=== PATIENT | female | born 1955 | race Caucasian/White ===

== ENCOUNTER 2020-03-20 06:54 | Day surgery (SDC) | payer OTHER, SELFPAY ==
--- NOTE | 2020-03-18 12:50 | P.CONAN_ITS ---
Documented by User: Erlinda Rolle 03/18/20 12:52 HPI - Anesthesia Eval Consult details Narrative: 65yo F [facility] Past Medical History Medical History Anxiety COPD (chronic obstructive pulmonary disease) Depression Hyperlipemia Osteoporosis Overactive bladder Surgical History Surgical History H/O oral surgery Hx of colonoscopy Social History Social History Smoking Status: Current every day smoker Packs Per Day: 0.5 Cigarettes Per Day: 10.0 Advance Directives: No Advance Directives Information Provided: No Meds Allergies Allergy/AdvReac Type Severity Reaction Status Date / Time No Known Allergies Allergy Verified 03/18/20 12:52 Home Medications Medication Instructions Recorded Confirmed Type bupropion HCl 1 tab PO BID 03/16/20 03/16/20 History calcium-mag oxide-vitamin D3 2 cap PO 03/16/20 History [Coral Calcium Plus] cholecalciferol (vitamin D3) 50 mcg PO DAILY 03/16/20 03/16/20 History [Vitamin D3] omega-3 fatty acids-fish oil 1 cap PO DAILY 03/16/20 03/16/20 History [[place] 3 Fish Oil] sertraline 1 tab PO DAILY 03/16/20 03/16/20 History simvastatin 20 mg PO BEDTIME 03/16/20 03/16/20 History umeclidinium [Incruse Ellipta] 1 inh INHALATION DAILY 03/16/20 03/16/20 History Exam Exam Date and Time: March 18, 2020 1250 Assessment and Plan Assessment Anesthesia Assessment: Chart Reviewed (03/18/20 ) Documented by User: Jacob Kumar 03/20/20 08:09 [facility] Past Medical History Medical History Anxiety COPD (chronic obstructive pulmonary disease) Depression Hyperlipemia Osteoporosis Overactive bladder Surgical History Surgical History H/O oral surgery Hx of colonoscopy Social History Social History Smoking Status: Current every day smoker Packs Per Day: 0.5 Cigarettes Per Day: 10.0 Advance Directives: No Advance Directives Information Provided: No Meds Allergies Allergy/AdvReac Type Severity Reaction Status Date / Time No Known Allergies Allergy Verified 03/18/20 12:52 Home Medications Medication Instructions Recorded Confirmed Type bupropion HCl 1 tab PO BID 03/16/20 03/16/20 History calcium-mag oxide-vitamin D3 2 cap PO 03/16/20 History [Coral Calcium Plus] cholecalciferol (vitamin D3) 50 mcg PO DAILY 03/16/20 03/16/20 History [Vitamin D3] omega-3 fatty acids-fish oil 1 cap PO DAILY 03/16/20 03/16/20 History [[place] 3 Fish Oil] sertraline 1 tab PO DAILY 03/16/20 03/16/20 History simvastatin 20 mg PO BEDTIME 03/16/20 03/16/20 History umeclidinium [Incruse Ellipta] 1 inh INHALATION DAILY 03/16/20 03/16/20 History Exam Airway Mallampati Class: II TM Dist: >3cm Neck ROM: Full Loose/Missing/Broken Teeth: No Heart: rrr+[id number] Lungs: cta b/l Assessment and Plan Assessment Anesthesia Assessment: Anesthesia Plan Discussed, Consent Obtained, Smoking Cess. Discussed, PAT Visit and Chart Reviewed Final Anesthetic Review NPO: Yes Intake Type: Clears Intake Timing: Greater than 8 hours and Solids Intake Timing: Greater than 8 hours ASA Class: II Final Preanesthetic Review: No Changes in Pt Med Stat, Meds & Allergies Reviewed , Consent Obtained/Reviewed, Med/Surg/Anes Hx Reviewed and Anes Risks/Benef Reviewed Patient Risk: Low Procedure Risk: Low Anesthetic Plan Anesthetic Plan: MAC: Disposition: Standard PACU
[2020-03-20 07:37] VITALS: BP 106/62; PULSE 80; RESP 16; TEMP 36.2; O2SAT 98; BMI 22.6
[2020-03-20 09:21] VITALS: BP 101/55; PULSE 67; RESP 16; TEMP 36.1; O2SAT 100
--- NOTE | 2020-03-20 09:21 | PM.OP ---
Brief Operative Note Date of procedure: 03/20/20 Pre-op diagnosis: Screening Post-op diagnosis: other (Diverticulosis. Internal Hemorrhoids) Procedure: Colonoscopy to cecum Anesthesia: MAC Surgeon: Luis Antonio Strong Pathology: none sent Condition: stable Disposition: PACU
[2020-03-20 09:36] VITALS: BP 108/51; PULSE 67; RESP 16; O2SAT 100
[2020-03-20 09:49] VITALS: BP 124/68; PULSE 64; RESP 16; TEMP 36.1; O2SAT 99
[2020-03-20] MEDS: Lactated Ringers 1,000 ML 100 ML IVCONT (10:00)
--- NOTE | 2020-03-20 10:10 | HO.POSTANES ---
Post Anesthesia Evaluation Post Anesthesia Evaluation Vital Signs: Vital Signs Temp Pulse Resp BP Pulse Ox 03/20/20 09:49 97 F 64 16 124/68 99 03/20/20 09:36 67 16 108/51 L 100 03/20/20 09:21 97 F 67 16 101/55 L 100 03/20/20 07:37 97.2 F 80 16 106/62 98 Anesthesia: Monitored Mental Status: Awake Pain Control: Satisfactory Nausea/Vomiting: None Hydration: Adequate Anesthesia-Related Issues: No Anes. Related Issues
--- NOTE | 2020-03-20 11:59 | OP_ITS ---
SURGEON: Luis Antonio Strong MD INDICATIONS: The patient presents for evaluation of personal history of tubular adenoma of the colon and colorectal cancer screening. Full consent has been obtained from her for this, including risks of bleeding and perforation. PREOPERATIVE DIAGNOSIS: POSTOPERATIVE DIAGNOSIS: PROCEDURE PERFORMED: Colonoscopy to the cecum. ESTIMATED BLOOD LOSS: COMPLICATIONS: ANESTHESIA: Monitored anesthesia care. ASSISTANTS: SPECIMENS: PREOPERATIVE DIAGNOSES: Colorectal cancer screening and personal history of tubular adenoma of the colon. POSTOPERATIVE DIAGNOSES: Colorectal cancer screening and personal history of tubular adenoma of the colon, sigmoid diverticulosis, and internal hemorrhoids. DESCRIPTION OF PROCEDURE: The patient was placed in the left lateral decubitus position. The digital rectal exam revealed no abnormalities. The Olympus video pediatric colonoscope was entered into the rectum and advanced easily to the cecum. Once in the cecum, I did identify normal-appearing cecal pouch with appendiceal orifice and a normal-appearing ileocecal valve. The entire cecum and ileocecal valve appeared normal. There was transillumination of light deep in the right lower quadrant. The scope was slowly withdrawn assessing all mucosal surfaces carefully. Preparation was excellent. I did not visualize any sign of polyps, colitis, nor angiodysplasia. There was a mild amount of sigmoid diverticulosis. In the rectum, scope was retroflexed visualizing internal hemorrhoids, but no other pathology. The rectal mucosa appeared normal. The scope was straightened and withdrawn from the patient. She tolerated the procedure well and was returned to the recovery area in stable condition. IMPRESSION: 1. Sigmoid diverticulosis. 2. Internal hemorrhoids. PLAN: Given her previous history of tubular adenomas, I would recommend a followup colonoscopy in 5 years for further screening. She will otherwise see me on a p.r.n. basis. MD DESMOND Altman/JOHN / [id number]
== END 2020-03-20 10:12 | disposition home or self-care (01) ==
PROVIDERS: PCP Nurse Practitioner Family; Visit Provider Internal Medicine
PROC: 0DJD8ZZ Inspection of Lower Intestinal Tract, Via Natural or Artificial Opening Endoscopic (ICD-10-PCS; CPT 45378; principal; 2020-03-20 08:10)
DX: Z12.11 Encounter for screening for malignant neoplasm of colon (principal); Z86.010 Personal history of colon polyps; Z80.0 Family history of malignant neoplasm of digestive organs; K57.30 Diverticulosis of large intestine without perforation or abscess without bleeding; K64.8 Other hemorrhoids; J44.9 Chronic obstructive pulmonary disease, unspecified; F32.9 Major depressive disorder, single episode, unspecified; E78.5 Hyperlipidemia, unspecified; N32.81 Overactive bladder; M81.0 Age-related osteoporosis without current pathological fracture; F17.210 Nicotine dependence, cigarettes, uncomplicated; Z79.899 Other long term (current) drug therapy; Z79.51 Long term (current) use of inhaled steroids
CPT/HCPCS: 45378

== ENCOUNTER 2020-04-27 16:38 | Outpatient (REF) | payer OTHER, SELFPAY | END 2020-04-27 16:39 | disposition home or self-care (01) | LOC: HO.LAB 16:38 | PROVIDERS: PCP Nurse Practitioner Family; Visit Provider Internal Medicine | DX: Z20.828 Contact with and (suspected) exposure to other viral communicable diseases (principal) | CPT/HCPCS: C9803; U0003 ==

== ENCOUNTER 2020-05-08 15:06 | Outpatient (REF) | payer SELFPAY ==
--- NOTE | 2020-05-11 14:21 | MHC.AU.P13 ---
Hearing Aid Evaluation- Binaural Date of Visit: 05/08/20 Vending Machine Collector Used: Description of Hearing: Right ear: Normal from 250-1000 Hz, sloping to a moderate sensorineural hearing loss. Left ear: Borderline-normal sloping to moderate sensorineural hearing loss. Thresholds are 5-15 dBHL worse than those in the right ear. Summary: Ms. Alba was tested here on 02/28/20 and hearing aids were recommended. She notes that she's only interested in a hearing aid for the left ear at this time. She is an [employer] [facility] [employer] employee and would qualify for the employee hearing aid discount. Hearing aid options and styles were discussed. DAIN style aids were recommended. She noted that she would likely be interested in rechargeable aids. She was provided with a DataNitro P50-R (SN: [id number]) hearing aid and contour stitcher to use for several weeks to help her better decide whether she would like to pursue amplification at this time. Set to 50 level technology as that is the level she is considering purchasing. Recommendations: Recommendations: Scheduled another appointment for 06/01/20, at which time she will return the loaner hearing aid and contour stitcher and further discuss hearing aid options and make decisions on how she would like to proceed. Diagnosis Code(s): Primary Diagnosis: H90.3 Bilateral Sensorineural Hearing Loss Signature: Provider: Pauly Sampson, [facility]
== END 2020-05-08 15:07 | disposition home or self-care (01) ==
LOC: HO.HAP 15:06
PROVIDERS: PCP Nurse Practitioner Family; Referring Provider Nurse Practitioner Family; Visit Provider Nurse Practitioner Family
DX: Z13.89 Encounter for screening for other disorder (principal)
CPT/HCPCS: 92700

== ENCOUNTER 2020-06-23 10:17 | Outpatient (REF) | payer OTHER, SELFPAY ==
[2020-06-23 10:33] LABS: COVID-19 Test Negative (Negative); IDNOW Serial# 55D5AD1C
== END 2020-06-23 10:18 | disposition home or self-care (01) ==
LOC: HO.EMPCOV 10:17
PROVIDERS: Visit Provider Internal Medicine
DX: Z20.822 Contact with and (suspected) exposure to COVID-19 (principal)
CPT/HCPCS: 36415; 87635; C9803

== ENCOUNTER 2020-07-21 11:42 | Outpatient (REF) | payer SELFPAY ==
[2020-07-21 12:27] LABS: Cholesterol 220 mg/dL
== END 2020-07-21 11:43 | disposition home or self-care (01) ==
LOC: HO.LNC 11:42
PROVIDERS: Visit Provider Pathology Anatomic Pathology & Clinical Pathology
DX: Z13.89 Encounter for screening for other disorder (principal)
CPT/HCPCS: 36415; 82465

== ENCOUNTER 2020-07-29 15:45 | Outpatient (REF) | payer SELFPAY ==
--- NOTE | 2020-07-30 14:34 | MHC.AU.P13 ---
Hearing Aid Evaluation- Left Ear Date of Visit: 07/29/20 Description of Hearing: Borderline-normal sloping to a moderate sensorineural hearing loss in the left ear, worse than the right ear. Normal sloping to moderate sensorineural hearing loss in the right. Additional Information: Ms. Alba has been using a loaner hearing aid and she states that it makes a big difference. She would like to proceed with purchasing a hearing aid for the left ear. Hearing Instrument Selection: Left Ear: Drupal Architect: [employer] Model: iKlax Media P70-R Battery Size: Rechargeable Color: Silver Valle Straight Pin Making Machine Operator: Size 0 M Type of Dome: Open Plan: Plan of Care for Hearing Instrument Fitting: Patient wishes to purchase hearing aids as prescribed Action Taken/Action Needed: Comments: Patient qualifies for the employee discount of 25%. Quoted $1837.50 total for the left hearing aid. Diagnosis Code(s): Primary Diagnosis: H90.3 Bilateral Sensorineural Hearing Loss Signature: Provider: Pauly Sampson, CCC-A
== END 2020-07-29 15:46 | disposition home or self-care (01) ==
LOC: HO.HAP 15:45
PROVIDERS: Visit Provider Nurse Practitioner Family
DX: Z13.89 Encounter for screening for other disorder (principal)

== ENCOUNTER 2020-08-19 15:53 | Outpatient (REF) | payer OTHER, SELFPAY | END 2020-08-19 15:54 | disposition home or self-care (01) | LOC: HO.HAP 15:53 | PROVIDERS: Visit Provider Otolaryngology | DX: Z46.1 Encounter for fitting and adjustment of hearing aid (principal); H90.3 Sensorineural hearing loss, bilateral | CPT/HCPCS: V5257; V5299 ==

== ENCOUNTER 2020-09-19 07:27 | Outpatient (REF) | payer OTHER, SELFPAY ==
--- NOTE | ~2020-09-19 | MM_ITS ---
EXAMINATION: MM SCREENING DIGITAL BREAST TOMOSYNTHESIS, BILATERAL CLINICAL INFORMATION: Screening. Asymptomatic. The lifetime risk of breast cancer based on the Tyrer-Cuzick Model is 8%. COMPARISON: Mammography: 06/29/2019, 06/06/2018, 05/04/2017 TECHNIQUE: Digital breast tomosynthesis is performed in both the craniocaudal and mediolateral oblique views along with computer-aided detection (CAD). Synthesized 2D images are generated from the tomosynthesis. FINDINGS: There are scattered areas of fibroglandular density (ACR BI-RADS breast composition Category b). There are no significant masses, abnormal calcifications, or other abnormalities. The axilla and skin contours are unremarkable. No significant changes from prior exams. MM/MM tomosynthesis screening BI IMPRESSION: No mammographic evidence of malignancy. ASSESSMENT: BI-RADS 1: Negative RECOMMENDATION: Routine annual mammography screening. This patient's information was entered into a reminder system with a target due date for their next mammogram.
== END 2020-09-19 07:28 | disposition home or self-care (01) ==
LOC: HO.MAMMO 07:27
PROVIDERS: PCP Nurse Practitioner Family; Visit Provider Nurse Practitioner Family
DX: Z12.31 Encounter for screening mammogram for malignant neoplasm of breast (principal)
CPT/HCPCS: 77063; 77067

== ENCOUNTER 2021-03-08 07:42 | Outpatient (REF) | payer OTHER, SELFPAY ==
[2021-03-08 10:27] LABS: Hematocrit 45.5 % (37-47); Hemoglobin 14.8 g/dl (12.0-16.0); Mean Corpuscular HGB Conc 32.5 g/dl (31.0-35.0); Mean Corpuscular Hemoglobin 31.4 pg (27.0-33.0); Mean Corpuscular Volume 96.6 fL (80-98); Mean Platelet Volume 10.1 fL (9.4-12.3); Platelet Count 245 X10*3/uL (160-400); Red Blood Count 4.71 X10*6/uL (4.20-5.50); Red Cell Distribution Width 12.6 % (11.0-16.0); White Blood Count 4.6 X10*3/uL (4.8-10.8)
[2021-03-08 10:57] LABS: Alanine Aminotransferase 12 U/L (0-31); Albumin Level 4.1 g/dL (3.5-5.0); Alkaline Phosphatase 58 U/L (39-117); Anion Gap 10 (12-20); Aspartate Amino Transferase 19 U/L (5-31); Bilirubin Total 0.7 mg/dL (0.0-1.0); Blood Urea Nitrogen 13 mg/dL (9-16); Calcium 9.1 mg/dL (8.4-10.2); Carbon Dioxide 28 mmol/L (22-29); Chloride 106 mmol/L (96-108); Cholesterol 256 mg/dL; Estimated Glomerular Filt Rate > 60; Glucose Fasting 99 mg/dL (60-99); HDL Cholesterol 79 mg/dL; LDL Cholesterol Calculated 162 mg/dl; Potassium 4.4 mmol/L (3.3-5.1); Sodium 140 mmol/L (135-145); Triglycerides 79 mg/dL
[2021-03-08 11:01] LABS: HIV AB/AG Nonreactive (Nonreactive); HIV Num 1 0.07 S/CO (0.00-0.99); ~HepC Num1 0.11 S/CO (0.00-0.79); ~Hepatitis C Antibody Nonreactive (Nonreactive)
[2021-03-08 11:35] LABS: Vitamin D 25-OH Total 46.7 ng/mL (>30)
== END 2021-03-08 07:43 | disposition home or self-care (01) ==
LOC: HO.10HDL 07:42
PROVIDERS: Visit Provider Nurse Practitioner Family
DX: Z00.00 Encounter for general adult medical examination without abnormal findings (principal); Z11.59 Encounter for screening for other viral diseases; Z11.4 Encounter for screening for human immunodeficiency virus [HIV]; M85.80 Other specified disorders of bone density and structure, unspecified site
CPT/HCPCS: 36415; 80053; 80061; 82306; 85027; 86803; 87389

== ENCOUNTER 2021-03-10 10:26 | Outpatient (REF) | payer OTHER, SELFPAY ==
--- NOTE | ~2021-03-10 | MM_ITS ---
EXAMINATION: BONE DENSITOMETRY CLINICAL INDICATION: Osteopenia. COMPARISON: Previous BD dated 06/08/2018 and baseline BD dated 11/02/2006. TECHNIQUE: Using a Richmedia DXA System (software version: 13.1) manufactured by [employer], dual-energy x-ray absorptiometry was performed of the lumbar spine and left hip. The images are of good technical quality. Summary results are attached. FINDINGS: AP SPINE L1-L4: Current: BMD 0.963 g/cm2, Z-score -0.1, T-score -1.8, osteopenia, 0.8% increase from previous, 3.8% decrease from baseline (<5% change is not significant). Prior: BMD 0.955 g/cm2. Baseline: BMD 1.001 g/cm2. LEFT FEMUR, NECK: Current: BMD 0.735 g/cm2, Z-score -0.6, T-score -2.2, osteopenia. Prior: BMD 0.766 g/cm2. Baseline: BMD 0.813 g/cm2. LEFT FEMUR, TOTAL: Current: BMD 0.810 g/cm2, Z-score -0.3, T-score -1.6, osteopenia, 0.6% decrease from previous, 10.7% decrease from baseline (<5% change is not significant). Prior: BMD 0.815 g/cm2. Baseline: BMD 0.907 g/cm2. IDENTIFIED RISK FACTORS: Osteoporosis, tobacco use (current smoker). Early menopause, secondary osteoporosis. HISTORY OF FRACTURE: None listed. MEDICATIONS: Calcium supplements or multivitamin, vitamin D. MM/XR DEXA axial skeleton IMPRESSION: 1. DIAGNOSIS: Osteopenia based on the lowest T-score value of -2.2 in the femoral neck applying World Health Organization criteria. 2. 10-YEAR FRACTURE RISK PREDICTION, FRAX: Major osteoporotic fracture (clinical spine, forearm, hip or shoulder) 12.0%. Hip fracture 3.5%. 3. Treatment Recommendations: NOF guidelines recommend consideration for treatment in postmenopausal women and men age 50 and older presenting with the following: -A hip or vertebral (clinical or morphometric) fracture. -T-score less than or equal to -2.5 at the femoral neck or spine after appropriate evaluation to exclude secondary causes. -Low bone mass at the hip or spine and a 10-year fracture probability by FRAX of greater than or equal to 3% for hip fracture or greater than or equal to 20% for major osteoporotic fracture based on the [place] adapted WHO algorithm. 4. Other Recommendations: All treatment decisions require clinical judgment and consideration of individual patient factors, including patient preferences, comorbidities, previous drug use, risk factors not captured in the FRAX model (e.g. frailty, falls, vitamin D deficiency, increased bone turnover, interval significant decline in bone density) and possible under or overestimation of fracture risk by FRAX. Additional medical evaluation for secondary cause of low bone mineral density may be appropriate. FUTURE SCAN RECOMMENDATION: People with diagnosed cases of osteoporosis or at high risk for fracture should have regular bone mineral density tests. For patients eligible for Medicare, routine testing is allowed once every 2 years. The testing frequency can be increased to one year for patients who have rapidly progressing disease, those who are receiving or discontinuing medical therapy to restore bone mass, or have additional risk factors.
== END 2021-03-10 10:27 | disposition home or self-care (01) ==
LOC: HO.MAMMO 10:26
PROVIDERS: Visit Provider Nurse Practitioner Family
DX: Z13.820 Encounter for screening for osteoporosis (principal); M85.80 Other specified disorders of bone density and structure, unspecified site; F17.200 Nicotine dependence, unspecified, uncomplicated; Z78.0 Asymptomatic menopausal state; Z79.899 Other long term (current) drug therapy
CPT/HCPCS: 77080

== ENCOUNTER 2021-06-02 15:41 | Outpatient (REF) | payer OTHER, SELFPAY ==
--- NOTE | 2021-06-03 15:46 | MHC.AU.AHA ---
Adult Audiological Evaluation Date of Visit: 06/02/21 Reason for Appointment: Audiological re-evaluation to monitor the status of Ms. Alba's hearing loss. She has a known bilateral sensorineural hearing loss, worse in her left ear. She uses a hearing aid in the left ear only. She feels her hearing may be gradually getting worse. She notes some difficulty with clarity and hearing the TV. Ms. Alba denies any changes to her medical history. Previous Hearing Test Results: [facility], 02/28/2020 - Normal sloping to moderate asymmetrical sensorineural hearing loss, with the left ear hearing worse than the right. Medical History: Medical History: Tobacco Use Medication List: Bupropion SR 150 mg BID, Restasis eye drops BID, Vitamin B-12 1000 mcg, Vitamin D3 2000 mg Hearing Instrument History- Left Ear: Planning Manager: [facility] Model: Tigglyeo P70-R Serial Number: [id number] Battery Size: Rechargeable Warranty: 10/27/2023 Loss and Damage Warranty: 10/27/2023 Dispensed By: [facility] Date of Fittin08/19/2020 Otoscopy: Right Ear: Unremarkable Left Ear: Unremarkable Tympanometry: Tympanometry performed due to: To assess integrity of the middle ear system Right Ear: Normal Middle Ear System (Type A) Left Ear: Hypercompliant Middle Ear System (Type Ad) Hearing Evaluation: Transducer(s) Used: Insert Earphones, Bone Conduction Method: Conventional Audiometry Stimuli Used: Pure Tones Right Ear: Description of Hearing: Normal hearing from 250-1000 Hz, sloping to a mild to moderate sensorineural hearing loss from 0154-1769 Hz. Left Ear: Description of Hearing: Normal hearing from 250-500 Hz, sloping to a mild to moderate sensorineural hearing loss from 5490-6867 Hz. Hearing in the left ear is 15 dBHL worse than the right at 1000 Hz and 10 dBHL worse at 1500 Hz. Speech Recognition Threshold (SRT): Method Used: Monitored Live Voice Stimuli Used: Spondee Words Right Ear: 20 dBHL Left Ear: 25 dBHL Word Discrimination: Method: Recorded Lists Word Lists Used: NU-6 Right Ear: 96% at 70 dBHL Left Ear: 100% at 70 dBHL Comparison: Compared to most recent evaluation: 5-10 dBHL decrease in hearing from 4920-6896 Hz in the right ear. Hearing in the high-frequencies is now more symmetrical compared to her previous audiogram. Hearing is stable in the left ear. Recommendations: Audiological re-evaluation in one year. Hearing aid maintenance performed today. Hearing aid(s) reprogrammed with updated test results. Hearing aid use is recommended in the right ear as well. Ms. Alba is considering purchasing a right aid as well. She will contact use if she decides she would like to proceed with the purchase. Diagnosis: Primary Diagnosis: H90.3 Bilateral Sensorineural Hearing Loss Services Performed: Comprehensive Audiological Evaluation (CPT 96054) Tympanometry (CPT 57617) Signature: Provider: Pauly Sampson, CCC-A
== END 2021-06-02 15:42 | disposition home or self-care (01) ==
LOC: HO.SH 15:41
PROVIDERS: Visit Provider Nurse Practitioner Family
DX: H90.3 Sensorineural hearing loss, bilateral (principal)
CPT/HCPCS: 92557; 92567

== ENCOUNTER 2021-06-15 15:37 | Outpatient (REF) | payer OTHER, SELFPAY ==
--- NOTE | ~2021-06-15 | CT_ITS ---
EXAMINATION: CT CHEST SCREENING CLINICAL INFORMATION: Smoker. COMPARISON: CT lung screening 10/08/2018 TECHNIQUE: Multidetector volumetric CT imaging of the chest is performed without contrast using low dose technique. Additional 2D coronal and sagittal reformatted images and axial 3D maximum intensity projection (MIP) images are generated on the CT workstation. This CT examination was performed using dose optimization techniques as appropriate, variously including the following: *Automated exposure control *Adjustment of mA and/or kV according to patient size (this includes techniques or standardized protocols for targeted exams where dose is matched to indication/reason for exam; i.e. extremities or head) *Use of iterative reconstruction technique DLP: 62 mGy-cm FINDINGS: LUNGS: Mild emphysematous lungs are seen without any acute consolidation. Mild bilateral apical pleural thickening and apical parenchymal scarring is stable There are no distinct pulmonary nodules or masses seen. There are patchy linear densities in both upper lobes which are stable. No new areas of linear opacity are seen. There is no ground-glass density. No acute consolidation. MEDIASTINUM: The thyroid lobes are symmetric and normal. The central trachea is mildly narrowed at the thyroid level. Otherwise no intraluminal mass or polyp seen. Heart size and the great vessels are of normal caliber. There are trace coronary artery calcifications. No pericardial effusion seen. PLEURA: There is no pleural effusion, pneumothorax or calcification. Minimal bilateral apical pleural thickening is seen. AXILLA: No abnormally sized mediastinal lymph nodes are seen. UPPER ABDOMEN: Visualized liver, spleen, pancreas appear unremarkable. OSSEOUS STRUCTURES: No lytic or sclerotic process is seen. Mild degenerative disc changes T9-T10 disc level is noted. CT/CT lung screening IMPRESSION: Mild emphysematous changes with no distinct pulmonary nodules visualized. Some linear areas of density in both upper lobes and left lower lobe superior segment are essentially stable. There are no newly noted densities. There is bilateral apical pleural thickening and apical scarring with subpleural reticular thickening in the right upper lobe. No cystic changes are visualized. ASSESSMENT: Lung-RADS category 2: Benign RECOMMENDATION: Low-dose annual CT chest.
== END 2021-06-15 15:38 | disposition home or self-care (01) ==
LOC: HO.CT 15:37
PROVIDERS: PCP Nurse Practitioner Family; Visit Provider Physician Assistant Medical
DX: Z12.2 Encounter for screening for malignant neoplasm of respiratory organs (principal); Z87.891 Personal history of nicotine dependence
CPT/HCPCS: 71271

== ENCOUNTER 2022-01-28 08:54 | Outpatient (REF) | payer SELFPAY | END 2022-01-28 08:55 | disposition home or self-care (01) | LOC: HO.HAP 08:54 | PROVIDERS: Visit Provider Nurse Practitioner Family | DX: Z13.89 Encounter for screening for other disorder (principal) ==

== ENCOUNTER 2022-01-31 15:41 | Outpatient (REF) | payer SELFPAY | END 2022-01-31 15:42 | disposition home or self-care (01) | LOC: HO.HAP 15:41 | PROVIDERS: Visit Provider Nurse Practitioner Family | DX: Z13.89 Encounter for screening for other disorder (principal) ==

== ENCOUNTER 2022-03-16 10:36 | Outpatient (REF) | payer OTHER, SELFPAY ==
--- NOTE | ~2022-03-16 | MM_ITS ---
EXAMINATION: MM SCREENING DIGITAL BREAST TOMOSYNTHESIS, BILATERAL CLINICAL INFORMATION: Screening. Asymptomatic. The lifetime risk of breast cancer based on the Tyrer-Cuzick Model is 8%. COMPARISON: Mammography: 09/19/2020, 06/29/2019, 06/06/2018, 05/04/2017 TECHNIQUE: Digital breast tomosynthesis is performed in both the craniocaudal and mediolateral oblique views along with computer-aided detection (CAD). Synthesized 2D images are generated from the tomosynthesis. FINDINGS: There are scattered areas of fibroglandular density (ACR BI-RADS breast composition Category b). There are no significant masses, abnormal calcifications, or other abnormalities. Parenchymal pattern is similar to prior studies. There is no developing density or architectural abnormality. The axilla and skin contours are unremarkable. No significant changes. MM/MM tomosynthesis screening BI IMPRESSION: No mammographic evidence of malignancy. ASSESSMENT: BI-RADS 1: Negative RECOMMENDATION: Routine annual mammography screening. This patient's information was entered into a reminder system with a target due date for their next mammogram.
== END 2022-03-16 10:37 | disposition home or self-care (01) ==
LOC: HO.MAMMO 10:36
PROVIDERS: Visit Provider Nurse Practitioner Family
DX: Z12.31 Encounter for screening mammogram for malignant neoplasm of breast (principal)
CPT/HCPCS: 77063; 77067

== ENCOUNTER 2022-04-19 15:59 | Outpatient (REF) | payer OTHER, SELFPAY ==
--- NOTE | ~2022-04-19 | CT_ITS ---
EXAMINATION: CT CHEST SCREENING CLINICAL INFORMATION: Current smoker. 48 pack year history. COMPARISON: Previous chest CT most recent May 2021 TECHNIQUE: Multidetector volumetric CT imaging of the chest is performed without contrast using low dose technique. Additional 2D coronal and sagittal reformatted images and axial 3D maximum intensity projection (MIP) images are generated on the CT workstation. This CT examination was performed using dose optimization techniques as appropriate, variously including the following: *Automated exposure control *Adjustment of mA and/or kV according to patient size (this includes techniques or standardized protocols for targeted exams where dose is matched to indication/reason for exam; i.e. extremities or head) *Use of iterative reconstruction technique DLP: 34 mGy-cm FINDINGS: LUNGS: There is mild emphysema. There is mild biapical pleural and parenchymal scarring. The lungs are otherwise clear. No endobronchial or endotracheal lesion. MEDIASTINUM: The mediastinum is normal. CORONARY ARTERY CALCIFICATION: Mild PLEURA: There is no pleural effusion. No pleural mass or thickening. AXILLA: No lymphadenopathy. UPPER ABDOMEN: Unremarkable OSSEOUS STRUCTURES: Mild degenerative changes. CT/CT lung screening IMPRESSION: Mild emphysema and biapical pleural and parenchymal scarring similar to previous exams. Mild coronary artery calcification. ASSESSMENT: Lung-RADS category 2: Benign RECOMMENDATION: Annual low-dose chest CT follow-up recommended.
== END 2022-04-19 16:00 | disposition home or self-care (01) ==
LOC: HO.CT 15:59
PROVIDERS: PCP Nurse Practitioner Family; Visit Provider Physician Assistant Medical
DX: Z12.2 Encounter for screening for malignant neoplasm of respiratory organs (principal); Z87.891 Personal history of nicotine dependence
CPT/HCPCS: 71271

== ENCOUNTER 2022-04-28 08:56 | Outpatient (REF) | payer OTHER, SELFPAY ==
--- NOTE | 2022-04-28 11:31 | MHC.AU.HFU ---
Hearing Instrument Follow-Up- Binaural Date of Visit: 04/28/22 Left Ear: Seth Baker P70-R SN: [id number] Color: Silver Valle Repair Warranty: 10/27/2023 Loss and Damage Warranty: 10/27/2023 Battery Size: Rechargeable Multi Mission Helicopter Aircrewman: Size 0 M Type of Mold: Small open dome Type of Wax Guard: Cerushield Dispensed By: [facility] Date of Fittin08/19/2020 Follow-Up Summary: Sarah returned for routine hearing aid maintenance. Her hearing aid was cleaned, microphones were vacuumed, and dome and wax guard were replaced. A listening check demonstrated that the hearing aid is in good working order. Sarah reported that overall she is doing well with her hearing aid. She is now considering pursuing a hearing aid for the right ear. Discussed changes in pricing structure and quoted $2464.00 for the same hearing aid as the left ear. As an [employer] [facility] [employer] employee, hearing aid evaluation fee as well as service plan fee will be waived. Recommendations: Trial with hearing aid for right ear. Sarah would like to consider options and will contact the clinic if she decides to pursue a hearing aid for the right ear. Diagnosis Code(s): Primary Diagnosis: H90.3 Bilateral Sensorineural Hearing Loss Signature: Provider: Pamela Callejas, [facility]
== END 2022-04-28 08:57 | disposition home or self-care (01) ==
LOC: HO.SH 08:56
PROVIDERS: Visit Provider Nurse Practitioner Family
DX: Z01.118 Encounter for examination of ears and hearing with other abnormal findings (principal); H90.3 Sensorineural hearing loss, bilateral
CPT/HCPCS: 92552; 92556

== ENCOUNTER 2022-05-24 15:57 | Outpatient (REF) | payer SELFPAY ==
--- NOTE | 2022-05-24 16:44 | MHC.AU.HFU ---
Hearing Instrument Follow-Up- Binaural Date of Visit: 05/24/22 Left Ear: Advisor To Command In Combat: Phonak Model: Audeo P70-R Serial Number: Seth Gastoneo P70-R, SN: [id number], Silver Valle Repair Warranty: 10/27/2023 Loss and Damage Warranty: 10/27/2023 Battery Size: Rechargeable Lead Carpenter: Size 0 M Type of Dome: Small open Type of Mold: Small open dome Type of Wax Guard: Halley Dispensed By: [facility] Date of Fittin08/19/2020 Follow-Up Summary: The patient is here to demo a right hearing aid as she is interested in purchasing a matching right hearing aid. The patient's left hearing aid was not charged upon arrival so I programmed a pair of clinic Phonak Audeo P70-R hearing aids to the patient's audiogram. Ran feedback intelligence manager. The patient initially reported somewhat loud, tinny sound but over time she really liked listening binaurally in office. She decided to proceed with purchasing the matching right hearing aid. Quoted $2314 due at the fitting. No other fees as the patient is an employee. Once the right hearing aid arrives, our office will call the patient to schedule the fitting. Most recent audiogram is dated 04/28/22. Consider medium domes at fitting bilaterally. Diagnosis Code(s): Primary Diagnosis: H90.3 Bilateral Sensorineural Hearing Loss Signature: Provider: Pauly Soto, [facility]
== END 2022-05-24 15:58 | disposition home or self-care (01) ==
LOC: HO.HAP 15:57
PROVIDERS: Visit Provider Nurse Practitioner Family
DX: Z13.89 Encounter for screening for other disorder (principal)

== ENCOUNTER 2022-06-08 09:22 | Outpatient (REF) | payer SELFPAY ==
--- NOTE | 2022-06-08 10:53 | MHC.AU.HFA ---
Hearing Instrument Fitting- Adult- Binaural Date of Visit: 06/08/22 Hearing Instruments: Right Ear: Phonak Audeo P70-R, [id number], Silver Loving Repair Warranty: 08/22/2025 Loss and Damage Warranty: 08/22/2025 Service Plan: N/A- [facility] [place] Battery Size: Rechargeable Motorcycle Designer: OM Type of Dome: M Open Type of Wax Guard: CeruShield Disk Left Ear: Aeronautical Engineering Teacher: Phonak Audeo P70-R, [id number], Silver Valle Repair Warranty: 10/27/2023 Loss and Damage Warranty: 10/27/2023 Service Plan: N/A- [facility] [place] Battery Size: Rechargeable Motorcycle Designer: OM Type of Dome: M Open Type of Wax Guard: Cerushield Accessories/Assistive Technology: Communication Manager x2 (from each fitting) Summary of Fitting: The patient is here today for a right hearing aid fitting. She wears an existing Phonak Audeo P70-R for the left ear and is getting a matching right hearing aid. The right hearing aid was programmed to her most recent audiogram dated 04/28/22 with her left hearing aid. Feedback park recreation manager was re-run bilaterally. 100% target gain. Volume control enabled. Speech mapping indicates the right hearing aid is functioning and meeting targets appropriately. We reviewed cleaning and general hearing aid care. The patient was able to manipulate and insert the hearing aids with ease. The importance of consistent use was discussed. We paired the hearing aids to her iPhone and Makoondi toi. We reviewed connectivity and practiced listening to music. The patient really enjoyed learning about this feature. She reported good sound and volume from the hearing aids. She paid $2314 today. She is an employee at [employer] [facility] [place] so I reviewed employee benefits and explained charges should she no longer be employed here. She signed the bill of [employer] and medical clearance waiver. A copy was given of the bill of [employer]. She will return as needed, or in 1 year for annual follow up. No other questions reported at this time. Diagnosis Code(s): Primary Diagnosis: H90.3 Bilateral Sensorineural Hearing Loss Signature: Provider: Pauly Soto, [facility]
== END 2022-06-08 09:23 | disposition home or self-care (01) ==
LOC: HO.HAP 09:22
PROVIDERS: Visit Provider Nurse Practitioner Family
DX: Z46.1 Encounter for fitting and adjustment of hearing aid (principal); H90.3 Sensorineural hearing loss, bilateral
CPT/HCPCS: V5257

== ENCOUNTER 2022-11-24 08:12 | Outpatient (REF) | payer OTHER, SELFPAY ==
[2022-11-24 11:23] LABS: Hematocrit 45.7 % (37.0-47.0); Hemoglobin 14.6 g/dl (12.0-16.0); Mean Corpuscular HGB Conc 31.9 g/dl (31.0-35.0); Mean Corpuscular Hemoglobin 31.5 pg (27.0-33.0); Mean Corpuscular Volume 98.5 fL (80.0-98.0); Mean Platelet Volume 10.6 fL (9.4-12.3); Platelet Count 214 X10*3/uL (160-400); Red Blood Count 4.64 X10*6/uL (4.20-5.50); Red Cell Distribution Width 12.9 % (11.0-16.0); White Blood Count 3.9 X10*3/uL (4.8-10.8)
[2022-11-24 11:25] LABS: Alanine Aminotransferase 13 U/L (0-31); Albumin Level 3.9 g/dL (3.5-5.0); Alkaline Phosphatase 52 U/L (39-117); Anion Gap 10 (12-20); Aspartate Amino Transferase 20 U/L (5-31); Bilirubin Total 0.9 mg/dL (0.0-1.0); Blood Urea Nitrogen 12 mg/dL (9-16); Calcium 9.3 mg/dL (8.4-10.2); Carbon Dioxide 29 mmol/L (22-29); Chloride 109 mmol/L (96-108); Cholesterol 229 mg/dL; Estimated Glomerular Filt Rate > 60; Glucose Fasting 100 mg/dL (60-99); HDL Cholesterol 71 mg/dL; LDL Cholesterol Calculated 141 mg/dl; Potassium 4.6 mmol/L (3.3-5.1); Sodium 143 mmol/L (135-145); Triglycerides 88 mg/dL
== END 2022-11-24 08:13 | disposition home or self-care (01) ==
LOC: HO.10HDL 08:12
PROVIDERS: Visit Provider Nurse Practitioner Family
DX: Z00.00 Encounter for general adult medical examination without abnormal findings (principal); E78.2 Mixed hyperlipidemia
CPT/HCPCS: 36415; 80053; 80061; 85027

== ENCOUNTER 2023-02-22 13:21 | Outpatient (REF) | payer SELFPAY | END 2023-02-22 13:22 | disposition home or self-care (01) | LOC: HO.HAP 13:21 | PROVIDERS: Visit Provider Nurse Practitioner Family | DX: Z13.89 Encounter for screening for other disorder (principal) ==

== ENCOUNTER 2023-03-08 15:41 | Outpatient (REF) | payer SELFPAY | END 2023-03-08 15:42 | disposition home or self-care (01) | LOC: HO.HAP 15:41 | PROVIDERS: Visit Provider Nurse Practitioner Family | DX: Z13.89 Encounter for screening for other disorder (principal) ==

== ENCOUNTER 2023-03-14 15:41 | Outpatient (REF) | payer SELFPAY | END 2023-03-14 15:42 | disposition home or self-care (01) | LOC: HO.HAP 15:41 | PROVIDERS: Visit Provider Nurse Practitioner Family | DX: Z13.89 Encounter for screening for other disorder (principal) ==

== ENCOUNTER 2023-03-30 16:11 | Outpatient (REF) | payer SELFPAY | END 2023-03-30 16:12 | disposition home or self-care (01) | LOC: HO.HAP 16:11 | PROVIDERS: Visit Provider Nurse Practitioner Family | DX: Z13.89 Encounter for screening for other disorder (principal) ==

== ENCOUNTER 2023-04-12 12:25 | Outpatient (REF) | payer SELFPAY | END 2023-04-12 12:26 | disposition home or self-care (01) | LOC: HO.HAP 12:25 | PROVIDERS: Visit Provider Nurse Practitioner Family | DX: Z13.89 Encounter for screening for other disorder (principal) ==

== ENCOUNTER 2023-04-12 12:35 | Outpatient (REF) | payer OTHER, SELFPAY ==
[2023-04-12 13:17] LABS: MANUAL DIFF FLAG NO
[2023-04-12 13:22] LABS: Basophils Absolute Auto 0.1 X10*3/uL (0.0-0.2); Basophils Percent Auto 0.8 % (0-2); Eosinophils Absolute Auto 0.1 X10*3/uL (0.0-0.4); Eosinophils Percent Auto 1.6 % (0-4); Hematocrit 41.9 % (37.0-47.0); Hemoglobin 13.6 g/dl (12.0-16.0); Imm Gran Abs Auto 0.01 X10*3/uL (0.00-0.03); Imm Gran Pct Auto 0.2 % (0.0-0.4); Lymphocytes Percent Auto 31.2 % (20-40); Mean Corpuscular HGB Conc 32.5 g/dl (31.0-35.0); Mean Corpuscular Hemoglobin 31.8 pg (27.0-33.0); Mean Corpuscular Volume 97.9 fL (80.0-98.0); Mean Platelet Volume 10.1 fL (9.4-12.3); Monocytes Absolute Auto 0.7 X10*3/uL (0.1-1.2); Monocytes Percent Auto 10.7 % (2-11); Neutrophils Absolute Auto 3.5 x10*3/uL (2.0-8.3); Neutrophils Percent Auto 55.5 % (45-73); Platelet Count 244 X10*3/uL (160-400); Red Blood Count 4.28 X10*6/uL (4.20-5.50); Red Cell Distribution Width 12.8 % (11.0-16.0); White Blood Count 6.3 X10*3/uL (4.8-10.8)
== END 2023-04-12 12:36 | disposition home or self-care (01) ==
LOC: HO.10HDL 12:35
PROVIDERS: Visit Provider Nurse Practitioner Family
DX: D72.819 Decreased white blood cell count, unspecified (principal)
CPT/HCPCS: 36415; 85025

== ENCOUNTER 2023-04-14 15:41 | Outpatient (REF) | payer SELFPAY | END 2023-04-14 15:42 | disposition home or self-care (01) | LOC: HO.HAP 15:41 | PROVIDERS: Visit Provider Nurse Practitioner Family | DX: Z13.89 Encounter for screening for other disorder (principal) ==

== ENCOUNTER 2023-07-04 09:22 | Outpatient (REF) | payer OTHER, SELFPAY ==
--- NOTE | ~2023-07-04 | MM_ITS ---
EXAMINATION: MM SCREENING DIGITAL BREAST TOMOSYNTHESIS, BILATERAL CLINICAL INFORMATION: Screening. Asymptomatic. COMPARISON: Mammography: 03/08/2022, 09/19/2020, 06/29/2019, 06/06/2018, 05/04/2017. TECHNIQUE: Digital breast tomosynthesis is performed in both the craniocaudal and mediolateral oblique views along with computer-aided detection (CAD). Synthesized 2D images are generated from the tomosynthesis. FINDINGS: There are scattered areas of fibroglandular density (ACR BI-RADS breast composition Category b). There are no suspicious masses, suspicious grouped calcifications, or areas of architectural distortion in either breast. The parenchymal pattern is stable from prior exams. There are no skin or axillary abnormalities. MM/MM tomosynthesis screening BI IMPRESSION: No mammographic evidence of malignancy. ASSESSMENT: BI-RADS BI-RADS 1 - Negative RECOMMENDATION: Routine annual mammography screening. 1 year F/U This examination should not preclude the clinical evaluation of a suspicious palpable abnormality. This patient's information was entered into a reminder system with a target due date for their next mammogram.
== END 2023-07-04 09:23 | disposition home or self-care (01) ==
LOC: HO.MAMMO 09:22
PROVIDERS: Visit Provider Nurse Practitioner Family
DX: Z12.31 Encounter for screening mammogram for malignant neoplasm of breast (principal)
CPT/HCPCS: 77063; 77067

== ENCOUNTER → 2023-07-04 09:45 | Outpatient (BNV) | payer OTHER, SELFPAY | PROVIDERS: Visit Provider Radiology Diagnostic Radiology | DX: Z12.31 Encounter for screening mammogram for malignant neoplasm of breast (principal) | CPT/HCPCS: 77063; 77067 ==

== ENCOUNTER 2023-07-14 07:40 | Outpatient (REF) | payer OTHER, SELFPAY ==
--- NOTE | ~2023-07-14 | MM_ITS ---
EXAMINATION: BONE DENSITOMETRY CLINICAL INDICATION: Age-related osteoporosis without current pathological fracture. COMPARISON: Previous BD dated 03/10/2021 and baseline BD dated 11/02/2006. TECHNIQUE: Using a Mipagar DXA System (software version: 13.1) manufactured by [employer], dual-energy x-ray absorptiometry was performed of the lumbar spine and left hip. The images are of good technical quality. Summary results are attached. FINDINGS: LEFT FEMUR, NECK: Current: BMD 0.718 g/cm2, Z-score -0.6, T-score -2.3, osteopenia. Prior: BMD 0.735 g/cm2. Baseline: BMD 0.813 g/cm2. LEFT FEMUR, TOTAL: Current: BMD 0.772 g/cm2, Z-score -0.4, T-score -1.9, osteopenia, 4.7% decrease from previous, 14.9% decrease from baseline (<5% change is not significant). Prior: BMD 0.810 g/cm2. Baseline: BMD 0.907 g/cm2. AP SPINE L1-L4: Current: BMD 0.912 g/cm2, Z-score -0.5, T-score -2.2, osteopenia, 5.3% decrease from previous, 8.9% decrease from baseline (<5% change is not significant). Prior: BMD 0.963 g/cm2. Baseline: BMD 1.001 g/cm2. IDENTIFIED RISK FACTORS: Early menopause, secondary osteoporosis, tobacco user (current smoker). HISTORY OF FRACTURE: None listed. MEDICATIONS: Calcium, vitamin D. MM/XR DEXA axial skeleton IMPRESSION: 1. DIAGNOSIS: Osteopenia based on the lowest T-score value of -2.3 in the femoral neck applying World Health Organization criteria. 2. 10-YEAR FRACTURE RISK PREDICTION, FRAX: Major osteoporotic fracture (clinical spine, forearm, hip or shoulder) 13.3%. Hip fracture 4.6%. 3. Treatment Recommendations: NOF guidelines recommend consideration for treatment in postmenopausal women and men age 50 and older presenting with the following: -A hip or vertebral (clinical or morphometric) fracture. -T-score less than or equal to -2.5 at the femoral neck or spine after appropriate evaluation to exclude secondary causes. -Low bone mass at the hip or spine and a 10-year fracture probability by FRAX of greater than or equal to 3% for hip fracture or greater than or equal to 20% for major osteoporotic fracture based on the [place] adapted WHO algorithm. 4. Other Recommendations: All treatment decisions require clinical judgment and consideration of individual patient factors, including patient preferences, comorbidities, previous drug use, risk factors not captured in the FRAX model (e.g. frailty, falls, vitamin D deficiency, increased bone turnover, interval significant decline in bone density) and possible under or overestimation of fracture risk by FRAX. Additional medical evaluation for secondary cause of low bone mineral density may be appropriate. FUTURE SCAN RECOMMENDATION: People with diagnosed cases of osteoporosis or at high risk for fracture should have regular bone mineral density tests. For patients eligible for Medicare, routine testing is allowed once every 2 years. The testing frequency can be increased to one year for patients who have rapidly progressing disease, those who are receiving or discontinuing medical therapy to restore bone mass, or have additional risk factors.
== END 2023-07-14 07:41 | disposition home or self-care (01) ==
LOC: HO.MAMMO 07:40
PROVIDERS: Visit Provider Nurse Practitioner Family
DX: Z13.820 Encounter for screening for osteoporosis (principal); Z78.0 Asymptomatic menopausal state; M81.0 Age-related osteoporosis without current pathological fracture
CPT/HCPCS: 77080

== ENCOUNTER 2023-08-15 16:06 | Outpatient (REF) | payer OTHER, SELFPAY ==
--- NOTE | ~2023-08-15 | CT_ITS ---
EXAMINATION: CT CHEST LOW-DOSE SCREENING WITHOUT CONTRAST HISTORY: Asymptomatic patient meeting criteria for lung screening. No history of lung carcinoma. PATIENT PACK-YEAR HISTORY: 50 Current Smoker: Yes If former smoker, years since quitting: Not applicable COMPARISON: CT lung screening on 04/19/20[address] volumetric non-contrast CT imaging of the chest was obtained on a Siemens Definition 64 scanner using low-dose screening CT technique. Axial thin section 0.625 mm reformations in soft tissue and lung windows were obtained. Sagittal and coronal reformations were obtained. Axial MIP images were also created and reviewed. RECONSTRUCTED WIDTH: 1.25 mm x 1.[address] examination was performed using dose optimization techniques as appropriate, variously including the following: *Automated exposure control *Adjustment of mA and/or kV according to patient size (this includes techniques or standardized protocols for targeted exams where dose is matched to indication/reason for exam; i.e. extremities or head) *Use of iterative reconstruction technique TOTAL EXAM DLP: 40 mGy-cm CTDIvol: 0.92 mGy FINDINGS: LUNGS: Lungs bilaterally symmetrically expanded. No focal lung nodule or mass. No effusion or pneumothorax. Central airways patent. Persistent bilateral posterior apical lung fibrotic scars are present. -At least one micronodule (nodule measuring less than 4 mm) is present without interval change. LYMPHATIC STRUCTURES: No mediastinal, hilar or axillary adenopathy or free fluid collection. THYROID GLAND: Unremarkable to the extent seen. CARDIOVASCULAR STRUCTURES: Aortic and heart size normal. Mild coronary artery calcifications. No pericardial effusion. UPPER ABDOMEN: Included portions of the solid organs in the upper abdomen unremarkable on noncontrast imaging. OSSEOUS STRUCTURES: No suspicious focal findings. SPINAL COMPRESSION: Absent. Lower degenerative thoracic disc disease and sclerotic vertebral endplate changes are present. CT/CT lung screening IMPRESSION: 1. No findings suspicious for malignancy/pulmonary nodule(s)/other. 2. Benign. LUNG-RADS CATEGORY ASSESSMENT: 2: Benign INCIDENTAL FINDINGS (S CATEGORY): Finding: No incidental findings. Significance category: Normal or normal variant. RECOMMENDATION: Low dose lung CT. overall in 1 year. Visual estimate of coronary calcified plaque burden: Mild. However, this exam cannot replace a dedicated cardiac CT calcium score for accurate assessment.
== END 2023-08-15 16:07 | disposition home or self-care (01) ==
LOC: HO.CT 16:06
PROVIDERS: PCP Internal Medicine; Visit Provider Nurse Practitioner Family
DX: Z12.2 Encounter for screening for malignant neoplasm of respiratory organs (principal); Z87.891 Personal history of nicotine dependence
CPT/HCPCS: 71271

== ENCOUNTER 2023-08-29 12:52 | Outpatient (AMB) | payer OTHER, SELFPAY ==
--- NOTE | 2023-08-29 12:52 | AM.OFFWIN_ITS ---
Intake Vital Signs 08/29/23 12:59 08/29/23 13:42 Height 5 ft 6 in Weight 134 lb BMI 21.6 BP 120/56 L Blood Pressure Location Lt brachial Position Sitting Pulse 102 H 94 Pulse Source Pulse Oximeter Palpation Temp 97.0 F Temp Source Temporal Artery Scan Pulse Oximetry (%) 96 Oxygen Delivery Method Room Air Intake Visit Reasons: ? Sinus Infection (Lobby) Intake Note: pt is here today for sinus infection started monday Patient Tobacco Use Status: Current everyday Tobacco user Allergies No Known Allergies Allergy (Verified 08/29/23 12:54) Do you need a note to return to daycare/school/sports/work: No HPI HPI Comments History of Present Illness Details Patient is a 68-year-old female here today for sick visit. She has a past medical history significant for hyperlipidemia and COPD. Patient states that for the past 3 days she has developed symptoms of cough, sore throat, sinus tenderness. Patient has taken [id number] medication with little relief, including NyQuil. Patient denies sick contacts but does work at a [employer]. Denies chest pain, shortness a breath, dizziness, numbness, nausea, vomiting, diarrhea. She does state that she has diminished appetite. She is able to drink plenty water. [facility] Medical History Overactive bladder Hyperlipemia Anxiety Depression COPD (chronic obstructive pulmonary disease) Osteoporosis Surgical History H/O oral surgery Hx of colonoscopy Social History Patient Tobacco Use Status: Current everyday Tobacco user Cigarette Packs Per Day: 0.5 Cigarettes Per Day: 10.0 Review of Systems Const All systems reviewed & are unremarkable except as noted in HPI and below ENT Reports otalgia, Reports nasal congestion, Reports sinus pain, Reports sinus pressure and Reports sore throat Physical Exam Vital Signs: Last Vital Signs Temp 97.0 F 08/29/23 12:59 Pulse 102 H 08/29/23 12:59 BP 120/56 L 08/29/23 12:59 Pulse Ox 96 08/29/23 12:59 Oxygen Delivery Method Room Air 08/29/23 12:59 BMI result Body Mass Index 21.6 Patient's vital signs reviewed stable. Puls during physical exam 92. Const Other: Appearance: Alert.? Oriented X3.? No acute distress.? Head: Normocephalic, atraumatic, Eyes: Pupils equal, round and reactive to light.? ENT: Pharynx erythema and cobblestone. TM intact and pearly lucero effusion with no erythema. ? Neck: Normal inspection.? Neck supple.? CVS: Normal heart rate and rhythm.? Pulses normal.? Respiratory: Breathe sounds diminished bilaterally. ? Abdomen: Soft and nontender.? Neuro: Oriented X 3.? No motor deficit.? No sensory deficit. CN 2-12 intact Assessment & Plan Assessment & Plan (1) Sinusitis: Comment: Will give patient azithromycin and prednisone to be taken as directed. Will also give patient albuterol inhaler as she does not have 1 at home. Patient has been educated on side effects of the medication Code(s): J32.9 - Chronic sinusitis, unspecified Qualifiers: Sinusitis location: other Chronicity: acute Recurrence: not specified as recurrent Qualified Code(s): J01.80 - Other acute sinusitis Plan: Take your medications as prescribed. If you were prescribed antibiotics today, it is important that you take your medication to their entirety, do not skip any doses, do not finish them early. Follow-up with your primary care provider this week. Return to the emergency department with new or worsening symptoms. Such as fevers, chills, chest pain, shortness of breath, nausea, vomiting, dizziness, headache, vision changes, lethargy In case of emergency call 911 Plan Patient should follow-up with PCP or walk-in clinic if symptoms do not improve over the next few days. Medications: New prednisone 20 mg PO DAILY 5 tabs 0RF albuterol sulfate 90 mcg/actuation 2 puffs inhalation Q6H PRN 6.7 grams 0RF shortness of breath or wheezing azithromycin For 250 mg dose pack: take 500 mg today (day 1), then 250 mg for 4 days (days 2-5) PO 6 tabs 0RF Coding Level of Care Code Est Pt Level 3 (83759) Diagnoses Other acute sinusitis, recurrence not specified J01.80 Sinusitis location: other Chronicity: acute Recurrence: not specified as recurrent Time Spent (min) 22
[2023-08-29 12:59] VITALS: BP 120/56; PULSE 102; TEMP 36.1; O2SAT 96; BMI 21.6
[2023-08-29 13:42] VITALS: PULSE 94
== END 2023-08-29 15:44 | disposition home or self-care (01) ==
PROVIDERS: PCP Internal Medicine; Visit Provider Nurse Practitioner Primary Care
DX: J01.80 Other acute sinusitis (principal)
CPT/HCPCS: 99213

== ENCOUNTER 2023-10-06 15:44 | Outpatient (REF) | payer OTHER, SELFPAY | END 2023-10-06 15:45 | disposition home or self-care (01) | LOC: HO.HAP 15:44 | PROVIDERS: Visit Provider Nurse Practitioner Family | DX: Z13.89 Encounter for screening for other disorder (principal) ==

== ENCOUNTER 2023-10-09 15:21 | Outpatient (REF) | payer SELFPAY | END 2023-10-09 15:22 | disposition home or self-care (01) | LOC: HO.HAP 15:21 | PROVIDERS: Visit Provider Nurse Practitioner Family | DX: Z13.89 Encounter for screening for other disorder (principal) ==

== ENCOUNTER 2024-03-25 10:50 | Outpatient (AMB) | payer OTHER, SELFPAY ==
--- NOTE | 2024-03-25 10:53 | A.OFFPC_ITS ---
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 Intake Note: new patient to establish care Allergies No Known Allergies Allergy (Verified 03/25/24 11:31) Medication List - Last Reconciled 03/25/24 by Shirley Kemp, FRAUD EXAMINER-BC atorvastatin 20 mg PO DAILY bupropion HCl SR 1 tab PO BID calcium-mag oxide-vitamin D3 250-125-200 mg-mg-unit 2 caps PO cholecalciferol (vitamin D3) (Vitamin D3) 50 mcg PO DAILY escitalopram oxalate 5 mg PO DAILY omega-3 fatty acids-fish oil 684-1,200 mg 1 cap PO DAILY Tobacco use date assessed: 03/25/24 Dental Screening Dental Screen Date: 03/25/24 Did you have a dental visit in the last 12 months?: Yes Did you have a dental problem in the last 6 months where you did not have access to dental care?: No Was dental information given to patient?: Patient has dentist HPI HPI Comments History of Present Illness Details 69 y/o F with sigmoid diverticulosis, in ternal hemorrhoids, hx of tubular adenoma, current smoker, CAD (noted on CT of lung 08/15/23), hyperlidip emia, Lower degenerative thoracic disc disease and sclerotic vertebral endplate arthritis, Overactive bladder, MDD, EZEQUIEL, COPD, SCC Skin cancer, osteopenia s/p R eye retinal tear w/ laser repair 2023 Social: [place] [employer] [place] the [employer]; , 2 daughters, 1 son. Family hx: Mom with colon ca (dx in 80's) , Sister w/ breast ca, Skin cancer Health Maintenance: ? Colon 2019 Dr Strong: history of tubular adenomas,recommend a followup colonoscopy in 5 years for further screening. ? Mammo 07/04/23 ? DEXA 07/14/23 Osteopenia ? 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 Aged out. ? Tdap will give today; Declined Flu. Declined PCV. Declined Shingles. * Lung cancer screening active in program at [facility] Specialists: [place] Derm Dr Schuster q6mo Counseling in the past; Prescriber [facility] in the past. Optho Retinal specialist Here today as a new patient to establish care and for complete physical exam. No old records available for her previous primary care provider Nguyen Dewitt. Her last appointment was March of 2023 Overall she feels like her health is pretty well. Active w/ Derm for recurrent skin ca. Recent bx of Right thigh, results pending. Mood: Was active in counseling in the past. Since stopped. Escitalopram recently increased in September 2023 to 15mg. This was managed by outside prescriber. This will be ff'd by PCP going forward. Mood is stable. Pickle ball helps. Admits SAD. Denies SI and HI Optho - wears glasses. Active with retinal specialist Sleeps well Cont to smoke; has tried chantix, gum and patch in the past. Chantix helpful but worsened mood. This was about 10 years ago. Recommend: Tdap today CBT (cognitive behavior therapy) for smoking cessation. Please find something that works with her insurance and then has availability to take a new patient, if a referral is needed please send me a message on the patient portal Continue all medications as currently prescribed Check routine screening labs today Return to the office in 6 months for routine follow up of hyperlipidemia, COPD, sooner as needed Check ultrasound imaging of the neck to evaluate the left AC adenopathy noted on exam today. I will follow up with the you with results once available of come up with a plan of care. This note is constructed using voice recognition software. While every effort has been made to ensure accuracy in manager story, still errors may have been included Sometimes, these errors may affect the content or meaning of the given sentence . [facility] Medical History (Updated 03/26/24 @ 07:39 by Shirley Kemp, OSMAN-) Skin cancer Overactive bladder Hyperlipemia Anxiety Depression COPD (chronic obstructive pulmonary disease) Osteoporosis Surgical History H/O oral surgery Hx of colonoscopy Family History (Updated 03/25/24 @ 11:22 by Milagros Chen MA) Mother High cholesterol Colon cancer Father Cardiovascular disease Sister Breast cancer Social History (Updated 03/25/24 @ 11:01 by Milagros Chen MA) Household Members: None Both parents involved: No Caregiver staying overnight: No Housing: House Are you a primary career coordinator to a significant other at home: No Do you presently have visiting nurse or other home services: No 75 years or older and lives alone: No Alcohol intake: current Alcohol intake frequency: 0-2 drinks per day Alcohol type: wine Patient Tobacco Use Status: Current everyday Tobacco user Tobacco use type: Cigarette Cigarette Packs Per Day: 0.5 Cigarettes Per Day: 10.0 e-Cigarette/Vaping Use: Never Used service: No Current occupational status: employed Current occupation: [employer] Cognitive needs: No Hearing needs: Yes (has hearing aid) Vision needs: Yes (wear glasses) Questionnaire PHQ-9 Over the last 2 weeks, how often have you been bothered by any of the following problems? 1. Little interest or pleasure in doing things: not at all 2. Feeling down, depressed, or hopeless: not at all 3. Trouble falling or staying asleep, or sleeping too much: not at all 4. Feeling tired or having little energy: not at all 5. Poor appetite or overeating: not at all 6. Feeling bad about yourself - or that you are a failure or have let yourself or your family down: not at all 7. Trouble concentrating on things, such as reading the newspaper or watching television: not at all 8. Moving or speaking so slowly that other people could have noticed. Or the opposite - being so fidgety or restless that you have been moving around a lot more than usual: not at all 9. Thoughts that you would be better off or of hurting yourself in some way: not at all Total score: 0 Depression Screening Interpretation: Negative Depression Screening Done: Yes 85140 - PHQ-9 Billing: Yes Source: Developed by Drs. Luis Antonio Cota, Marlyn Stockton, August Díaz and colleagues, with an educational moy from [employer]. Thrive Questionnaire Date Thrive assessed: 03/25/24 I am a: Patient What is your living situation today?: I have a steady place to live Within the past 12 months, did the food you bought not last and you didn't have the money to get more?: Never true Within the past 12 months, did you worry whether your food would run out before you got money to buy more?: Never true Do you have trouble paying for medicines?: No Do you have trouble getting transportation to medical appointments?: No Do you have trouble paying your heating and electricity bill?: No Do you have trouble taking care of your child, family member or friend?: No Do you have trouble with day-to-day activities such as bathing, preparing meals, shopping, managing finances, etc.?: No Are you currently unemployed and looking for a job?: No Are you interested in more education?: No Please select the resources that you would like help with: None Currently or been in a relationship where the following occur: No concerns reported THRIVE Score: 0 AUDIT C Alcohol Use Questionnaire (AUDIT-C) 1. How often do you have a drink containing alcohol?: Monthly or less 2. How many drinks containing alcohol do you have on a typical day when you are drinking?: 1 or 2 3. How often do you have six or more drinks on one occasion?: Never Total Score: 1 Score Reviewed/Action Taken: Yes EZEQUIEL-7 AMB Questionnaire EZEQUIEL-7 Date EZEQUIEL - 7 assessed: 03/25/24 Feeling nervous, anxious, or on edge: 0 = Not at all Not being able to stop or control worryin = Not at all Worrying too much about different things: 0 = Not at all Trouble relaxin = Not at all Being so restless that it is hard to sit still: 0 = Not at all Becoming easily annoyed or irritable: 0 = Not at all Feeling afraid as if something awful might happen: 0 = Not at all Total EZEQUIEL-7 score (0-4 normal; 5-9 mild; 10-14 moderate; 15-21 severe): 0 Source: Developed by Drs. Luis Antonio Cota, Marlyn Stockton, August Díaz and colleagues, with an educational moy from [employer]. EZEQUIEL-7 Assessment Billing EZEQUIEL-7 Assessment Tool: EZEQUIEL-7 Assessment 02083 Review of Systems Const Details: Constitutional: Denies fever. Skin: Denies rash. Eye: Denies eye pain. ENMT: Denies sore throat and nasal congestion. Respiratory: Denies shortness of breath and cough. Gastrointestinal: Denies nausea, vomiting or abdominal pain. Cardiovascular: Denies chest pain and syncope. Genitourinary: Denies dysuria. Musculoskeletal: Denies back pain and extremity pain. Neurologic: Denies headaches, confusion, and weakness. Psychiatric: Denies suicidal thoughts and substance abuse. Allergy/ Immunologic: Denies impaired immunity. Physical exam (Primary Care) Vital Signs: Last Vital Signs Pulse 70 03/25/24 11:01 Resp 13 03/25/24 11:01 BP 118/62 03/25/24 11:01 Pulse Ox 97 03/25/24 11:01 Oxygen Delivery Method Room Air 03/25/24 11:01 BMI result Body Mass Index 20.8 Tobacco/Smoking Status: Tobacco use Status Tobacco use date assessed 03/25/24 03/25/24 11:03 Patient Tobacco Use Status Current everyday Tobacco 03/25/24 11:01 Tobacco use type Cigarette 03/25/24 11:03 e-Cigarette/Vaping Use Never Used 03/25/24 11:03 Are you ready to quit: No Tobacco cessation counseling provided: Yes Items discussed: Other Relapse Prevention: discussed the importance of a supportive environment, discussed extending NRT, discussed negative mood or depression after quitting, weight gain after smoking is common and discussed dietary, exercise and/or lifestyle changes Number of minutes spent counselin CPT code: 82462 - 4-10 Minutes PHQ-9: PHQ-9 Score PHQ-9: Total score 0 03/25/24 11:42 Depression Screening Interpretation: Negative Thrive Assessment: Date of Thrive Assessment Date Thrive assessed 03/25/24 03/25/24 11:23 Currently or been in a relationship where the following occur: No concerns reported Const Other: General: Well developed, well nourished, in no acute distress. Appears stated age. Head: Normocephalic, atraumatic. Eyes: Pupils are equal, round and reactive to light and accommodation. Conjunctivae are clear. Vision grossly normal. Ears: TMs clear AU, EACS WNL Nose: Patent, without discharge. Mouth: There are no ulcers or lesions noted. No inflammation, no post nasal drip, no plaques nor exudates. Neck: Supple, no thyromegaly. Left AC is a fixed, hard, immobile lymphnode about alf down the neck. Overlying skin is intact. Lungs: Clear to auscultation bilaterally. No rales, rhonchi or wheeze noted. Good air flow in all hemphill. Heart: Regular rate and rhythm. No murmurs, click, rubs or gallops are noted. Abdomen: Bowel sounds present in all quadrants. The abdomen is soft, nontender, with no masses or organomegaly noted. No hernias are noted. Musculoskeletal: Joints are nontender, without swelling, redness, or effusions. Range of motion is observed to be normal. Pulses: Peripheral pulses are equal and palpable bilaterally. Hairless, decreased PP bilat, skin intact. Extremities: No clubbing, cyanosis nor edema is noted. Neurologic: Gait and station normal. Cranial Nerves 2-12 intact. Motor strength grossly symmetrical and intact. No sensory loss. Balance normal. Skin: No rashes, ulcers noted. Turgor is good. Skin color is good. Hair and nails are without abnormalities. Psych: Normal eye contact, affect and mood appropriate, and normal interactions. Patient is alert and appropriate to context. Immunizations Boostrix Tdap 2.5 Lf unit-8 mcg-5 Lf/0.5 mL intramuscular syringe Performing Provider: PRACHI Clement [place] [facility] [place] [facility] Administered by: Sarah Hartman RN on 03/25/24 11:41 Dose Route Admin Location Dispensed Lot Number Expiration Date [facility] [place] [facility] Safety Engineer 0.5 mL IM Right Deltoid 0.5 mL [id number] 03/16/25 [id number] Simple Star VIS Given Date VIS Provided VIS Publication Date 03/25/24 Single Vaccine 21 Eligibility Eligibility Date Funding Source Not [facility] Eligible 03/25/24 Private Coding Level of Care Code New Pt Level 3 (82069) New Pt Prev Care >65yr (93823) Diagnoses Encounter for general adult medical examination with abnormal findings Z00.01 Mixed hyperlipidemia E78.2 Hyperlipidemia type: mixed hyperlipidemia Laboratory exam ordered as part of routine general medical examination Z00.00 Tobacco dependence F17.200 Mild episode of recurrent major depressive disorder F33.0 Major depression episode severity: mild EZEQUIEL (generalized anxiety disorder) F41.1 SCCA (squamous cell carcinoma) of skin C44.92 Osteopenia of multiple sites M85.89 Osteopenia location: multiple sites Coronary artery disease involving [place] coronary artery of [place] heart without angina pectoris I25.10 Coronary Disease-Associated Artery/Lesion type: [place] artery [place] vs. transplanted heart: [place] heart Associated angina: without angina PVD (peripheral vascular disease) I73.9 Simple chronic bronchitis J41.0 COPD type: chronic bronchitis Chronic bronchitis type: simple Overactive bladder N32.81 Influenza vaccination declined Z28.21 Pneumococcal vaccination declined Z28.21 Herpes zoster vaccination declined Z28.21 Lymphadenopathy R59.1 Additional Codes EZEQUIEL-7 Assessment Billing - EZEQUIEL-7 Assessment Tool: EZEQUIEL-7 Assessment 75075 ([id number]) Vital Signs *Quality* - CPT code: 52672 - 4-10 Minutes ([id number]) Assessment & Plan Assessment & Plan (1) Encounter for general adult medical examination with abnormal findings: Code(s): Z00.01 - Encounter for general adult medical examination with abnormal findings Plan: Health screenings for women You should visit your health care provider from time to time, even if you are healthy. The purpose of these visits is to: Screen for medical issues Assess your risk for future medical problems Encourage a healthy lifestyle Update vaccinations and other preventive care services Help you get to know your provider in case of an illness Information Even if you feel fine, you should still see your provider for regular checkups. These visits can help you avoid problems in the future. For example, the only way to find out if you have high blood pressure is to have it checked regularly. High blood sugar and high cholesterol levels also may not have any symptoms in the early stages. A simple blood test can check for these conditions. There are specific times when you should see your provider or receive specific health screenings. The [place] Preventive Services Task Force publishes a list of recommended screenings. Below are screening guidelines for women ages 18 to 39. BLOOD PRESSURE SCREENING Your blood pressure should be checked at least once every 3 to 5 years if: Your blood pressure is in the normal range (top number less than 120 mm Hg and bottom number less than 80 mm Hg) You don't have risk factors for high blood pressure Ask your provider if you need your blood pressure checked more often if: The top number is 120 to 129 mm Hg or the bottom number is 70 to 79 mm Hg You have diabetes, heart disease, kidney problems, are overweight, or have certain other health conditions You have a first-degree relative with high blood pressure You are Black You had high blood pressure during a If the top number is 130 mm Hg or greater or the bottom number is 80 mm Hg or greater, this is considered stage 1 hypertension. Schedule an appointment with your provider to learn how you can reduce your blood pressure. Watch for blood pressure screenings in your area. Ask your provider if you can stop in to have your blood pressure checked. BREAST CANCER SCREENING Experts do not agree about the benefits of breast self-exams in finding breast cancer or saving lives. Talk to your provider about what is best for you. A screening mammogram is not recommended for most women under age 40. Your provider may discuss and recommend mammograms, MRI scans, or ultrasounds if you have an increased risk for breast cancer, such as: A mother or sister who had breast cancer at a young age (most often starting screening earlier than the age the close relative was diagnosed) You carry a high-risk genetic marker CERVICAL CANCER SCREENING Cervical cancer screening should start at age 21 years unless your provider advises otherwise. After the first test: Women ages 21 through 29 should have a Pap test every 3 years. Exoprts do not agree on whether HPV testing is recommended for this age group. Women ages 30 through 65 should be screened with either a Pap test every 3 years or the HPV test every 5 years or both tests every 5 years (called cotesting ). Women who have been treated for precancer (cervical dysplasia) should continue to have Pap tests for 20 years after treatment or until age 65, whichever is longer. If you have had your uterus and cervix removed (total hysterectomy), and you have not been diagnosed with cervical cancer or precancer (high grade cervical neoplasia), you do not need cervical cancer screening. CHOLESTEROL SCREENING Cholesterol screening should begin at: Age 45 for women with no known risk factors for coronary heart disease Age 20 for women with known risk factors for coronary heart disease Repeat cholesterol screening should take place: Every 5 years for women with normal cholesterol levels More often if changes occur in lifestyle (including weight gain and diet) More often if you have diabetes, heart disease, kidney problems, or certain other conditions DIABETES SCREENING You should be screened for diabetes starting at age 35 and then repeated every 3 years if you have no risk factors for diabetes. Screening may need to start earlier and be repeated more often if you have other risk factors for diabetes, such as: You have a first degree relative with diabetes. You are overweight or have obesity. You have high blood pressure, prediabetes, or a history of heart disease. Screening for diabetes should be done if you are planning to become and you are overweight and have other risk factors such as high blood pressure. DENTAL EXAM Go to the dentist once or twice every year for an exam and cleaning. Your dentist will evaluate if you need more frequent visits. EYE EXAM Have an eye exam every 5 to 10 years before age 40. If you have vision problems, have an eye exam every 2 years or more often if recommended by your provider. You should have an eye exam that includes an examination of your retina (back of your eye) at least every year if you have diabetes. IMMUNIZATIONS Commonly needed vaccines include: Flu shot: get one every year. COVID-19 vaccine: ask your provider what is best for you. Tetanus-diphtheria and acellular pertussis (Tdap) vaccine: have one at or after age 19 as one of your tetanus-diphtheria vaccines if you did not receive it as an adolescent. Tetanus-diphtheria: have a booster (or Tdap) every 10 years. Varicella vaccine: receive 2 doses if you never had chickenpox or the varicella vaccine. Hepatitis B vaccine: receive 2, 3, or 4 doses, depending on your exact circumstances. Measles, mumps, and rubella (MMR) vaccine: receive 1 to 2 doses if you are not already immune to MMR. Your provider can tell you if you are immune. Ask your provider about the human papillomavirus (HPV) vaccine if: You have not received the HPV vaccine in the past You have not completed the full vaccine series (you should catch up on this shot) Ask your provider if you should receive other immunizations if you have certain health problems that increase your risk for some diseases such as pneumonia. INFECTIOUS DISEASE SCREENING Women who are sexually active should be screened for chlamydia and gonorrhea up until age 25. Women 25 years and older should be screened for chlamydia and gonorrhea if at high risk. Screening for hepatitis C: All adults ages 18 to 79 should get a one-time test for hepatitis C. people should be screened at every . Screening for human immunodeficiency virus (HIV): All people ages 15 to 65 should get a one-time test for HIV. Depending on your lifestyle and medical history, you may also need to be screened for infections such as syphilis and HIV, as well as other infections. PHYSICAL EXAM All adults should visit their provider from time to time, even if they are healthy. The purpose of these visits is to: Screen for disease Assess your risk of future medical problems Encourage a healthy lifestyle Update your vaccinations and other preventive care services Maintain a relationship with a provider in case of an illness Your height, weight, and BMI should be checked at every exam. During your exam, your provider may ask you about: Depression and anxiety Diet and exercise Alcohol and tobacco use Safety issues, such as using seat belts, smoke detectors, and intimate partner violence Your medicines and risk for interactions SKIN SELF-EXAM Your provider may check your skin for signs of skin cancer, especially if you're at high risk, such as if you: Have had skin cancer before Have close relatives with skin cancer Have a weakened immune system OTHER SCREENING Talk with your provider about colon cancer screening if you have a strong family history of colon cancer or polyps, or if you have had inflammatory bowel disease or polyps yourself. Routine bone density screening of women under 40 is not recommended. (2) Hyperlipemia: Code(s): E78.5 - Hyperlipidemia, unspecified Category: Medical Qualifiers: Hyperlipidemia type: mixed hyperlipidemia Qualified Code(s): E78.2 - Mixed hyperlipidemia Plan: . (3) Laboratory exam ordered as part of routine general medical examination: Code(s): Z00.00 - Encounter for general adult medical examination without abnormal findings Category: Medical Plan: . (4) Tobacco dependence: Code(s): F17.200 - Nicotine dependence, unspecified, uncomplicated Category: Medical Plan: Smoking Cessation How to Quit There are a lot of ways to quit smoking and many resources to help you. Family members, friends, and co-workers may be supportive or encouraging, but to be successful the desire and commitment to quit must be your own. Most people who have been able to successfully quit smoking made at least one unsuccessful attempt in the past. Try not to view past attempts to quit as failures, but rather as learning experiences. Stopping smoking or using smokeless tobacco is difficult, but anyone can do it. Know the symptoms to expect when you stop. Common symptoms include: ? An intense craving for nicotine ? Anxiety, tension, restlessness, frustration, or impatience ? Difficulty concentrating ? Drowsiness or trouble sleeping, as well as bad dreams and nightmares ? Drowsiness and trouble sleeping ? Headaches ? Increased appetite and weight gain ? Irritability or depression How severe your symptoms are depends on how long you smoked and how many c igarettes you smoked each day. Feel ready to quit? ? First and foremost, set a quit date and quit completely on that day. Before your quit date, you may begin reducing your cigarette use. But remember, there is no safe level of cigarette smoking. ? List the reasons why you want to quit. Include both short- and long-term benefits. ? Identify the times you are most likely to smoke. For example, do you tend to smoke when feeling stressed or down? When out at night with friends? While drinking coffee or alcohol? When bored? While driving? Right after a meal or sex? During a work break? While watching TV or playing cards? When you are with other smokers? ? Let all of your friends, family, and co-workers know of your plan to stop smoking and your quit date. Just being aware that they know what you're going through can be helpful, especially when you are grumpy. ? Get rid of all your cigarettes just before the quit date, and clean out anything that smells like smoke, such as clothes and furniture. Make a plan about what you will do instead of smoking at those times when you are most likely to smoke. ? Be as specific as possible. For example, drink tea instead of coffee -- tea may not trigger the desire for a cigarette. Or, take a walk when you feel stressed. ? Remove ashtrays and cigarettes from the car. Place pretzels or hard candies there instead. Pretend-smoke with a straw. ? Find activities that focus your hands and mind but are not taxing or fattening. Computer games, solitaire, knitting, sewing, and crossword puzzles may help. ? If you normally smoke after eating, find other ways to end a meal. Play a tape or CD, eat a piece of fruit, get up and make a phone call, or take a walk (a good distraction that also figueroa calories). Make other changes in your lifestyle. ? Change your daily schedule and habits. Eat at different times or eat several small meals instead of three large ones. Sit in a different chair or even a different room. ? Satisfy your oral habits by eating celery or other low-calorie snack, chewing sugarless gum, or sucking on a cinnamon stick. ? Go to public places and restaurants where smoking is prohibited or restricted. ? Eat regular meals and don't eat too much candy or sweet things. ? Get more exercise. Take walks or ride a bike. Exercise helps relieve the urge to smoke. Set short-term quitting goals and reward yourself when you meet them. ? Every day, put the money you normally spend on cigarettes in a jar. Then buy something pleasurable after a period of time. ? Try not to think about all the days ahead you will need to avoid smoking. Take it one day at a time. ? Even one puff or one cigarette will make your desire for more cigarettes even stronger. However, it is normal to make mistakes. So even if you have one cigarette, you don't need to take the next one. Other tips to help you quit smoking and stick to it: ? Enroll in a smoking cessation program (hospitals, health departments, community centers, and work sites often offer programs). Learn about self-hypnosis or other techniques. ? Ask your health care provider about prescription medications that are safe and appropriate for you. ? Find out about nicotine patches, gum, and sprays. The [employer]'s web site -- www.cancer.org -- is an excellent resource for smokers who are trying to quit, and the [facility] [facility] can help some smokers kick the habit. Above all, don't get discouraged if you aren't able to quit smoking the first time. Nicotine addiction is a hard habit to break. Try something different next time. Develop new strategies, and try again. Many people take several attempts to finally kick the habit. (5) MDD (major depressive disorder), recurrent episode: Code(s): F33.9 - Major depressive disorder, recurrent, unspecified Category: Medical Qualifiers: Major depression episode severity: mild Qualified Code(s): F33.0 - Major depressive disorder, recurrent, mild Plan: . (6) EZEQUIEL (generalized anxiety disorder): Code(s): F41.1 - Generalized anxiety disorder Category: Medical Plan: . (7) SCCA (squamous cell carcinoma) of skin: Comment: Active with a [place] [facility] Code(s): C44.92 - Squamous cell carcinoma of skin, unspecified Category: Medical Plan: . (8) Osteopenia: Comment: On calcium and vitamin-D Code(s): M85.80 - Other specified disorders of bone density and structure, unspecified site Category: Medical Qualifiers: Osteopenia location: multiple sites Qualified Code(s): M85.89 - Other specified disorders of bone density and structure, multiple sites Plan: . (9) CAD (coronary artery disease): Comment: (noted on CT of lung 08/15/23) Currently on statin, LDL goal less than 70, smoking cessation Code(s): I25.10 - Atherosclerotic heart disease of [place] coronary artery without angina pectoris Category: Medical Qualifiers: Coronary Disease-Associated Artery/Lesion type: [place] artery [place] vs. transplanted heart: [place] heart Associated angina: without angina Qualified Code(s): I25.10 - Atherosclerotic heart disease of [place] coronary artery without angina pectoris Plan: . (10) PVD (peripheral vascular disease): Comment: Based on clinical exam, on statin, monitor skin integrity Code(s): I73.9 - Peripheral vascular disease, unspecified Category: Medical Plan: . (11) COPD (chronic obstructive pulmonary disease): Comment: Without exacerbation, managed without inhalers, active with lung cancer screening program, smoking cessation encouraged Code(s): J44.9 - Chronic obstructive pulmonary disease, unspecified Category: Medical Qualifiers: COPD type: chronic bronchitis Chronic bronchitis type: simple Qualified Code(s): J41.0 - Simple chronic bronchitis Plan: . (12) Overactive bladder: Code(s): N32.81 - Overactive bladder Category: Medical Plan: . (13) Influenza vaccination declined: Code(s): Z28.21 - Immunization not carried out because of patient refusal Category: Medical Plan: . (14) Pneumococcal vaccination declined: Code(s): Z28.21 - Immunization not carried out because of patient refusal Category: Medical Plan: . (15) Herpes zoster vaccination declined: Code(s): Z28.21 - Immunization not carried out because of patient refusal Category: Medical Plan: . (16) Lymphadenopathy: Comment: LEFT AC ADENOPATHY, HARD FIXED An additional 30 was spent addressing the problem(s) noted at todays visit. This includes time spent before the visit reviewing the chart, time spent during the visit, and time spent after the visit on documentation The ability to check an ultrasound. Spoke cessation encouraged. We need to order a CT scan or place referral based on the ultrasound findings. Discuss with patient today and she is in agreement. I will relay results once available. Code(s): R59.1 - Generalized enlarged lymph nodes Category: Medical Plan: . Plan . Orders: Orders Hemoglobin A1c 03/25/24 E78.5 - Hyperlipidemia, unspecified, Z00.00 - Encounter for general adult medical examination without abnormal findings Lipid Panel 03/25/24 E78.5 - Hyperlipidemia, unspecified, Z00.00 - Encounter for general adult medical examination without abnormal findings Vitamin D 25-OH Total 03/25/24 E78.5 - Hyperlipidemia, unspecified, Z00.00 - Encounter for general adult medical examination without abnormal findings TSH reflex Free T4 03/25/24 E78.5 - Hyperlipidemia, unspecified, Z00.00 - Enc ounter for general adult medical examination without abnormal findings Vitamin B12 and Folate 03/25/24 E78.5 - Hyperlipidemia, unspecified, Z00.00 - Encounter for general adult medical examination without abnormal findings US soft tiss head and/or neck 03/25/24 R59.1 - Generalized enlarged lymph nodes TDaP Immunization 03/25/24 Z23 - Encounter for immunization Complete Blood Count no Diff 03/25/24 E78.5 - Hyperlipidemia, unspecified, Z00.00 - Encounter for general adult medical examination without abnormal findings IRON PROFILE 03/25/24 E78.5 - Hyperlipidemia, unspecified, Z00.00 - Encounter for general adult medical examination without abnormal findings Microalbumin, Random (w Creat) 03/25/24 E78.5 - Hyperlipidemia, unspecified, Z00.00 - Encounter for general adult medical examination without abnormal findings Comprehensive [place]. Panel Fast 03/25/24 E78.5 - Hyperlipidemia, unspecified, Z00.00 - Encounter for general adult medical examination without abnormal findings Medications: New bupropion HCl SR (Wellbutrin SR) 150 mg PO BID 180 tabs 0RF escitalopram oxalate 15 mg (1.5 x 10 mg) PO DAILY 90 days 135 tabs 0RF
[2024-03-25 11:01] VITALS: BP 118/62; PULSE 70; RESP 13; O2SAT 97; BMI 20.8
== END 2024-03-25 12:15 | disposition home or self-care (01) ==
PROVIDERS: PCP Nurse Practitioner Family; Visit Provider Nurse Practitioner Family
DX: Z00.01 Encounter for general adult medical examination with abnormal findings (principal); E78.2 Mixed hyperlipidemia; Z00.00 Encounter for general adult medical examination without abnormal findings; F17.200 Nicotine dependence, unspecified, uncomplicated; F33.0 Major depressive disorder, recurrent, mild; F41.1 Generalized anxiety disorder; C44.92 Squamous cell carcinoma of skin, unspecified; M85.89 Other specified disorders of bone density and structure, multiple sites; I25.10 Atherosclerotic heart disease of native coronary artery without angina pectoris; I73.9 Peripheral vascular disease, unspecified; J41.0 Simple chronic bronchitis; N32.81 Overactive bladder; Z28.21 Immunization not carried out because of patient refusal; R59.1 Generalized enlarged lymph nodes

== ENCOUNTER → 2024-03-25 10:50 | Outpatient (BNVA) | payer OTHER, SELFPAY | PROVIDERS: PCP Nurse Practitioner Family; Visit Provider Nurse Practitioner Family | DX: Z00.01 Encounter for general adult medical examination with abnormal findings (principal); E78.2 Mixed hyperlipidemia; F17.210 Nicotine dependence, cigarettes, uncomplicated; F33.0 Major depressive disorder, recurrent, mild; F41.1 Generalized anxiety disorder; Z23 Encounter for immunization; C44.92 Squamous cell carcinoma of skin, unspecified; M85.89 Other specified disorders of bone density and structure, multiple sites; I25.10 Atherosclerotic heart disease of native coronary artery without angina pectoris; I73.9 Peripheral vascular disease, unspecified; J41.0 Simple chronic bronchitis; N32.81 Overactive bladder; R59.1 Generalized enlarged lymph nodes; Z28.21 Immunization not carried out because of patient refusal | CPT/HCPCS: 90471; 90715; 96127 ==

== ENCOUNTER 2024-03-28 08:31 | Outpatient (REF) | payer OTHER, SELFPAY ==
[2024-03-28 11:00] LABS: Hemoglobin 13.9 g/dl (12.0-16.0); Mean Corpuscular HGB Conc 32.3 g/dl (31.0-35.0); Mean Corpuscular Volume 98.9 fL (80.0-98.0); Platelet Count 200 X10*3/uL (160-400); Red Blood Count 4.35 X10*6/uL (4.20-5.50); Red Cell Distribution Width 12.8 % (11.0-16.0); White Blood Count 4.9 X10*3/uL (4.8-10.8)
[2024-03-28 11:15] LABS: Estimated Average Glucose 94 mg/dL; Hemoglobin A1C 110.0418 umol/L; Hemoglobin A1c % 4.9 % (<6.0); Total Hemoglobin (HGBA1C) 3630.0393 umol/L
[2024-03-28 11:23] LABS: Alanine Aminotransferase 12 U/L (0-31); Alkaline Phosphatase 65 U/L (39-117); Anion Gap 9 (12-20); Aspartate Amino Transferase 21 U/L (5-31); Bilirubin Total 0.5 mg/dL (0.0-1.0); Blood Urea Nitrogen 15 mg/dL (9-16); Calcium 9.1 mg/dL (8.4-10.2); Carbon Dioxide 29 mmol/L (22-29); Chloride 106 mmol/L (96-108); Cholesterol 216 mg/dL (<200); Estimated Glomerular Filt Rate > 60; Glucose Fasting 121 mg/dL (60-99); HDL Cholesterol 74 mg/dL (>40); Iron 68 mcg/dL (30-160); LDL Cholesterol Calculated 129 mg/dL (<100); Percent Iron Saturation 28 % (15-50); Potassium 4.2 mmol/L (3.3-5.1); Sodium 140 mmol/L (135-145); Total Iron Binding Capacity 244 mcg/dL (228-428); Total Protein 6.2 g/dL (6.5-8.0); Triglycerides 66 mg/dL (<150); Unsaturated Iron Binding 176 ug/dL
[2024-03-28 11:26] LABS: TSH reflex Free T4 0.98 uIU/mL (0.32-4.0); Vitamin D 25-OH Total 57.7 ng/mL (>30)
[2024-03-28 11:37] LABS: Creatinine Urine 56.29 mg/dL; Microalbum/Creatinine Ratio Ur 17.7 ug/mg cr (<30)
[2024-03-28 11:42] LABS: Folate 9.5 ng/mL (> or = 4.0); Vitamin B12 565 pg/mL (200-900)
== END 2024-03-28 08:32 | disposition home or self-care (01) ==
LOC: HO.10HDL 08:31
PROVIDERS: Visit Provider Nurse Practitioner Family
DX: Z00.00 Encounter for general adult medical examination without abnormal findings (principal); E78.5 Hyperlipidemia, unspecified; Z13.1 Encounter for screening for diabetes mellitus
CPT/HCPCS: 36415; 80053; 80061; 82043; 82306; 82570; 82607; 82746; 83036; 83540; 84443; 85027

== ENCOUNTER 2024-04-02 15:49 | Outpatient (REF) | payer OTHER, SELFPAY ==
--- NOTE | ~2024-04-02 | US_ITS ---
EXAMINATION: US NECK SOFT TISSUES CLINICAL INFORMATION: Generalized lymphadenopathy. COMPARISON: None available. TECHNIQUE: Real-time ultrasound examination of the soft tissues of the neck was performed. Images were supplemented by color Doppler. FINDINGS: Cervical lymph nodes are identified as follows: Right: No lymph node demonstrated. Left: Level not indicated by the technologist other than left neck mid : Node #1: 0.4 x 0.2 cm in transverse dimension by 1.8 cm in longitudinal dimension. Normal fatty hilum. No yanni calcification, cystic change, focus of increased echogenicity or focal vascularity in the yanni cortex is identified. Of incidental note, there is a 0.4 x 0.4 x 0.3 cm solid, hypoechoic left mid thyroid nodule, TI-RADS category 4 for which no further dedicated follow-up imaging is indicated, per ACR recommendation. US/US soft tiss head and/or neck IMPRESSION: Essentially unremarkable ultrasound examination of the soft tissues of the neck. No evidence of adenopathy. Electronically signed by: Germain Padron MD 04/03/2024 09:44 AM EDT
== END 2024-04-02 15:50 | disposition home or self-care (01) ==
LOC: HO.US 15:49
PROVIDERS: PCP Nurse Practitioner Family; Visit Provider Nurse Practitioner Family
DX: R59.1 Generalized enlarged lymph nodes (principal)
CPT/HCPCS: 76536

== ENCOUNTER 2024-04-23 12:14 | Outpatient (AMB) | payer OTHER, SELFPAY ==
--- NOTE | 2024-04-23 12:18 | A.OFFPC_ITS ---
Intake Visit Reasons: Go over results Allergies No Known Allergies Allergy (Verified 04/23/24 12:18) Medication List - Last Reconciled 04/23/24 by OSMAN Clement- atorvastatin 40 mg PO BEDTIME bupropion HCl SR (Wellbutrin SR) 150 mg PO BID calcium-mag oxide-vitamin D3 250-125-200 mg-mg-unit 2 caps PO cholecalciferol (vitamin D3) (Vitamin D3) 50 mcg PO DAILY escitalopram oxalate 15 mg (1.5 x 10 mg) PO DAILY 90 days omega-3 fatty acids-fish oil 684-1,200 mg 1 cap PO DAILY Tobacco use date assessed: 03/25/24 Dental Screening Dental Screen Date: 03/25/24 HPI HPI Comments History of Present Illness Details 69 y/o F with sigmoid diverticulosis, in ternal hemorrhoids, hx of tubular adenoma, current smoker, CAD (noted on CT of lung 08/15/23), hyperlidipemia, Lower degenerative thoracic disc disease and sclerotic vertebral endplate arthritis, Overactive bladder, MDD, EZEQUIEL, COPD, SCC Skin cancer, osteopenia Telehealth appt today to review US of neck, soft tissue, done to eval incidental left AC adenopathy noted on exam. Level not indicated by the technologist other than left neck mid : Node #1: 0.4 x 0.2 cm in transverse dimension by 1.8 cm in longitudinal dimension. Normal fatty hilum. No yanni calcification, cystic change, focus of increased echogenicity or focal vascularity in the yanni cortex is identified. Of incidental note, there is a 0.4 x 0.4 x 0.3 cm solid, hypoechoic left mid thyroid nodule, TI-RADS category 4 for which no further dedicated follow-up imaging is indicated, per ACR recommendation. Plan Reviewed these results with her today. Despite the above, she is a smoker and there is a concern. After reviewing risks and benefits, watching and waiting, decision was made to check CT of neck to eval lymph node and thyroid nodule. I will fu with her once results are back, sooner PRN. This note is constructed using voice recognition software. While every effort has been made to ensure accuracy in preliminary school psychologist, still errors may have been included Sometimes, these errors may affect the content or meaning of the given sentence . Total time spent caring for the patient today was 18 minutes. This includes time spent before the visit reviewing the chart, time spent during the visit, and time spent after the visit on documentation [facility] Medical History (Updated 04/23/24 @ 16:40 by OSMAN Clement-) Skin cancer Overactive bladder Hyperlipemia Anxiety Depression COPD (chronic obstructive pulmonary disease) Osteoporosis Surgical History H/O oral surgery Hx of colonoscopy Family History (Updated 03/25/24 @ 11:22 by Milagros Chen MA) Mother High cholesterol Colon cancer Father Cardiovascular disease Sister Breast cancer Social History (Updated 03/25/24 @ 11:01 by Milagros Chen MA) Household Members: None Both parents involved: No Caregiver staying overnight: No Housing: House Are you a primary wound care center consultant to a significant other at home: No Do you presently have visiting nurse or other home services: No 75 years or older and lives alone: No Alcohol intake: current Alcohol intake frequency: 0-2 drinks per day Alcohol type: wine Patient Tobacco Use Status: Current everyday Tobacco user Tobacco use type: Cigarette Cigarette Packs Per Day: 0.5 Cigarettes Per Day: 10.0 e-Cigarette/Vaping Use: Never Used service: No Current occupational status: employed Current occupation: [employer] Cognitive needs: No Hearing needs: Yes (has hearing aid) Vision needs: Yes (wear glasses) Questionnaire Thrive Questionnaire Date Thrive assessed: 03/25/24 EZEQUIEL-7 AMB Questionnaire EZEQUIEL-7 Date EZEQUIEL - 7 assessed: 03/25/24 Source: Developed by Drs. Luis Antonio Cota, Marlyn Stockton, August Díaz and colleagues, with an educational moy from [facility]. Physical exam (Primary Care) Tobacco/Smoking Status: Tobacco use Status Tobacco use date assessed 03/25/24 04/23/24 12:18 Patient Tobacco Use Status Current everyday Tobacco 04/23/24 12:18 Tobacco use type Cigarette 04/23/24 12:18 e-Cigarette/Vaping Use Never Used 04/23/24 12:18 Thrive Assessment: Date of Thrive Assessment Date Thrive assessed 03/25/24 04/23/24 12:18 Telehealth Telehealth Telehealth Platform: [facility] Location of provider rendering services: practice address Location of patient: address on file Patient Identification confirmed using: Name, : Yes Telehealth method: voice only Patient verbally consented to treatment: Yes Patient verbally consented to billing insurance company: Yes Patient informed of any privacy concerns related to visit: Yes Minutes spent on Phone/Video with Pt.: 12 Results Reviewed Results Reviewed: [address] [address] Ultrasound Report Signed Patient: Sarah Alba MR#: [id number] : 1955 Acct:[id number] Age/Sex: 69 / F ADM Date: 04/02/24 Loc: HO.US Attending Dr: Shirley DÍAZ Ordering Physician: Shirley Kemp Date of Service: 04/02/24 Procedure(s): US soft tiss head and/or neck Accession Number(s): [id number] cc: Shirley Kemp~ EXAMINATION: US NECK SOFT TISSUES CLINICAL INFORMATION: Generalized lymphadenopathy. COMPARISON: None available. TECHNIQUE: Real-time ultrasound examination of the soft tissues of the neck was performed. Images were supplemented by color Doppler. FINDINGS: Cervical lymph nodes are identified as follows: Right: No lymph node demonstrated. Left: Level not indicated by the technologist other than left neck mid : Node #1: 0.4 x 0.2 cm in transverse dimension by 1.8 cm in longitudinal dimension. Normal fatty hilum. No yanni calcification, cystic change, focus of increased echogenicity or focal vascularity in the yanni cortex is identified. Of incidental note, there is a 0.4 x 0.4 x 0.3 cm solid, hypoechoic left mid thyroid nodule, TI-RADS category 4 for which no further dedicated follow-up imaging is indicated, per ACR recommendation. US/US soft tiss head and/or neck IMPRESSION: Essentially unremarkable ultrasound examination of the soft tissues of the neck. No evidence of adenopathy. Electronically signed by: Germain Padron MD 04/03/2024 09:44 AM EDT Dictated By: Germain Padron Signed By: <Electronically signed by Germain Padron in OV> 04/03/24 0944 DD/ 1554 TD/TT: 04/02/24 1558 Aviation Technician Aircraft: Coding Level of Care Code Tele Est Pt Level 2 (81106) Complex EM visit Add On G2211 Diagnoses Lymphadenopathy R59.1 Tobacco dependence F17.200 Thyroid nodule E04.1 Assessment & Plan Assessment & Plan (1) Lymphadenopathy: Comment: LEFT AC ADENOPATHY, HARD FIXED Code(s): R59.1 - Generalized enlarged lymph nodes Category: Medical Plan: . (2) Tobacco dependence: Code(s): F17.200 - Nicotine dependence, unspecified, uncomplicated Category: Medical Plan: . (3) Thyroid nodule: Code(s): E04.1 - Nontoxic single thyroid nodule Category: Medical Plan: . Plan . Orders: Orders CT soft tissue neck wo IV con Today E04.1 - Nontoxic single thyroid nodule, F17.200 - Nicotine dependence, unspecified, uncomplicated, R59.1 - Generalized enlarged lymph nodes
== END 2024-04-23 16:41 | disposition home or self-care (01) ==
LOC: HO.HMCFM 12:15
PROVIDERS: PCP Nurse Practitioner Family; Visit Provider Nurse Practitioner Family
DX: R59.1 Generalized enlarged lymph nodes (principal); F17.200 Nicotine dependence, unspecified, uncomplicated; E04.1 Nontoxic single thyroid nodule

== ENCOUNTER → 2024-04-23 12:14 | Outpatient (BNVA) | payer OTHER, SELFPAY | PROVIDERS: PCP Nurse Practitioner Family; Visit Provider Nurse Practitioner Family ==

== ENCOUNTER 2024-05-23 07:35 | Outpatient (REF) | payer OTHER, SELFPAY ==
--- NOTE | ~2024-05-23 | CT_ITS ---
EXAMINATION: CT neck. CLINICAL INFORMATION: Generalized lymphadenopathy. COMPARISON: Ultrasound examination of neck on 04/02/2024.. TECHNIQUE: Multiple axial images were obtained from base of skull to the superior mediastinum following without intravenous contrast. Coronal and sagittal images were reconstructed from axial image data. This CT examination was performed using dose optimization techniques as appropriate, variously including the following: *Automated exposure control *Adjustment of mA and/or kV according to patient size (this includes techniques or standardized protocols for targeted exams where dose is matched to indication/reason for exam; i.e. extremities or head) *Use of iterative reconstruction technique DLP: 318 mGy-cm FINDINGS: PHARYNX: The visualized nasopharynx, oropharynx, hypopharynx are normal with no focal mass lesion. Visualization of the oral cavity is markedly limited by extensive metallic artifacts from dental implants. PHARYNGEAL STRUCTURES: Bilateral valleculae, epiglottis, piriform sinuses, vocal cords and arytenoids are normal. SALIVARY GLANDS: Bilateral parotid and submandibular salivary glands are symmetrical without focal lesion. LYMPH NODES: Inadequate evaluation of cervical or superior mediastinal lymph nodes. THYROID: No focal thyroid mass lesion is found. BONES: No fracture or dislocation. No focal bone lesion diagnostic of metastatic disease could be seen in the cervical spine and visualized skull base. LUNG APICES: Bilateral apical branching fibrotic scars are present. CT/CT soft tissue neck wo IV con IMPRESSION: 1. Inadequate evaluation of cervical lymph nodes without intravenous contrast. 2. No focal neck mass lesion could be found. Electronically signed by: Jaz Cuellar MD 05/23/2024 11:18 AM [facility] [place]
== END 2024-05-23 07:36 | disposition home or self-care (01) ==
LOC: HO.CT 07:35
PROVIDERS: PCP Nurse Practitioner Family; Visit Provider Nurse Practitioner Family
DX: R59.1 Generalized enlarged lymph nodes (principal); E04.1 Nontoxic single thyroid nodule; F17.200 Nicotine dependence, unspecified, uncomplicated
CPT/HCPCS: 70490

== ENCOUNTER 2024-06-21 08:40 | Outpatient (AMB) | payer OTHER, SELFPAY ==
--- NOTE | 2024-06-21 08:44 | MHC.OFFWIV ---
Intake Vital Signs 06/21/24 08:45 Weight 124 lb 8 oz BP 118/74 Blood Pressure Location Lt brachial Position Sitting Pulse 76 Pulse Source Pulse Oximeter Temp 98.2 F Temp Source Oral Pulse Oximetry (%) 99 Oxygen Delivery Method Room Air Intake Visit Reasons: EP chest, cold, cough, SOB Intake Note: Patient here for tick bite that happened on monday and noticed yesterday, she also would like to discuss possible sinus infection that started Monday. Patient Tobacco Use Status: Current everyday Tobacco user Allergies No Known Allergies Allergy (Verified 06/21/24 08:46) Do you need a note to return to daycare/school/sports/work: No HPI EP chest, cold, cough, SOB HPI Details This is a 69-year-old female patient who presents to the walk-in clinic today with two issues. She removed a tick from her right lower flank yesterday, 06/20/24, following a bite that likely occurred the previous morning while on a hike. 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 She has a small scab at that location at this time. She also reports upper respiratory congestion, shortness of breath, dry cough, fatigue for the last several days. History of COPD. Denies any fever or chills. Denies any GI symptoms. Has been taking Aleve and DayQuil/NyQuil with some mild relief. [facility] [place] Medical History Skin cancer Overactive bladder Hyperlipemia Anxiety Depression COPD (chronic obstructive pulmonary disease) Osteoporosis Surgical History H/O oral surgery Hx of colonoscopy Family History Mother High cholesterol Colon cancer Father Cardiovascular disease Sister Breast cancer Social History Household Members: None Both parents involved: No Caregiver staying overnight: No Housing: House Are you a primary vision care associate to a significant other at home: No Do you presently have visiting nurse or other home services: No 75 years or older and lives alone: No Alcohol intake: current Alcohol intake frequency: 0-2 drinks per day Alcohol type: wine Patient Tobacco Use Status: Current everyday Tobacco user Tobacco use type: Cigarette Cigarette Packs Per Day: 0.5 Cigarettes Per Day: 10.0 e-Cigarette/Vaping Use: Never Used service: No Current occupational status: employed Current occupation: [employer] Cognitive needs: No Hearing needs: Yes (has hearing aid) Vision needs: Yes (wear glasses) Review of Systems Const All systems reviewed & are unremarkable except as noted in HPI and below Physical Exam Vital Signs: Last Vital Signs Temp 98.2 F 06/21/24 08:45 Pulse 76 06/21/24 08:45 BP 118/74 06/21/24 08:45 Pulse Ox 99 06/21/24 08:45 Oxygen Delivery Method Room Air 06/21/24 08:45 Const General: cooperative and no acute distress Limitations: no limitations HEENT Head: Yes normal to inspection Ears: hearing grossly normal bilaterally General nose exam: Normal external nose present Face and sinus: Yes normal facial exam Mouth: Normal oral and palatal mucosa present Throat: Yes posterior oropharynx normal Neck Neck: Yes no lymphadenopathy Resp Effort & Inspection: normal respiratory effort and Actively coughing Quality: dry Auscultation: wheezes (mild upper inspiratory, otherwise clear) Cardio Jugular venous distension: no JVD Palpation: normal PMI Rate: regular rate Rhythm: regular rhythm Heart sounds: S1 normal heart sound present and S2 normal heart sound present Skin Other: small scabbed area right lower flank. No surrounding warmth or erythema. Extrem General: Yes capillary refill normal and Yes no clubbing, cyanosis or edema Psych Appearance: grossly normal Mental Status: mental status grossly normal Speech and movement: Normal speech and movement present Assessment & Plan Assessment & Plan (1) Tick bite of abdomen: Code(s): S30.861A - Insect bite (nonvenomous) of abdominal wall, initial encounter; W57.XXXA - Bitten or stung by nonvenomous insect and other nonvenomous arthropods, initial encounter Qualifiers: Encounter type: initial encounter Qualified Code(s): S30.861A - Insect bite (nonvenomous) of abdominal wall, initial encounter; W57.XXXA - Bitten or stung by nonvenomous insect and other nonvenomous arthropods, initial encounter Plan: Meets Lyme prophylaxis criteria. Will start on doxycycline. Advised to follow up with PCP at next scheduled visit to add on Lyme for routine labs. We reviewed indications, use, possible side effects of medication. I advised her to monitor area of tick bite and return to the clinic if she experiences any pain, rashes, redness/warmth of area. (2) Upper respiratory infection: Code(s): J06.9 - Acute upper respiratory infection, unspecified Qualifiers: URI type: unspecified URI Qualified Code(s): J06.9 - Acute upper respiratory infection, unspecified Plan: Likely viral URI. Patient declines viral testing at this time. Doxy as prescribed above may benefit her, and we discussed this. She can continue to take [id number] cold/flu medication and utilize inhalers as is beneficial. Also advised increased rest, hydration, healthy food/vitamin intake. If symptoms worsen or do not improve with time and conservative measures, she can return to the clinic for further evaluation. She verbalizes understanding and agrees to plan. Medications: New doxycycline hyclate Take one tablet twice a day for 7 days. 100 mg PO BID 7 days 14 tabs 0RF J06.9 - Acute upper respiratory infection, unspecified, S30.861A - Insect bite (nonvenomous) of abdominal wall, initial encounter, W57.XXXA - Bitten or stung by nonvenomous insect and other nonvenomous arthropods, initial encounter Coding Level of Care Code Est Pt Level 4 (63639) Diagnoses Tick bite of abdomen, initial encounter S30.861A; W57.XXXA Encounter type: initial encounter Upper respiratory tract infection, unspecified type J06.9 URI type: unspecified URI
[2024-06-21 08:45] VITALS: BP 118/74; PULSE 76; TEMP 36.8; O2SAT 99
== END 2024-06-21 09:17 | disposition home or self-care (01) ==
PROVIDERS: PCP Nurse Practitioner Family; Visit Provider Nurse Practitioner Family
DX: S30.861A Insect bite (nonvenomous) of abdominal wall, initial encounter (principal); W57.XXXA Bitten or stung by nonvenomous insect and other nonvenomous arthropods, initial encounter; J06.9 Acute upper respiratory infection, unspecified

== ENCOUNTER → 2024-06-21 08:40 | Outpatient (BNVA) | payer OTHER, SELFPAY | PROVIDERS: PCP Nurse Practitioner Family; Visit Provider Nurse Practitioner Family ==

== ENCOUNTER 2024-06-26 10:11 | Outpatient (REF) | payer OTHER, SELFPAY ==
[2024-06-26 15:26] LABS: Influenza A PCR POSITIVE (Negative); Influenza B PCR NEGATIVE (Negative); Resp Syncy Virus RNA Qual PCR NEGATIVE (Negative); SARS COV2 PCR INHOUSE NEGATIVE (Negative)
== END 2024-06-26 10:12 | disposition home or self-care (01) ==
LOC: HO.LNP 10:11
PROVIDERS: PCP Nurse Practitioner Family; Visit Provider Nurse Practitioner Family
DX: J10.1 Influenza due to other identified influenza virus with other respiratory manifestations (principal); S20.461D Insect bite (nonvenomous) of right back wall of thorax, subsequent encounter; W57.XXXD Bitten or stung by nonvenomous insect and other nonvenomous arthropods, subsequent encounter; R21 Rash and other nonspecific skin eruption; R68.89 Other general symptoms and signs
CPT/HCPCS: 0241U

== ENCOUNTER → 2024-06-26 10:11 | Outpatient (AMB) | payer OTHER, SELFPAY ==
--- NOTE | 2024-06-26 10:15 | AM.OFFWIN_ITS ---
Intake Vital Signs 3 06/26/24 10:25 Height 5 ft 6 in Weight 123 lb BMI 19.9 BP 132/72 Blood Pressure Location Rt brachial Position Sitting Respiration 13 Pulse 74 Pulse Source Pulse Oximeter Pulse Oximetry (%) 98 Oxygen Delivery Method Room Air Intake Visit Reasons: re evaluate tick bite Intake Note: Patient got a tick bite on antonio boateng and she removed the next day when she noticed it, on the right lower side of the back, patient was seen in [facility] in [place] was prescribed doxycycline which she got a bad allergic reaction to it and she stop it and shes been taking benadryl in the mean time. Patient Tobacco Use Status: Current everyday Tobacco user General House Worker Required: No Allergies doxycycline Allergy (Severe, Verified 06/26/24 10:34) Itching Medication List - Last Reconciled 06/26/24 by Shirley Kemp, OSMAN- atorvastatin 40 mg PO BEDTIME bupropion HCl SR (Wellbutrin SR) 150 mg PO BID calcium-mag oxide-vitamin D3 250-125-200 mg-mg-unit 2 caps PO cholecalciferol (vitamin D3) (Vitamin D3) 50 mcg PO DAILY escitalopram oxalate 15 mg (1.5 x 10 mg) PO DAILY 90 days omega-3 fatty acids-fish oil 684-1,200 mg 1 cap PO DAILY Do you need a note to return to daycare/school/sports/work: No HPI HPI Comments 2 History of Present Illness0 Details 69 y/o F with sigmoid diverticulosis, in ternal hemorrhoids, hx of tubular adenoma, current smoker, CAD (noted on CT of lung 08/15/23), hyperlidipemia, Lower degenerative thoracic disc disease and sclerotic vertebral endplate arthritis, Overactive bladder, MDD, EZEQUIEL, COPD, SCC Skin cancer, osteopenia Here today to follow up on a tick bite. She was seen at the walk-in on 06/21/2024. This note was reviewed. At that time not only did she have the tick bite that was present for more than 3 days, she also had URI symptoms. She was prophylactically prescribed doxycycline to treat both. The patient reports that she took the medication as directed. Soon after she developed an itchy rash on her back and abdomen. She would take Benadryl x1 yesterday and this seemed to help the itching. She has since stopped taking the doxycycline assuming this is an allergic reaction. She has never taken doxycycline before. She continues to have symptoms of upper respiratory symptoms to include runny nose, cough but mostly feeling fatigued. She reports that she is napping several times per day. She travel recently to see her family on an airplane. Exam General: Well developed, well nourished, in no acute distress. Appears stated age. Head: Normocephalic, atraumatic. Eyes: Pupils are equal, round and reactive to light and accommodation. Conjunctivae are clear. Vision grossly normal. Ears: TMs clear AU, EACS WNL Nose: Patent, without discharge. Mouth: There are no ulcers or lesions noted. No inflammation, no post nasal drip, no plaques nor exudates. Neck: Supple, no thyromegaly. Left AC is a fixed, hard, immobile lymphnode about fci down the neck. Overlying skin is intact. Lungs: Clear to auscultation bilaterally. No rales, rhonchi or wheeze noted. Good air flow in all hemphill. Heart: Regular rate and rhythm. No murmurs, click, rubs or gallops are noted. Skin: see below Plan: Advised to stay off of doxycycline presuming an allergic reaction. I have added this to her allergy list. I have advised for her to follow up with the pharmacy and also add this to her allergy list they are. A viral swab was obtained today to check for flu COVID and RSV. While waiting for the results, I will prescribe a short course of prednisone to help with her URI symptoms along with the rash. She is active with Dermatology and can follow up with Dermatology should this rash not improve with the current treatment. Viral swab came back positive for influenza A. Patient was called by myself at 15:35 with the results. The plan will be to start Tamiflu 1 tab p.o. b.i.d. x5 days. Out of work until she completes the therapy. Education provided. This note is constructed using voice recognition software. While every effort has been made to ensure accuracy in pathology laboratory technologist, still errors may have been included Sometimes, these errors may affect the content or meaning of the given sentence . Total time spent caring for the patient today was 30 minutes. This includes time spent before the visit reviewing the chart, time spent during the visit, and time spent after the visit on documentation [facility] Medical History Skin cancer Overactive bladder Hyperlipemia Anxiety Depression COPD (chronic obstructive pulmonary disease) Osteoporosis Surgical History H/O oral surgery Hx of colonoscopy Family History Mother High cholesterol Colon cancer Father Cardiovascular disease Sister Breast cancer Social History Household Members: None Both parents involved: No Caregiver staying overnight: No Housing: House Are you a primary personal care service provider to a significant other at home: No Do you presently have visiting nurse or other home services: No 75 years or older and lives alone: No Alcohol intake: current Alcohol intake frequency: 0-2 drinks per day Alcohol type: wine Patient Tobacco Use Status: Current everyday Tobacco user Tobacco use type: Cigarette Cigarette Packs Per Day: 0.5 Cigarettes Per Day: 10.0 e-Cigarette/Vaping Use: Never Used service: No Current occupational status: employed Current occupation: [employer] Cognitive needs: No Hearing needs: Yes (has hearing aid) Vision needs: Yes (wear glasses) Physical Exam Vital Signs: Last Vital Signs Pulse 74 06/26/24 10:25 Resp 13 06/26/24 10:25 BP 132/72 06/26/24 10:25 Pulse Ox 98 06/26/24 10:25 Oxygen Delivery Method Room Air 06/26/24 10:25 BMI result Body Mass Index 19.9 Results Reviewed Results Reviewed: RUN: 06/26/24 1532 PAGE 1 [facility] [address] [place] [id number] Joggle Press Operator: Gordy Carrera M.D. Specimen Inquiry L Name: Sarah Alba Age/Sex: 69/F : 1955 Unit#: [id number] Attend Dr: Shirley KempP- Re06/26/24 Status: REG REF Location: [facility] isch: SPEC : [id number] ADALI: 06/26/24 STATUS: COMP REQ : [id number] RECD: 06/26/24 [facility] DR: Shirley Kemp [facility] COMP: 06/26/24 ENTERED: 06/26/24 [facility] DR: ORDERED: SARS/FLU/RSV Test Result Flag Reference Influenza A PCR POSITIVE A Negative Influenza B PCR NEGATIVE Negative RSV RNA QualPCR NEGATIVE Negative SARSCOV2 RT-PCR NEGATIVE Negative All test results must be correlated with clinical findings. Negative results do not preclude SARS-CoV2, influenza A virus, influenza B virus and/or RSV infection and should not be used as the sole basis for treatment or other patient management decisions. Negative results must be combined with clinical observations, patient history, and epidemiological information. This test has not been evaluated for monitoring treatment of infection. This test has been authorized by the FDA under an Emergency Use Authorization (EUA) for use by authorized laboratories. Testing performed on the [employer] GeneXpert utilizing real-time RT-PCR. All SARS CoV2 and positive influenza A/B results are reported to [facility]. END OF REPORT Assessment & Plan Assessment & Plan (1) Influenza A: Code(s): J10.1 - Influenza due to other identified influenza virus with other respiratory manifestations (2) Tick bite: Code(s): W57.XXXA - Bitten or stung by nonvenomous insect and other nonvenomous arthropods, initial encounter Qualifiers: Encounter type: subsequent encounter Site of tick bite: thoracic wall Front or back of thoracic wall: back Thoracic wall location detail: right Q ualified Code(s): S20.461D - Insect bite (nonvenomous) of right back wall of thorax, subsequent encounter; W57.XXXD - Bitten or stung by nonvenomous insect and other nonvenomous arthropods, subsequent encounter (3) Flu-like symptoms: Code(s): R68.89 - Other general symptoms and signs (4) Skin eruption: Code(s): R21 - Rash and other nonspecific skin eruption Plan . Orders: Orders 2 SARS-CoV2/FLU/RSV Today R68.89 - Other general symptoms and signs Medications: New 2 oseltamivir (Tamiflu) 75 mg PO Q12H 5 days 10 caps 0RF prednisone 20 mg PO DAILY 5 tabs 0RF Patient Instructions: Influenza (flu) is an infection in the lungs and breathing passages. It is caused by the influenza virus. There are different strains, or types, of the flu virus from year to year. Unlike the common cold, the flu comes on suddenly and the symptoms can be more severe. These symptoms include a cough, congestion, fever, chills, fatigue, aches, and pains. These symptoms may last for a few weeks. Although the flu can make you feel very sick, it usually doesn't cause serious health problems. Home treatment is usually all you need for flu symptoms. But your doctor may prescribe antiviral medicine to prevent other health problems, such as pneumonia, from developing. The risk of other health problems from the flu is highest for young children (under 5), older adults (over 65), women, people with long-term health conditions, people who live in nursing homes or long-term care centres, and indigenous peoples. How can you care for yourself at home? Get plenty of rest. Drink plenty of fluids. If you have to limit fluids because of a health problem, talk with your doctor before you increase the amount of fluids you drink. Take an wvhc-syn-xatplpi pain medicine if needed, such as acetaminophen (Tylenol), ibuprofen (Advil, Motrin), or naproxen (Aleve), to relieve fever, headache, and muscle aches. Read and follow all instructions on the label. No one younger than 18 should take aspirin. It has been linked to Sushil syndrome, a serious illness. Take any prescribed medicine exactly as directed. Do not smoke. Smoking can make the flu worse. If you need help quitting, talk to your doctor about stop-smoking programs and medicines. These can increase your chances of quitting for good. If the skin around your nose and lips becomes sore, put some petroleum jelly (such as Vaseline) on the area. To ease coughing: Suck on cough drops or plain, hard candy. Try an pwdc-yah-mzfuwwf cough or cold medicine. Read and follow all instructions on the label. Raise your head at night with an extra pillow. This may help you rest if coughing keeps you awake. To avoid spreading the flu Wash your hands regularly, and keep your hands away from your face. Stay home from school, work, and other public places until you are feeling better and your fever has been gone for at least 24 hours. The fever needs to have gone away on its own without the help of medicine. Ask people living with you to talk to their doctors about preventing the flu. They may get antiviral medicine to keep from getting the flu from you. To prevent the flu in the future, get the flu vaccine every fall. Encourage people living with you to get the vaccine. Cover your mouth when you cough or sneeze. If you can, cough or sneeze into the bend of your elbow, not your hands. When should you call for help? Call 911 anytime you think you may need emergency care. For example, call if: You have severe trouble breathing. You have a seizure. Call your doctor or nurse advice line now or seek immediate medical care if: You have trouble breathing. You have a fever with a stiff neck or a severe headache. You have pain or pressure in your chest or belly. You have a fever or cough that returns after getting better. You feel very sleepy, dizzy, or confused. You are not urinating. You have severe muscle pain. You have severe weakness, or you are unsteady. You have medical conditions that are getting worse Watch closely for changes in your health, and be sure to contact your doctor or nurse advice line if: You do not get better as expected. You are having a problem with your medicine. Coding Level of Care Code Est Pt Level 4 (09737) Diagnoses Influenza A J10.1 Tick bite of right back wall of thorax, subsequent encounter S20.461D; W57.XXXD Encounter type: subsequent encounter Site of tick bite: thoracic wall Front or back of thoracic wall: back Thoracic wall location detail: right Flu-like symptoms R68.89 Skin eruption R21
[2024-06-26 10:25] VITALS: BP 132/72; PULSE 74; RESP 13; O2SAT 98; BMI 19.9
== END ==
LOC: HO.HMCWIW 10:11
PROVIDERS: PCP Nurse Practitioner Family; Visit Provider Nurse Practitioner Family
DX: J10.1 Influenza due to other identified influenza virus with other respiratory manifestations (principal); S20.461D Insect bite (nonvenomous) of right back wall of thorax, subsequent encounter; W57.XXXD Bitten or stung by nonvenomous insect and other nonvenomous arthropods, subsequent encounter; R68.89 Other general symptoms and signs; R21 Rash and other nonspecific skin eruption

== ENCOUNTER 2024-07-12 10:29 | Outpatient (REF) | payer OTHER, SELFPAY | END 2024-07-12 10:30 | disposition home or self-care (01) | LOC: HO.MAMMO 10:29 | PROVIDERS: Visit Provider Nurse Practitioner Family | DX: Z12.31 Encounter for screening mammogram for malignant neoplasm of breast (principal) | CPT/HCPCS: 77063; 77067 ==

== ENCOUNTER → 2024-07-12 10:30 | Outpatient (BNV) | payer OTHER, SELFPAY | PROVIDERS: Visit Provider Internal Medicine | DX: Z12.31 Encounter for screening mammogram for malignant neoplasm of breast (principal) | CPT/HCPCS: 77063; 77067 ==

== ENCOUNTER 2024-08-26 14:32 | Outpatient (REF) | payer OTHER, SELFPAY ==
--- NOTE | ~2024-08-26 | XR_ITS ---
EXAMINATION: XR HAND AND WRIST COMPLETE LEFT HISTORY: S66.912A - Strain of unspecified muscle, fascia and tendon at wrist and ... COMPARISON: There are no prior studies available for comparison. FINDINGS: Three views of the left hand are submitted. Osseous mineralization is normal. There is slight irregularity of the dorsal aspect of the distal radius on the lateral view. The bones are otherwise unremarkable in appearance. The joint spaces are preserved. The soft tissues are unremarkable. XR/XR hand wrist LT IMPRESSION: Slight irregularity of the dorsal aspect of the distal radius. This could represent a nondisplaced fracture. Clinical correlation is recommended. Electronically signed by: Luis Antonio Trammell MD 08/26/2024 03:34 PM EDT
== END 2024-08-26 14:33 | disposition home or self-care (01) ==
LOC: HO.HMGCX 14:32
PROVIDERS: PCP Nurse Practitioner Family; Visit Provider Nurse Practitioner Family
DX: S66.912A Strain of unspecified muscle, fascia and tendon at wrist and hand level, left hand, initial encounter (principal)
CPT/HCPCS: 73110; 73130

== ENCOUNTER 2024-08-26 14:32 | Outpatient (AMB) | payer OTHER, SELFPAY ==
[2024-08-26 14:42] VITALS: BP 110/64; PULSE 60; O2SAT 98
--- NOTE | 2024-08-26 14:42 | AM.OFFWIN_ITS ---
Intake Vital Signs 3 08/26/24 14:42 Weight 126 lb BP 110/64 Blood Pressure Location Rt brachial Position Sitting Pulse 60 Pulse Source Pulse Oximeter Pulse Oximetry (%) 98 Oxygen Delivery Method Room Air Intake Visit Reasons: EP LT wrist pain Intake Note: Patient here for left wrist pain after a injury while playing pickleball. Patient Tobacco Use Status: Current everyday Tobacco user Allergies doxycycline Allergy (Severe, Verified 08/26/24 14:43) Itching Do you need a note to return to daycare/school/sports/work: No HPI HPI Comments 2 History of Present Illness0 Details 69 y/o female patient who presents to [facility] walk in clinic with c/o left wrist injury after playing Pickle Ball. Reports that yesterday and today when playing Pickleball, she fell and landed on her buttocks, but used her left hand/wrist to stop the Fall. Reports swelling and tenderness. Reports Limited ROM due to pain. [facility] Medical History (Updated 08/26/24 @ 15:09 by Justine Hanks NP) Strain of left wrist Skin cancer Overactive bladder Hyperlipemia Anxiety Depression COPD (chronic obstructive pulmonary disease) Osteoporosis Surgical History H/O oral surgery Hx of colonoscopy Family History Mother High cholesterol Colon cancer Father Cardiovascular disease Sister Breast cancer Social History Household Members: None Both parents involved: No Caregiver staying overnight: No Housing: House Are you a primary manager critical care to a significant other at home: No Do you presently have visiting nurse or other home services: No 75 years or older and lives alone: No Alcohol intake: current Alcohol intake frequency: 0-2 drinks per day Alcohol type: wine Patient Tobacco Use Status: Current everyday Tobacco user Tobacco use type: Cigarette Cigarette Packs Per Day: 0.5 Cigarettes Per Day: 10.0 e-Cigarette/Vaping Use: Never Used service: No Current occupational status: employed Current occupation: [employer] Cognitive needs: No Hearing needs: Yes (has hearing aid) Vision needs: Yes (wear glasses) Review of Systems Const All systems reviewed & are unremarkable except as noted in HPI and below Physical Exam Vital Signs: Last Vital Signs Pulse 60 08/26/24 14:42 BP 110/64 08/26/24 14:42 Pulse Ox 98 08/26/24 14:42 Oxygen Delivery Method Room Air 08/26/24 14:42 Const General: cooperative and no acute distress Orientation/consciousness: patient oriented x3 Neuro General: patient oriented x3 Extrem General: Yes capillary refill normal Left upper extremity: wrist (limited ROM due to pain.) and hand Details: normal capillary refill, tenderness Location: of the dorsal hand Location: distally, over the radial aspect, over the ulnar aspect, over the 3rd metacarpal, over the 4th metacarpal and over the 5th metacarpal, normal ROM of fingers and swelling Location: of the dorsal hand Location: distally and over the ulnar aspect Hand/finger images: 2 1. Small bump, some mild swelling TTP. Psych Speech and movement: Normal speech and movement present Assessment & Plan Assessment & Plan (1) Strain of left wrist: Code(s): S66.912A - Strain of unspecified muscle, fascia and tendon at wrist and hand level, left hand, initial encounter Qualifiers: Encounter type: initial encounter Qualified Code(s): S66.912A - Strain of unspecified muscle, fascia and tendon at wrist and hand level, left hand, initial encounter Plan: Ordered Xray Wrapped with Gigi Bandage Ice/Hot NSAIDs for pain relief Rest andraise Joint. Orders: Orders 2 XR hand wrist LT Today S66.912A - Strain of unspecified muscle, fascia and tendon at wrist and hand level, left hand, initial encounter Coding Level of Care Code Est Pt Level 4 (48808) Diagnoses Strain of left wrist, initial encounter S66.912A Encounter type: initial encounter Time Spent (min) 20
== END 2024-08-26 15:38 | disposition home or self-care (01) ==
PROVIDERS: Visit Provider Nurse Practitioner Family
DX: S66.912A Strain of unspecified muscle, fascia and tendon at wrist and hand level, left hand, initial encounter (principal)

== ENCOUNTER → 2024-08-26 15:11 | Outpatient (BNV) | payer OTHER, SELFPAY | PROVIDERS: PCP Nurse Practitioner Family; Visit Provider Radiology Diagnostic Radiology | DX: S66.912A Strain of unspecified muscle, fascia and tendon at wrist and hand level, left hand, initial encounter (principal) | CPT/HCPCS: 73110; 73130 ==

== ENCOUNTER 2024-09-23 12:23 | Outpatient (AMB) | payer OTHER, SELFPAY ==
--- NOTE | 2024-09-23 12:29 | MHC.PC.OV ---
Vital Signs 09/23/24 12:33 Height 5 ft 6 in Weight 128 lb BMI 20.7 BP 98/66 Blood Pressure Location Rt brachial Position Sitting Respiration 12 Pulse 65 Pulse Source Pulse Oximeter Temp 97.4 F Temp Source Oral Pulse Oximetry (%) 98 Oxygen Delivery Method Room Air Intake Visit Reasons: 6 MO 30 MIN ROUTINE F/U Intake Note: 6 month routine follow up Char Filter Tank Tender Required: No Allergies doxycycline Allergy (Severe, Verified 09/23/24 12:54) Itching Medication List - Last Reconciled 09/23/24 by Shirley Kemp, HEAVY LIFT RIGGER- atorvastatin 40 mg PO BEDTIME bupropion HCl SR (Wellbutrin SR) 150 mg PO BID calcium-mag oxide-vitamin D3 250-125-200 mg-mg-unit 2 caps PO cholecalciferol (vitamin D3) (Vitamin D3) 50 mcg PO DAILY escitalopram oxalate 15 mg (1.5 x 10 mg) PO DAILY 90 days omega-3 fatty acids-fish oil 684-1,200 mg 1 cap PO DAILY Tobacco use date assessed: 09/23/24 Fall risk assessment: 1 Fall in past year Last assessed Fall Risk: 09/23/24 Dental Screening Dental Screen Date: 09/23/24 Did you have a dental visit in the last 12 months?: Yes Did you have a dental problem in the last 6 months where you did not have access to dental care?: No Was dental information given to patient?: Patient has dentist HPI HPI Comments History of Present Illness Details 69 y/o F with sigmoid diverticulosis, internal hemorrhoids, hx of tubular adenoma, current smoker, CAD (noted on CT of lung 08/15/23), hyperlidipemia, Lower degenerative thoracic disc disease and sclerotic vertebral endplate arthritis, Overactive bladder, MDD, EZEQUIEL, COPD, SCC Skin cancer, osteopenia s/p R eye retinal tear w/ laser repair 2023 Social: works at [employer] [place] [employer] and loves playing [employer] Ball; , 2 daughters, 1 son. Family hx: Mom with colon ca (dx in 80's) , Sister w/ breast ca, Skin cancer Health Maintenance: ? Colon 2019 Dr Strong: history of tubular adenomas,recommend a followup colonoscopy in 5 years for further screening. ? Mammo 07/04/23 ? DEXA 1/26/24 Osteopenia ? PAP 2021, reports no abnormal,no personal or family hx of UPHOLSTERY HANDLER cancer. Aged out. ? Tdap will give today; Declined Flu. Declined PCV. Declined Shingles. Lung cancer screening active in program at [facility] Specialists: BHAVESH Schuster q6mo Counseling in the past; Prescriber [facility] in the past. Optho Retinal specialist - The patient is a 69-year-old female presenting for follow-up of her chronic conditions. - She sustained a L wrist fracture one month ago due to a fall. The fracture is being managed conservatively with a cast. Expected removal of the cast is soon, with transition to a temporary splint. - The patient was previously diagnosed with hyperlipidemia and currently continues taking atorvastatin 20 mg daily despite an adjusted recommendation for 40 mg due to irregular adherence to her previous dosage. Due for repeat labs, did not get done yet. - She had experienced Influenza type A in June following travel, with a complete recovery reported. - The patient actively smokes and finds it challenging to decrease cigarette use despite a generally reduced frequency during work hours. - Upcoming senior care plans in late September, with current work absence potentially extending to senior care timing due to ongoing recovery. Plan Lipid profile. Adjust statin to goal. Only taking 20mg at this time. Smoking cessation FU with Ortho for L wrist fracture RTO in 6 months for Welcome to Medicare Visit. Sooner PRN Total time spent caring for the patient today was 40 minutes. This includes time spent before the visit reviewing the chart, time spent during the visit, and time spent after the visit on documentation, reviewing laboratory results, diagnostic imaging, medications, performing a medically necessary evaluation, counseling on diagnoses, care coordination, ordering appropriate tests, ordering appropriate medications, review of tests performed by other providers, reporting test results with the patient, communication with other healthcare providers. [facility] Medical History (Updated 09/23/24 @ 18:01 by OSMAN Clement-) Anxiety COPD (chronic obstructive pulmonary disease) Depression Hyperlipemia Nondisplaced fracture of distal end of radius Osteoporosis Overactive bladder Skin cancer Strain of left wrist Surgical History H/O oral surgery Hx of colonoscopy Family History Mother High cholesterol Colon cancer Father Cardiovascular disease Sister Breast cancer Social History Household Members: None Both parents involved: No Caregiver staying overnight: No Housing: House Are you a primary ambulatory care nurse to a significant other at home: No Do you presently have visiting nurse or other home services: No 75 years or older and lives alone: No Alcohol intake: current Alcohol intake frequency: 0-2 drinks per day Alcohol type: wine Patient Tobacco Use Status: Current everyday Tobacco user Tobacco use type: Cigarette Cigarette Packs Per Day: 0.5 Cigarettes Per Day: 10.0 e-Cigarette/Vaping Use: Never Used service: No Current occupational status: employed Current occupation: [employer] Cognitive needs: No Hearing needs: Yes (has hearing aid) Vision needs: Yes (wear glasses) Questionnaire PHQ-9 Over the last 2 weeks, how often have you been bothered by any of the following problems? 1. Little interest or pleasure in doing things: not at all 2. Feeling down, depressed, or hopeless: not at all 3. Trouble falling or staying asleep, or sleeping too much: not at all 4. Feeling tired or having little energy: not at all 5. Poor appetite or overeating: not at all 6. Feeling bad about yourself - or that you are a failure or have let yourself or your family down: not at all 7. Trouble concentrating on things, such as reading the newspaper or watching television: not at all 8. Moving or speaking so slowly that other people could have noticed. Or the opposite - being so fidgety or restless that you have been moving around a lot more than usual: not at all 9. Thoughts that you would be better off or of hurting yourself in some way: not at all Total score: 0 Depression Screening Interpretation: Negative Depression Screening Done: Yes 26166 - PHQ-9 Billing: Yes Source: Developed by Drs. Luis Antonio Cota, Marlyn Stockton, August Díaz and colleagues, with an educational moy from [employer]. Thrive Questionnaire Date Thrive assessed: 09/23/24 I am a: Patient What is your living situation today?: I have a steady place to live Within the past 12 months, did the food you bought not last and you didn't have the money to get more?: Never true Within the past 12 months, did you worry whether your food would run out before you got money to buy more?: Never true Do you have trouble paying for medicines?: No Do you have trouble getting transportation to medical appointments?: No Do you have trouble paying your heating and electricity bill?: No Do you have trouble taking care of your child, family member or friend?: No Do you have trouble with day-to-day activities such as bathing, preparing meals, shopping, managing finances, etc.?: No Are you currently unemployed and looking for a job?: No Are you interested in more education?: No Please select the resources that you would like help with: None Currently or been in a relationship where the following occur: No concerns reported THRIVE Score: 0 AUDIT C Alcohol Use Questionnaire (AUDIT-C) 1. How often do you have a drink containing alcohol?: 4 or more times a week 2. How many drinks containing alcohol do you have on a typical day when you are drinking?: 1 or 2 3. How often do you have six or more drinks on one occasion?: Never Total Score: 4 Score Reviewed/Action Taken: Yes EZEQUIEL-7 AMB Questionnaire EZEQUIEL-7 Date EZEQUIEL - 7 assessed: 09/23/24 Feeling nervous, anxious, or on edge: 1 = Several days Not being able to stop or control worryin = Several days Worrying too much about different things: 1 = Several days Trouble relaxin = Several days Being so restless that it is hard to sit still: 1 = Several days Becoming easily annoyed or irritable: 1 = Several days Feeling afraid as if something awful might happen: 0 = Not at all Total EZEQUIEL-7 score (0-4 normal; 5-9 mild; 10-14 moderate; 15-21 severe): 6 Source: Developed by Drs. Luis Antonio Cota, Marlyn Stockton, August Díaz and colleagues, with an educational moy from [employer]. EZEQUIEL-7 Assessment Billing EZEQUIEL-7 Assessment Tool: EZEQUIEL-7 Assessment 06418 Physical exam (Primary Care) Vital Signs: Last Vital Signs Temp 97.4 F 09/23/24 12:33 Pulse 65 09/23/24 12:33 Resp 12 09/23/24 12:33 BP 98/66 09/23/24 12:33 Pulse Ox 98 09/23/24 12:33 Oxygen Delivery Method Room Air 09/23/24 12:33 BMI result Body Mass Index 20.7 Tobacco/Smoking Status: Tobacco use Status Tobacco use date assessed 09/23/24 09/23/24 12:32 Patient Tobacco Use Status Current everyday Tobacco 09/23/24 12:32 Tobacco use type Cigarette 09/23/24 12:32 e-Cigarette/Vaping Use Never Used 09/23/24 12:32 Are you ready to quit: No Tobacco cessation counseling provided: Yes Items discussed: Nicotine replacement, QuitWorks and Other Relapse Prevention: discussed the importance of a supportive environment, discussed extending NRT, discussed negative mood or depression after quitting, weight gain after smoking is common and discussed dietary, exercise and/or lifestyle changes Number of minutes spent counselin CPT code: 43962 - 4-10 Minutes PHQ-9: PHQ-9 Score PHQ-9: Total score 0 09/23/24 12:43 Depression Screening Interpretation: Negative Thrive Assessment: Date of Thrive Assessment Date Thrive assessed 09/23/24 09/23/24 12:32 Currently or been in a relationship where the following occur: No concerns reported Const Other: General: Well developed, well nourished, in no acute distress. Appears stated age. Head: Normocephalic, atraumatic. Eyes: Pupils are equal, round and reactive to light and accommodation. Conjunctivae are clear. Vision grossly normal. Neck: Supple, no thyromegaly. Left AC is a fixed, hard, immobile lymphnode about mcc down the neck. Overlying skin is intact. Unchanged. US and CT scan re-assuring. Lungs: Clear to auscultation bilaterally. No rales, rhonchi or wheeze noted. Good air flow in all hemphill. Heart: Regular rate and rhythm. No murmurs, click, rubs or gallops are noted. Pulses: Peripheral pulses are equal and palpable bilaterally. Hairless, decreased PP bilat, skin intact. Extremities: No clubbing, cyanosis nor edema is noted. Neurologic: Gait and station normal. Cranial Nerves 2-12 intact. Motor strength grossly symmetrical and intact. No sensory loss. Balance normal. Skin: No rashes, ulcers noted. Turgor is good. Skin color is good. Hair and nails are without abnormalities. Psych: Normal eye contact, affect and mood appropriate, and normal interactions. Patient is alert and appropriate to context. Coding Level of Care Code Est Pt Level 5 (34621) Complex EM visit Add On G2211 Diagnoses Coronary artery disease involving anvik coronary artery of anvik heart without angina pectoris I25.10 Associated angina: without angina Coronary Disease-Associated Artery/Lesion type: anvik artery Ruby vs. transplanted heart: anvik heart Simple chronic bronchitis J41.0 COPD type: chronic bronchitis Chronic bronchitis type: simple EZEQUIEL (generalized anxiety disorder) F41.1 Mixed hyperlipidemia E78.2 Hyperlipidemia type: mixed hyperlipidemia Mild episode of recurrent major depressive disorder F33.0 Major depression episode severity: mild Osteopenia of multiple sites M85.89 Osteopenia location: multiple sites PVD (peripheral vascular disease) I73.9 Tobacco dependence F17.200 Nondisplaced fracture of distal end of radius S52.509A Additional Codes EZEQUIEL-7 Assessment Billing - EZEQUIEL-7 Assessment Tool: EZEQUIEL-7 Assessment 82776 ([id number]) PHQ-9 - 52686 - PHQ-9 Billing: Yes ([id number]) Vital Signs *Quality* - CPT code: 89825 - 4-10 Minutes ([id number]) Assessment & Plan Assessment & Plan (1) CAD (coronary artery disease): Comment: (noted on CT of lung 08/15/23) Currently on statin, LDL goal less than 70, smoking cessation Code(s): I25.10 - Atherosclerotic heart disease of anvik coronary artery without angina pectoris Category: Medical Qualifiers: Associated angina: without angina Coronary Disease-Associated Artery/Lesion type: anvik artery Ruby vs. transplanted heart: anvik heart Qualified Code(s): I25.10 - Atherosclerotic heart disease of anvik coronary artery without angina pectoris (2) COPD (chronic obstructive pulmonary disease): Comment: Without exacerbation, managed without inhalers, active with lung cancer screening program, smoking cessation encouraged Code(s): J44.9 - Chronic obstructive pulmonary disease, unspecified Category: Medical Qualifiers: COPD type: chronic bronchitis Chronic bronchitis type: simple Qualified Code(s): J41.0 - Simple chronic bronchitis (3) EZEQUIEL (generalized anxiety disorder): Code(s): F41.1 - Generalized anxiety disorder Category: Medical (4) Hyperlipemia: Code(s): E78.5 - Hyperlipidemia, unspecified Category: Medical Qualifiers: Hyperlipidemia type: mixed hyperlipidemia Qualified Code(s): E78.2 - Mixed hyperlipidemia (5) MDD (major depressive disorder), recurrent episode: Code(s): F33.9 - Major depressive disorder, recurrent, unspecified Category: Medical Qualifiers: Major depression episode severity: mild Qualified Code(s): F33.0 - Major depressive disorder, recurrent, mild (6) Osteopenia: Comment: On calcium and vitamin-D Code(s): M85.80 - Other specified disorders of bone density and structure, unspecified site Category: Medical Qualifiers: Osteopenia location: multiple sites Qualified Code(s): M85.89 - Other specified disorders of bone density and structure, multiple sites (7) PVD (peripheral vascular disease): Comment: Based on clinical exam, on statin, monitor skin integrity Code(s): I73.9 - Peripheral vascular disease, unspecified Category: Medical (8) Tobacco dependence: Code(s): F17.200 - Nicotine dependence, unspecified, uncomplicated Category: Medical (9) Nondisplaced fracture of distal end of radius: Comment: L Code(s): S52.509A - Unspecified fracture of the lower end of unspecified radius, initial encounter for closed fracture Category: Medical Plan . Orders: Orders Ferritin 6 Months E78.2 - Mixed hyperlipidemia, I25.10 - Atherosclerotic heart disease of anvik coronary artery without angina pectoris, I73.9 - Peripheral vascular disease, unspecified Vitamin B12 and Folate 6 Months E78.2 - Mixed hyperlipidemia, I25.10 - Atherosclerotic heart disease of anvik coronary artery without angina pectoris, I73.9 - Peripheral vascular disease, unspecified Comprehensive Met. Panel 6 Months E78.2 - Mixed hyperlipidemia, I25.10 - Atherosclerotic heart disease of anvik coronary artery without angina pectoris, I73.9 - Peripheral vascular disease, unspecified Hemoglobin A1c 6 Months E78.2 - Mixed hyperlipidemia, I25.10 - Atherosclerotic heart disease of anvik coronary artery without angina pectoris, I73.9 - Peripheral vascular disease, unspecified Lipid Panel 6 Months E78.2 - Mixed hyperlipidemia, I25.10 - Atherosclerotic heart disease of anvik coronary artery without angina pectoris, I73.9 - Peripheral vascular disease, unspecified Microalbumin, Random (w Creat) 6 Months E78.2 - Mixed hyperlipidemia, I25.10 - Atherosclerotic heart disease of anvik coronary artery without angina pectoris, I73.9 - Peripheral vascular disease, unspecified TSH reflex Free T4 6 Months E78.2 - Mixed hyperlipidemia, I25.10 - Atherosclerotic heart disease of anvik coronary artery without angina pectoris, I73.9 - Peripheral vascular disease, unspecified Vitamin D 25-OH Total 6 Months E78.2 - Mixed hyperlipidemia, I25.10 - Atherosclerotic heart disease of anvik coronary artery without angina pectoris, I73.9 - Peripheral vascular disease, unspecified
[2024-09-23 12:33] VITALS: BP 98/66; PULSE 65; RESP 12; TEMP 36.3; O2SAT 98; BMI 20.7
== END 2024-09-23 13:11 | disposition home or self-care (01) ==
LOC: HO.HMCFM 12:24
PROVIDERS: PCP Nurse Practitioner Family; Visit Provider Nurse Practitioner Family
DX: I25.10 Atherosclerotic heart disease of native coronary artery without angina pectoris (principal); J41.0 Simple chronic bronchitis; F41.1 Generalized anxiety disorder; E78.2 Mixed hyperlipidemia; F33.0 Major depressive disorder, recurrent, mild; M85.89 Other specified disorders of bone density and structure, multiple sites; I73.9 Peripheral vascular disease, unspecified; F17.200 Nicotine dependence, unspecified, uncomplicated; S52.509A Unspecified fracture of the lower end of unspecified radius, initial encounter for closed fracture

== ENCOUNTER → 2024-09-23 12:23 | Outpatient (BNVA) | payer OTHER, SELFPAY | PROVIDERS: PCP Nurse Practitioner Family; Visit Provider Nurse Practitioner Family | DX: I25.10 Atherosclerotic heart disease of native coronary artery without angina pectoris (principal); J41.0 Simple chronic bronchitis; F41.1 Generalized anxiety disorder; E78.2 Mixed hyperlipidemia; F33.0 Major depressive disorder, recurrent, mild; M85.89 Other specified disorders of bone density and structure, multiple sites; I73.9 Peripheral vascular disease, unspecified; S52.502D Unspecified fracture of the lower end of left radius, subsequent encounter for closed fracture with routine healing; W19.XXXD Unspecified fall, subsequent encounter; F17.200 Nicotine dependence, unspecified, uncomplicated | CPT/HCPCS: 96127 ==

== ENCOUNTER 2024-09-25 08:00 | Outpatient (REF) | payer OTHER, SELFPAY ==
[2024-09-25 10:00] LABS: Cholesterol 191 mg/dL (<200); HDL Cholesterol 75 mg/dL (>40); LDL Cholesterol Calculated 102 mg/dL (<100); Triglycerides 74 mg/dL (<150)
== END 2024-09-25 08:01 | disposition home or self-care (01) ==
LOC: HO.10HDL 08:00
PROVIDERS: Visit Provider Nurse Practitioner Family
DX: I25.10 Atherosclerotic heart disease of native coronary artery without angina pectoris (principal); E78.2 Mixed hyperlipidemia
CPT/HCPCS: 36415; 80061

== ENCOUNTER 2024-11-22 07:42 | Emergency (ER) | payer MEDICARE, SELFPAY ==
[2024-11-22] VITALS (7 sets, daily range): BP systolic 110–140; BP diastolic 58–74; PULSE 66–81; RESP 13–26; TEMP 36.3–36.9; O2SAT 98–100; BMI 20.1
--- NOTE | ~2024-11-22 | CT_ITS ---
EXAMINATION: CT ABDOMEN AND PELVIS WITH CONTRAST CLINICAL INFORMATION: Epigastric pain. COMPARISON: No prior. TECHNIQUE: Multidetector volumetric images were obtained from the superior aspect of the liver through the pubic symphysis following administration 85 mL of Omnipaque 350 intravenous contrast. Sagittal and coronal reformatted images were obtained on the technologist's workstation. Oral contrast: No This CT examination was performed using dose optimization techniques as appropriate, variously including the following: *Automated exposure control *Adjustment of mA and/or kV according to patient size (this includes techniques or standardized protocols for targeted exams where dose is matched to indication/reason for exam; i.e. extremities or head) *Use of iterative reconstruction technique FINDINGS: LUNG BASES: The imaged lung bases are grossly clear. There is no effusion or consolidation. The GE junction is grossly normal. The heart size is normal. LIVER, GALLBLADDER, AND BILIARY TREE: The liver is normal in size, shape, and attenuation. No focal hepatic lesion or biliary ductal dilatation is present. Mild focal fatty infiltration abutting the falciform ligament. The gallbladder is unremarkable with no evidence of radiopaque gallstones, gallbladder wall thickening, or obvious pericholecystic inflammatory changes. There are two 3 mm tiny enhancing foci, mural based, likely polyps. PANCREAS: Unremarkable. SPLEEN: Unremarkable. ADRENAL GLANDS: Mild bilateral hyperplasia. KIDNEYS AND URETERS: The kidneys are normal in size, shape, and attenuation. No hydronephrosis, hydroureter, or calculi seen. No perinephric stranding. BLADDER: Unremarkable. GASTROINTESTINAL TRACT: The stomach and duodenum appear grossly normal. The small bowel demonstrates normal caliber, with some mild mural enhancement, entirely nonspecific but may relate to mild enteritis. There is no bowel obstruction or caliber transition noted. The terminal ileum has an unremarkable appearance. A normal appendix is visualized. The colon demonstrates mild retained fecal material, and a small amount of diffuse circumferential wall thickening, which is seen throughout. The rectum is normal. ABDOMINAL WALL: No significant hernia is appreciated. LYMPH NODES: Normal. VASCULAR: Moderate to severe atheromatous calcification of the aorta and iliac arteries, without aneurysm. PELVIC VISCERA: The uterus and adnexa are unremarkable. There are prominent venous structures in the adnexal regions. OSSEOUS STRUCTURES: There is a mild right convex scoliosis of the lumbar spine centered at L2. There are mild degenerative changes. No suspicious lytic or blastic bone lesions. CT/CT abdomen pelvis w IV con IMPRESSION: 1. Mild diffuse mural wall thickening of the colon, which although subtle may relate to a mild colitis. Correlate for signs and symptoms. 2. Mild nonspecific mucosal enhancement of the small bowel, could be within normal limits although mild enteritis is also a consideration. 3. Prominent vascular structures in the adnexal regions, nonspecific but raising the possibility of pelvic congestion syndrome. 4. Moderate to extensive calcific atheromatous disease of the aorta and iliac vessels without aneurysm. Electronically signed by: Spike Juarez MD 11/22/2024 11:26 AM EDT
--- NOTE | ~2024-11-22 | XR_ITS ---
EXAMINATION: XR CHEST CLINICAL INFORMATION: shortness of breath COMPARISON: 12/15/2016. [facility] chest CT 08/15/2023. TECHNIQUE: Frontal view of the chest was obtained. FINDINGS: The cardiac, hilar, and mediastinal contours are normal. The lungs are mildly hyperaerated, however clear bilaterally. No pneumothorax or effusion. No focal osseous or soft tissue abnormality. XR/XR chest 1V IMPRESSION: No active pulmonary disease. Electronically signed by: Spike Juarez MD 11/22/2024 08:10 AM EDT
--- NOTE | 2024-11-22 07:53 | ECG_ITS ---
Test Reason : chest pain Blood Pressure : */* mmHG Vent. Rate : 74 BPM Atrial Rate : 74 BPM P-R Int : 136 ms QRS Dur : 88 ms QT Int : 402 ms P-R-T Axes : 75 25 58 degrees QTcB Int : 446 ms Normal sinus rhythm Possible Left atrial enlargement Borderline ECG No previous ECGs available Referred By: Generic ED Physician Electronically Signed By: EUNICE LING
--- NOTE | 2024-11-22 08:16 | ED.GENADULT ---
HPI - General Adult General Chief complaint: Dyspnea Stated complaint: Mid Abdominal Pain SOB Time Seen by Provider: 11/22/24 08:15 Source: patient Mode of arrival: ambulatory Limitations: no limitations History of Present Illness ED Provider: Julio Nelson PA-C HPI narrative: 69-year-old female with medical history of COPD, CAD, depression, anxiety, HLD presents to the emergency room due to abdominal pain. Patient stated she woke up around 230 this morning with a constant aching epigastric pain that radiates under her left breast which is associated with nausea. States that she was unable to get back to sleep and was tossing and turning all night unable to get comfortable due to the pain. Patient reports the pain is constant but has a hard time describing the quality of pain, and nausea has resolved at this time. Patient experiencing shortness of breath but states she thinks this is due to pain. She states the only thing that has changed in her daily routine is that she has been doing physical work outside for the last 4 days mowing her lawn and getting her pool set up for this season. She states that she has been excessively exerting herself. She denies any diet changes and states she had 1 glass of wine last night and drinks 1 glass of wine daily. She took Advil this morning and used a heating pad without relief. She denies recent illness, or sick contacts. She denies fevers, chills, vomiting, diarrhea, black/tarry stool, constipation MD complaint: epigastric pain Onset (ago): hour(s) (8) Location: abdomen (Epigastric) Radiation: other (Under left breast) Severity: moderate Quality: constant Pain Consistency: constant Relieving factors: none Exacerbating factors: movement Associated symptoms: denies other symptoms Treatments prior to arrival: NSAID (Advil) Related Data Home Medications ?Medication ?Instructions ?Recorded ?Confirmed calcium-mag oxide-vitamin D3 250 2 cap PO 03/16/20 09/23/24 mg-125 mg-200 unit capsule cholecalciferol (vitamin D3) 50 50 mcg PO DAILY 03/16/20 09/23/24 mcg (2,000 unit) capsule (Vitamin D3) omega-3 fatty acids-fish oil 684 1 cap PO DAILY 03/16/20 09/23/24 mg-1,200 mg capsule,delayed release Previous Rx's ?Medication ?Instructions ?Recorded bupropion HCl 150 mg tablet,12 hr 150 mg PO BID #180 tabs 03/25/24 sustained-release (Wellbutrin SR) escitalopram oxalate 10 mg tablet 15 mg (1.5 x 10 mg) PO DAILY 90 03/25/24 days #135 tabs atorvastatin 20 mg tablet 20 mg PO BEDTIME #90 tabs 09/27/24 famotidine 40 mg tablet 40 mg PO BEDTIME #7 tabs 11/22/24 ondansetron HCl 4 mg tablet 4 mg PO Q8H #10 tabs 11/22/24 Allergies Allergy/AdvReac Type Severity Reaction Status Date / Time doxycycline Allergy Severe Itching Verified 11/22/24 07:48 Review of Systems Review of Systems: CONST: Negative for fever, body aches and chills. HENT: Negative for neck pain/stiffness, headache, congestion, sore throat, swelling. EYES: Negative for discharge/pain or vision changes. RESP: Negative for cough/hemoptysis. POS mild SOB CV: Negative chest pain, difficulty breathing, palpitations. ABD: Negative, nausea, vomiting. POS abd pain : Negative increase frequency, dysuria, blood in urine or stool. MUSC: Negative for muscle aches, edema. SKIN: Negative rash, lesions/sores. NEURO: Negative headache, dizziness, weakness. [facility] Past Medical History Attestation statement: The following information was validated with the patient. Source: unable to obtain and old records reviewed Medical History (Updated 11/22/24 @ 12:34 by Leslie Kim PA-C) Nondisplaced fracture of distal end of radius Strain of left wrist Skin cancer Overactive bladder Hyperlipemia Anxiety Depression COPD (chronic obstructive pulmonary disease) Osteoporosis Surgical History H/O oral surgery Hx of colonoscopy Family History Family History Mother High cholesterol Colon cancer Father Cardiovascular disease Sister Breast cancer Social History Social History Household Members: None Housing: House Are you a primary acute care nursing assistant to a significant other at home: No Do you presently have visiting nurse or other home services: No Alcohol intake: current Alcohol intake frequency: 0-2 drinks per day Alcohol type: wine Patient Tobacco Use Status: Current everyday Tobacco user Tobacco use type: Cigarette Cigarette Packs Per Day: 0.5 Cigarettes Per Day: 10.0 Smoked in Last 30 Days: Yes e-Cigarette/Vaping Use: Never Used Advance Directives: No Advance Directives Information Provided: Yes Do you have a plan to hurt others: No Plan service: No Current occupational status: employed Current occupation: [employer] Cognitive needs: No Hearing needs: Yes (has hearing aid) Vision needs: Yes (wear glasses) Physical Exam ED Vital Signs: Vital Signs - 24 hr 11/22/24 07:48 11/22/24 08:35 11/22/24 10:00 Temperature 97.3 F 97.6 F 98.5 F Pulse Rate 81 69 68 Respiratory Rate 26 H 16 13 Blood Pressure 120/69 110/68 140/74 H Pulse Oximetry 100 100 99 Oxygen Delivery Method Room Air Room Air Room Air 11/22/24 11:21 11/22/24 12:00 11/22/24 12:58 Temperature 98.2 F 98.0 F 98.2 F Pulse Rate 66 70 73 Respiratory Rate 13 15 15 Blood Pressure 134/71 125/58 L 132/64 Pulse Oximetry 100 98 99 Oxygen Delivery Method Room Air Room Air Room Air BMI result Body Mass Index 20.1 GENERAL APPEARANCE: ?AxOx4, generally well-appearing, no acute distress. HEENT: ?NC, AT. MMM. EOMI, clear conjunctiva, oropharynx clear. NECK: ?Supple without lymphadenopathy.? No stiffness or restricted ROM. HEART:? Normal rate and regular rhythm, normal S1/S1, no m/r/g LUNGS:? CTAB, moving air well. No crackles or wheezes are heard. ABDOMEN: ?Soft, nondistended with good bowel sounds heard all 4 quadrants. Epigastric TTP, no rebound tenderness, no guarding, abdomen soft no rigidity, negative Russell's sign, no flank or umbilical ecchymosis, no pulsatile masses BACK: No CVAT, no obvious deformity. No tenderness EXTREMITIES: ?Without cyanosis, clubbing or edema. NEUROLOGICAL: ?Grossly nonfocal. Alert and oriented, moving all 4 extremities. Observed to ambulate with normal gait. Skin: ?Warm and dry without any rash. Medications Administered Discontinued Medications Generic Name Dose Route Start Last Admin Trade Name Dank PRN Reason Stop Dose Admin Al Hydroxide/Mg Hydroxide 30 ml 11/22/24 08:43 11/22/24 09:02 Magnesium Hydrox/Alum Hydrox 30 Ml Oral.Susp PO 11/22/24 08:44 30 ml ONCE ONE Administration Famotidine 20 mg 11/22/24 08:43 11/22/24 09:02 Famotidine/Pf 20 Mg/2 Ml Vial IVPUSH 11/22/24 08:44 20 mg ONCE ONE Administration Lactated Ringer's 1,000 mls @ 999 mls/hr 11/22/24 08:36 11/22/24 09:46 Lr IV 11/22/24 09:36 Infused .Q1H1M ONE Infusion Iohexol 100 ml 11/22/24 10:56 11/22/24 10:56 Iohexol 350 Mg/Ml 100 Ml Infus..Btl IV 11/22/24 10:57 85 ml ONCE ONE Administration Lidocaine HCl 15 ml 11/22/24 08:43 11/22/24 09:01 Lidocaine Hcl Viscous 2 % 15 Ml Solution MUCOUS MEM 11/22/24 08:44 15 ml ONCE ONE Administration Morphine Sulfate 4 mg 11/22/24 10:37 11/22/24 11:06 Morphine Sulfate 4 Mg/Ml Cartridge IVPUSH 11/22/24 10:38 4 mg ONCE ONE Administration Protocol Ondansetron HCl 4 mg 11/22/24 10:29 11/22/24 11:07 Ondansetron Hcl 4 Mg/2 Ml Vial IVPUSH 11/22/24 10:30 4 mg ONCE ONE Administration Medical Decision Making Medical Decision Making MDM Narrative: 69-year-old female with medical history of COPD, CAD, depression, anxiety, HLD presents to the emergency room due to abdominal pain. Patient stated she woke up around 230 this morning with a constant aching epigastric pain that radiates under her left breast which is associated with nausea. Patient stated she had 1 glass of wine last night, drinks 1 glass of wine daily. Patient smokes tobacco daily. VSS, in no acute distress, nontoxic appearing. On physical exam patient is mildly TTP over epigastric region, abdomen soft, nondistended, no rigidity, no guarding, no rebound tenderness negative Russell sign no leukocytosis-less likely gallbladder disease, appendicitis, diverticular disease. unable to reproduce pain with palpation over left sternal area/left breast costal area- less likely costochondritis. EKG without ST elevation/depression/T-wave abnormalities waiting initial troponin to rule out ACS as patient has significant risk factors. Patient without syncope, or hypertension, no tearing chest pain, does not radiate to the back- less likely aortic dissection. Chest x-ray normal shows hyperinflation consistent with COPD, no evidence of pneumothorax, patient with bilateral breath sounds and symmetric chest rise and fall. Labs without leukocytosis, elevated bilirubin, lipase within normal limits, no electrolyte derangement. Initial troponin WNL, will obtain repeat troponin due to patient's risk factors of CAD, HLD, current tobacco smoker, HEART score of 4. At this time we will begin IV fluids for rehydration, and trial GI cocktail of famotidine, Maalox, viscous lidocaine and reassess for improvement. Course 10:30- Patient received IV fluids, and GI cocktail without effect. She has worsening epigastric pain and nausea has returned. Will medicate with 4mg IV zofran. 12:17- Patient nausea and abdominal pain is under control at this time. We will trial p.o. with crackers and walt roxy to see if patient is able to tolerate. 2nd troponin WNL- No concern for ACS CT abdomen reveals diffuse mural wall thickening of the colon which may be indicative to mild colitis. Mild mucosal enhancement of small bowel maybe indicative of mild enteritis. Prominent vascular structures of the adnexal regions possible pelvic congestion syndrome. Moderate to extensive calcific atheromatous disease of the aorta and iliac vessels without aneurysm. Differential Diagnosis Differential Diagnoses: The differential diagnosis associated with the presentation includes ACS Aortic dissection pneumothorax Pancreatitis Gastritis gastroenteritis GERD Gallbladder disease Appendicitis Diverticular disease Admission/Observation Consideration of admission/observation: Escalation of care including admission/observation considered Lab Data MDM Lab Attestation statement: I reviewed the patient's lab results. 11/22/24 08:49 11/22/24 08:49 Labs: Lab Results 11/22/24 11/22/24 11/22/24 Range/Units 08:49 08:49 08:49 WBC 6.4 (4.8-10.8) X10*3/uL RBC 4.18 L (4.20-5.50) X10*6/uL Hgb 13.4 (12.0-16.0) g/dl Hct 38.6 (37.0-47.0) % MCV 92.3 (80.0-98.0) fL MCH 32.1 (27.0-33.0) pg MCHC 34.7 (31.0-35.0) g/dl RDW 12.5 (11.0-16.0) % Plt Count 255 D (160-400) X10*3/uL MPV 9.6 (9.4-12.3) fL Immature Gran % (Auto) 0.5 H (0.0-0.4) % Neut % (Auto) 57.7 (45-73) % Lymph % (Auto) 29.2 (20-40) % [place] % (Auto) 10.0 (2-11) % Eos % (Auto) 1.7 (0-4) % Baso % (Auto) 0.9 (0-2) % Lymph # (Auto) 1.9 (1.2-4.9) X10*3/uL [place] # (Auto) 0.6 (0.1-1.2) X10*3/uL Eos # (Auto) 0.1 (0.0-0.4) X10*3/uL Baso # (Auto) 0.1 (0.0-0.2) X10*3/uL Abs Immat Gran (auto) 0.03 (0.00-0.03) X10*3/uL Absolute Neuts (auto) 3.7 (2.0-8.3) x10*3/uL Absolute Nucleated RBC 0.000 (0.0-0.012) X10*3/uL Nucleated RBC % (auto) 0.0 (0.0-0.2) /100WBC Sodium 141 (135-145) mmol/L Potassium 3.6 (3.3-5.1) mmol/L Chloride 109 H (96-108) mmol/L Carbon Dioxide 23 (22-29) mmol/L Anion Gap 13 (12-20) BUN 14 (9-16) mg/dL Creatinine 0.82 (0.5-1.4) mg/dL Estim Creat Clear Calc 57.6 Estimated GFR > 60 Random Glucose 97 (60-115) mg/dL Calcium 9.2 (8.4-10.2) mg/dL Magnesium 1.8 (1.6-2.6) mg/dL Total Bilirubin 0.6 0.6 (0.0-1.0) mg/dL Direct Bilirubin 0.2 (0.0-0.5) mg/dL AST 30 31 (5-31) U/L ALT 11 (0-31) U/L Alkaline Phosphatase (39-117) U/L Troponin I High Sens (<3.5-17.0) ng/L Total Protein (6.5-8.0) g/dL Albumin (3.5-5.0) g/dL Lipase (8-78) U/L 11/22/24 11/22/24 11/22/24 Range/Units 08:49 08:49 08:49 WBC (4.8-10.8) X10*3/uL RBC (4.20-5.50) X10*6/uL Hgb (12.0-16.0) g/dl Hct (37.0-47.0) % MCV (80.0-98.0) fL MCH (27.0-33.0) pg MCHC (31.0-35.0) g/dl RDW (11.0-16.0) % Plt Count (160-400) X10*3/uL MPV (9.4-12.3) fL Immature Gran % (Auto) (0.0-0.4) % Neut % (Auto) (45-73) % Lymph % (Auto) (20-40) % [place] % (Auto) (2-11) % Eos % (Auto) (0-4) % Baso % (Auto) (0-2) % Lymph # (Auto) (1.2-4.9) X10*3/uL [place] # (Auto) (0.1-1.2) X10*3/uL Eos # (Auto) (0.0-0.4) X10*3/uL Baso # (Auto) (0.0-0.2) X10*3/uL Abs Immat Gran (auto) (0.00-0.03) X10*3/uL Absolute Neuts (auto) (2.0-8.3) x10*3/uL Absolute Nucleated RBC (0.0-0.012) X10*3/uL Nucleated RBC % (auto) (0.0-0.2) /100WBC Sodium (135-145) mmol/L Potassium (3.3-5.1) mmol/L Chloride (96-108) mmol/L Carbon Dioxide (22-29) mmol/L Anion Gap (12-20) BUN (9-16) mg/dL Creatinine (0.5-1.4) mg/dL Estim Creat Clear Calc Estimated GFR Random Glucose (60-115) mg/dL Calcium (8.4-10.2) mg/dL Magnesium (1.6-2.6) mg/dL Total Bilirubin (0.0-1.0) mg/dL Direct Bilirubin (0.0-0.5) mg/dL AST (5-31) U/L ALT 12 (0-31) U/L Alkaline Phosphatase 63 63 (39-117) U/L Troponin I High Sens < 2.7 (<3.5-17.0) ng/L Total Protein 6.3 L 6.3 L (6.5-8.0) g/dL Albumin 3.8 (3.5-5.0) g/dL Lipase (8-78) U/L 11/22/24 11/22/24 Range/Units 08:49 11:17 WBC (4.8-10.8) X10*3/uL RBC (4.20-5.50) X10*6/uL Hgb (12.0-16.0) g/dl Hct (37.0-47.0) % MCV (80.0-98.0) fL MCH (27.0-33.0) pg MCHC (31.0-35.0) g/dl RDW (11.0-16.0) % Plt Count (160-400) X10*3/uL MPV (9.4-12.3) fL Immature Gran % (Auto) (0.0-0.4) % Neut % (Auto) (45-73) % Lymph % (Auto) (20-40) % [place] % (Auto) (2-11) % Eos % (Auto) (0-4) % Baso % (Auto) (0-2) % Lymph # (Auto) (1.2-4.9) X10*3/uL [place] # (Auto) (0.1-1.2) X10*3/uL Eos # (Auto) (0.0-0.4) X10*3/uL Baso # (Auto) (0.0-0.2) X10*3/uL Abs Immat Gran (auto) (0.00-0.03) X10*3/uL Absolute Neuts (auto) (2.0-8.3) x10*3/uL Absolute Nucleated RBC (0.0-0.012) X10*3/uL Nucleated RBC % (auto) (0.0-0.2) /100WBC Sodium (135-145) mmol/L Potassium (3.3-5.1) mmol/L Chloride (96-108) mmol/L Carbon Dioxide (22-29) mmol/L Anion Gap (12-20) BUN (9-16) mg/dL Creatinine (0.5-1.4) mg/dL Estim Creat Clear Calc Estimated GFR Random Glucose (60-115) mg/dL Calcium (8.4-10.2) mg/dL Magnesium (1.6-2.6) mg/dL Total Bilirubin (0.0-1.0) mg/dL Direct Bilirubin (0.0-0.5) mg/dL AST (5-31) U/L ALT (0-31) U/L Alkaline Phosphatase (39-117) U/L Troponin I High Sens < 2.7 (<3.5-17.0) ng/L Total Protein (6.5-8.0) g/dL Albumin 3.8 (3.5-5.0) g/dL Lipase 14 (8-78) U/L Independent Interpretation I performed an independent interpretation of an: EKG and Plain X-Ray Interpretation: I independently interpreted the EKG and chest x-ray EKG: Vent. Rate : 74 BPM Atrial Rate : 74 BPM P-R Int : 136 ms QRS Dur : 88 ms QT Int : 402 ms P-R-T Axes : 75 25 58 degrees QTcB Int : 446 ms Normal sinus rhythm Possible Left atrial enlargement Possible Lateral infarct , age undetermined Abnormal ECG No previous ECGs available Radiology Impression Discussion of test interpretation with radiology: I have reviewed the radiologist's reading. Radiologist Impression: Chest XR TECHNIQUE: Frontal view of the chest was obtained. FINDINGS: The cardiac, hilar, and mediastinal contours are normal. The lungs are mildly hyperaerated, however clear bilaterally. No pneumothorax or effusion. No focal osseous or soft tissue abnormality. XR/XR chest 1V IMPRESSION: No active pulmonary disease. Electronically signed by: Spike Juarez MD 11/22/2024 08:[address] abdomen/pelvis with contrast FINDINGS: LUNG BASES: The imaged lung bases are grossly clear. There is no effusion or consolidation. The GE junction is grossly normal. The heart size is normal. LIVER, GALLBLADDER, AND BILIARY TREE: The liver is normal in size, shape, and attenuation. No focal hepatic lesion or biliary ductal dilatation is present. Mild focal fatty infiltration abutting the falciform ligament. The gallbladder is unremarkable with no evidence of radiopaque gallstones, gallbladder wall thickening, or obvious pericholecystic inflammatory changes. There are two 3 mm tiny enhancing foci, mural based, likely polyps. PANCREAS: Unremarkable. SPLEEN: Unremarkable. ADRENAL GLANDS: Mild bilateral hyperplasia. KIDNEYS AND URETERS: The kidneys are normal in size, shape, and attenuation. No hydronephrosis, hydroureter, or calculi seen. No perinephric stranding. BLADDER: Unremarkable. GASTROINTESTINAL TRACT: The stomach and duodenum appear grossly normal. The small bowel demonstrates normal caliber, with some mild mural enhancement, entirely nonspecific but may relate to mild enteritis. There is no bowel obstruction or caliber transition noted. The terminal ileum has an unremarkable appearance. A normal appendix is visualized. The colon demonstrates mild retained fecal material, and a small amount of diffuse circumferential wall thickening, which is seen throughout. The rectum is normal. ABDOMINAL WALL: No significant hernia is appreciated. LYMPH NODES: Normal. VASCULAR: Moderate to severe atheromatous calcification of the aorta and iliac arteries, without aneurysm. PELVIC VISCERA: The uterus and adnexa are unremarkable. There are prominent venous structures in the adnexal regions. OSSEOUS STRUCTURES: There is a mild right convex scoliosis of the lumbar spine centered at L2. There are mild degenerative changes. No suspicious lytic or blastic bone lesions. CT/CT abdomen pelvis w IV con IMPRESSION: 1. Mild diffuse mural wall thickening of the colon, which although subtle may relate to a mild colitis. Correlate for signs and symptoms. 2. Mild nonspecific mucosal enhancement of the small bowel, could be within normal limits although mild enteritis is also a consideration. 3. Prominent vascular structures in the adnexal regions, nonspecific but raising the possibility of pelvic congestion syndrome. 4. Moderate to extensive calcific atheromatous disease of the aorta and iliac vessels without aneurysm. Electronically signed by: Spike Juarez MD 11/22/2024 11:26 AM EDT Dictated By: Spike Juarez MD Signed By: <Electronically signed by Spike Juarez MD in OV> External Record Review External record reviewed: Inpatient record, Office record and Outpatient record Prescription Management I considered prescription management with: Pain Medication Will trial GI cocktail for symptom relief and reassess need for pain medication. Chronic Conditions Patient?s care impacted by: Other (COPD, CAD, HLD) Scores Heart Score History: -1- moderately suspicious ECG: -0- normal Age: -1- >45 - <65 Risk factory: -2- 3 or more risk factors or treated atherosclerosis Troponin: -0- < or = normal limit Score: 4 Risk: 16.6% Discharge Plan Discharge Clinical Impression: Gastroenteritis Patient Disposition: Home, Self-Care Instructions: Gastroenteritis (ED) Additional Instructions: You were evaluated in the emergency department today due to abdominal pain and nausea. Your labs were normal and did not show any emergent process. Your EKG was normal. Your chest x-ray was normal and did not show any signs of any emergent process. CT of your abdomen and pelvis revealed mild wall thickening of the colon, and mucosal thickening of the bowel. These findings are consistent with gastroenteritis which is usually caused by a virus. The CT scan also found an incidental finding of increased vascularity of your ovaries indicating a possible pelvic congestion syndrome. Your aorta and iliac vessels show moderate to extensive calcification. You were given IV fluids, and were medicated with 4 mg IV morphine and 4 mg IV Zofran for pain and nausea management. You should stay hydrated and stick to a bland diet until your symptoms resolve. I will send you a prescription for Zofran to help you manage your nausea. I will also prescribe you a course of Pepcid to help control your stomach acid and alleviate some pain. You should follow up with your PCP to discuss the findings on your CT scan and to ensure your improvement. Please return to the ED if you experience fevers over 100.4?, increased nausea, vomiting, increased abdominal pain, inability to move your bowels, or any other new/worsening/concerning symptoms Prescriptions: New ondansetron HCl 4 mg tablet 4 mg PO Q8H Qty: 10 0RF famotidine 40 mg tablet 40 mg PO BEDTIME Qty: 7 0RF No Action atorvastatin 20 mg tablet 20 mg PO BEDTIME Qty: 90 2RF calcium-mag oxide-vitamin D3 250-125-200 mg-mg-unit Capsule 2 cap PO omega-3 fatty acids-fish oil 684-1,200 mg Capsule,Delayed Release(Dr/Ec) 1 cap PO DAILY cholecalciferol (vitamin D3) [Vitamin D3] 50 mcg (2,000 unit) Capsule 50 mcg PO DAILY bupropion HCl [Wellbutrin SR] 150 mg tablet sustained-release 12 hr 150 mg PO BID Qty: 180 0RF escitalopram oxalate 10 mg tablet 15 mg PO DAILY 90 Days Qty: 135 0RF Print Language: Luxembourgish
[2024-11-22] MEDS: Lactated Ringers 1,000 ML 999 ML IV (08:45)
[2024-11-22 08:57] LABS: MANUAL DIFF FLAG NO
[2024-11-22 08:58] LABS: Basophils Absolute Auto 0.1 X10*3/uL (0.0-0.2); Basophils Percent Auto 0.9 % (0-2); Eosinophils Absolute Auto 0.1 X10*3/uL (0.0-0.4); Eosinophils Percent Auto 1.7 % (0-4); Hematocrit 38.6 % (37.0-47.0); Hemoglobin 13.4 g/dl (12.0-16.0); Imm Gran Abs Auto 0.03 X10*3/uL (0.00-0.03); Imm Gran Pct Auto 0.5 % (0.0-0.4); Lymphocytes Absolute Auto 1.9 X10*3/uL (1.2-4.9); Lymphocytes Percent Auto 29.2 % (20-40); Mean Corpuscular HGB Conc 34.7 g/dl (31.0-35.0); Mean Corpuscular Hemoglobin 32.1 pg (27.0-33.0); Mean Corpuscular Volume 92.3 fL (80.0-98.0); Mean Platelet Volume 9.6 fL (9.4-12.3); Monocytes Absolute Auto 0.6 X10*3/uL (0.1-1.2); Neutrophils Absolute Auto 3.7 x10*3/uL (2.0-8.3); Neutrophils Percent Auto 57.7 % (45-73); Platelet Count 255 X10*3/uL (160-400); Red Blood Count 4.18 X10*6/uL (4.20-5.50); Red Cell Distribution Width 12.5 % (11.0-16.0); White Blood Count 6.4 X10*3/uL (4.8-10.8)
[2024-11-22] MEDS: Lidocaine HCl Viscous 2 % 15 ML SOLUTION MUCOUS MEM (09:01)
[2024-11-22] MEDS: Magnesium Hydrox/Alum Hydrox 30 ML ORAL.SUSP PO (09:02)
[2024-11-22] MEDS: Famotidine/PF 20 MG/2 ML VIAL IVPUSH (09:02)
[2024-11-22 09:13] LABS: Alanine Aminotransferase 11 U/L (0-31); Alanine Aminotransferase 12 U/L (0-31); Albumin Level 3.8 g/dL (3.5-5.0); Alkaline Phosphatase 63 U/L (39-117); Anion Gap 13 (12-20); Aspartate Amino Transferase 30 U/L (5-31); Aspartate Amino Transferase 31 U/L (5-31); Bilirubin Direct 0.2 mg/dL (0.0-0.5); Bilirubin Total 0.6 mg/dL (0.0-1.0); Blood Urea Nitrogen 14 mg/dL (9-16); Calcium 9.2 mg/dL (8.4-10.2); Carbon Dioxide 23 mmol/L (22-29); Chloride 109 mmol/L (96-108); Creatinine Clr Calc Pharmacy 57.6; Estimated Glomerular Filt Rate > 60; Glucose Random 97 mg/dL (60-115); Lipase 14 U/L (8-78); Magnesium 1.8 mg/dL (1.6-2.6); Potassium 3.6 mmol/L (3.3-5.1); Sodium 141 mmol/L (135-145); Total Protein 6.3 g/dL (6.5-8.0)
[2024-11-22 09:19] LABS: Troponin-I High Sensitivity < 2.7 ng/L (<3.5-17.0)
--- OUTSIDE RECORDS SUMMARY | 2024-11-22 09:43 | XMS_ITS | Continuity of Care Document ---
Author Organization [facility] Address [address] [place] [address] Phone Care Team Providers Care Product Consultant Name Role Phone Lavern KRISSYDarren Unavailable Unavailable [...] Diagnoses Date Provider Providers Copied on Encounter [facility], [address], [place], [place], [id number], [place] tel:[phone] [facility] problem (chief complaint) Foreign body in conjunctival sac, left eye, init encntr Lavern Banks. [address], [place], [address], [place]. tel:[phone] Referring Provider: Darren Puckett OD, [address], [place], [address]. tel:[phone] [facility], [address], [place], [place], [id number], [place] tel:[phone] [facility] No Information Lavern Banks. [address], [place], [address], [place]. tel:[phone] Family History Family Member Type Diagnosis Age At Onset No Information Payers Payer name Insurance type Covered republican ID Authoriza tion(s) [facility] BL [id number] Social History Type Description Quantity Date Captured Comments Alcohol Use Details Unknown Caffeine Use Details Unknown Tobacco Use Status Unknown if ever smoked Smoking Status Unknown if ever smoked Non-Smoking Tobacco Use Details : No Details Available : No Details Available Sex Female Sexual Orientation Straight or heterosexual Chief Complaint And Reason For Visit From [...]
[2024-11-22] MEDS: iohexoL 350 MG/ML 100 ML INFUS..BTL IV (10:56)
[2024-11-22] MEDS: Morphine Sulfate 4 MG/ML CARTRIDGE IVPUSH (11:06)
[2024-11-22] MEDS: ondansetron HCL 4 MG/2 ML VIAL IVPUSH (11:07)
[2024-11-22 11:52] LABS: Troponin-I High Sensitivity < 2.7 ng/L (<3.5-17.0)
== END 2024-11-22 13:17 | disposition home or self-care (01) ==
PROVIDERS: Emergency Provider Emergency Medicine; PCP Nurse Practitioner Family
DX: K52.9 Noninfective gastroenteritis and colitis, unspecified (principal); R06.02 Shortness of breath; R10.2 Pelvic and perineal pain; R07.89 Other chest pain; J44.9 Chronic obstructive pulmonary disease, unspecified; R11.0 Nausea; R10.13 Epigastric pain; I25.10 Atherosclerotic heart disease of native coronary artery without angina pectoris; Z79.899 Other long term (current) drug therapy
CPT/HCPCS: 36415; 71045; 74177; 80053; 80076; 82248; 83690; 83735; 84484; 85025; 93005; 96361; 96374; 96375; 99285; J1308; J2270; J2405; J7120; Q9967

== ENCOUNTER → 2024-11-22 07:53 | Outpatient (BNV) | payer MEDICARE, SELFPAY | PROVIDERS: Emergency Provider Emergency Medicine; PCP Nurse Practitioner Family; Visit Provider Internal Medicine | DX: R10.13 Epigastric pain (principal) | CPT/HCPCS: 93010 ==

== ENCOUNTER → 2024-11-22 07:53 | Outpatient (BNV) | payer OTHER, SELFPAY | PROVIDERS: PCP Nurse Practitioner Family; Visit Provider Radiology Diagnostic Radiology | DX: I70.0 Atherosclerosis of aorta (principal); R06.02 Shortness of breath | CPT/HCPCS: 71045; 74177 ==

== ENCOUNTER → 2024-11-24 00:06 | Outpatient (BNV) | payer MEDICARE, SELFPAY | PROVIDERS: PCP Nurse Practitioner Family; Visit Provider Radiology Diagnostic Radiology | DX: R10.13 Epigastric pain (principal); M54.6 Pain in thoracic spine | CPT/HCPCS: 71046 ==

== ENCOUNTER 2024-11-24 00:42 | Emergency (ER) | payer MEDICARE, SELFPAY ==
--- NOTE | 2024-11-24 | ECG_ITS ---
Test Reason : EPIGASTRIC PAIN Blood Pressure : */* mmHG Vent. Rate : 70 BPM Atrial Rate : 70 BPM P-R Int : 140 ms QRS Dur : 92 ms QT Int : 392 ms P-R-T Axes : 74 29 59 degrees QTcB Int : 423 ms Normal sinus rhythm Normal ECG When compared with ECG of 22-Nov-2024 07:54, No significant change was found Referred By: Generic ED Physician Electronically Signed By: EUNICE LING
--- NOTE | ~2024-11-24 | XR_ITS ---
CLINICAL HISTORY: epigastric upper back pain 2 view chest x-ray. Comparison: CR/SR - XR CHEST 1V - 11/22/24 08:04 EDT Findings: No consolidation, pneumothorax, or effusion. Heart size normal. Impression: 1. No acute cardiopulmonary process. No focal pulmonary consolidation. This document has been electronically signed by: Jacob Chavez MD on 11/24/2024 01:39:57
[2024-11-24 00:46] VITALS: BP 122/76; PULSE 80; RESP 26; TEMP 36.6; O2SAT 100; BMI 20.5
[2024-11-24 01:25] LABS: Basophils Absolute Auto 0.1 X10*3/uL (0.0-0.2); Basophils Percent Auto 1.1 % (0-2); Eosinophils Absolute Auto 0.1 X10*3/uL (0.0-0.4); Eosinophils Percent Auto 1.8 % (0-4); Hemoglobin 13.7 g/dl (12.0-16.0); Imm Gran Abs Auto 0.03 X10*3/uL (0.00-0.03); Imm Gran Pct Auto 0.4 % (0.0-0.4); Lymphocytes Absolute Auto 2.1 X10*3/uL (1.2-4.9); MANUAL DIFF FLAG NO; Mean Corpuscular HGB Conc 34.3 g/dl (31.0-35.0); Mean Corpuscular Hemoglobin 31.6 pg (27.0-33.0); Mean Corpuscular Volume 92.4 fL (80.0-98.0); Monocytes Absolute Auto 0.7 X10*3/uL (0.1-1.2); Monocytes Percent Auto 10.1 % (2-11); Neutrophils Percent Auto 56.6 % (45-73); Platelet Count 252 X10*3/uL (160-400); Red Blood Count 4.33 X10*6/uL (4.20-5.50); Red Cell Distribution Width 12.2 % (11.0-16.0)
[2024-11-24 01:45] LABS: Alanine Aminotransferase 14 U/L (0-31); Albumin Level 3.9 g/dL (3.5-5.0); Anion Gap 15 (12-20); Aspartate Amino Transferase 27 U/L (5-31); Bilirubin Total 0.5 mg/dL (0.0-1.0); Blood Urea Nitrogen 13 mg/dL (9-16); Calcium 9.2 mg/dL (8.4-10.2); Carbon Dioxide 25 mmol/L (22-29); Chloride 105 mmol/L (96-108); Estimated Glomerular Filt Rate > 60; Glucose Random 113 mg/dL (60-115); Potassium 4.5 mmol/L (3.3-5.1); Sodium 140 mmol/L (135-145); Total Protein 6.1 g/dL (6.5-8.0); Troponin-I High Sensitivity < 2.7 ng/L (<3.5-17.0)
--- OUTSIDE RECORDS SUMMARY | 2024-11-24 02:41 | XMS_ITS | Continuity of Care Document ---
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 [address], [place], [address], [place]. tel:[phone] Referring Provider: Darren Puckett OD, [address], [place], [address]. tel:[phone] [facility], [address], [place], [place], [id number], [place] tel:[phone] [facility] No Information Lavern Banks. [address], [place], [address], [place]. tel:[phone] Family History Family Member Type Diagnosis Age At Onset No Information Payers Payer name Insurance type Covered green party ID Authoriza tion(s) [employer] [id number] Social History Type Description Quantity Date [...]
[2024-11-24 03:05] LABS: Alkaline Phosphatase 60 U/L (39-117)
[2024-11-24 04:17] VITALS: BP 145/75; PULSE 65; RESP 18; TEMP 36.6; O2SAT 99
[2024-11-24 04:32] LABS: Appearance Urine Clear; Color Urine Yellow; Glucose Urine UA Negative (Negative); Leukocyte Esterase Urine Moderate (2+) (Negative); Nitrite Urine Negative (Negative); UMIC TRIGGER UACC YES; Urine Blood Trace (Negative); Urine Ketones Trace mg/dL (Negative); Urine Protein Negative (Neg-Trace)
[2024-11-24 04:37] LABS: Bacteria Urine None Seen (None Seen); Hyaline Casts Urine 0-2 /LPF (0-2); RBC Urine 0-2 /HPF (0-2); UACC Culture Trigger YES
--- NOTE | 2024-11-24 05:51 | ED.ABDPAIN ---
HPI - Abdominal Pain General Chief Complaint: Abdominal Pain Stated Complaint: abd pain Time Seen by Provider: 11/24/24 05:50 Source: patient Mode of arrival: ambulatory Limitations: no limitations History of Present Illness ED Provider: HPI narrative: Patient's history of depression and COPD was seen here 2 days ago on for abdominal pain CT scan of the abdomen and workup was negative comes here as again having the pain bilateral upper quadrants with slight nausea denies any urinary symptoms Related Data Home Medications ?Medication ?Instructions ?Recorded ?Confirmed calcium-mag oxide-vitamin D3 250 2 cap PO 03/16/20 09/23/24 mg-125 mg-200 unit capsule cholecalciferol (vitamin D3) 50 50 mcg PO DAILY 03/16/20 09/23/24 mcg (2,000 unit) capsule (Vitamin D3) omega-3 fatty acids-fish oil 684 1 cap PO DAILY 03/16/20 09/23/24 mg-1,200 mg capsule,delayed release Previous Rx's ?Medication ?Instructions ?Recorded bupropion HCl 150 mg tablet,12 hr 150 mg PO BID #180 tabs 03/25/24 sustained-release (Wellbutrin SR) escitalopram oxalate 10 mg tablet 15 mg (1.5 x 10 mg) PO DAILY 90 03/25/24 days #135 tabs atorvastatin 20 mg tablet 20 mg PO BEDTIME #90 tabs 09/27/24 famotidine 40 mg tablet 40 mg PO BEDTIME #7 tabs 11/22/24 ondansetron HCl 4 mg tablet 4 mg PO Q8H #10 tabs 11/22/24 cefuroxime axetil 250 mg tablet 250 mg PO BID 7 days #14 tabs 11/24/24 tramadol 50 mg tablet 50 mg PO Q8-10H PRN pain #20 tabs 11/24/24 Allergies Allergy/AdvReac Type Severity Reaction Status Date / Time doxycycline Allergy Severe Itching Verified 11/24/24 00:51 Review of Systems Review of Systems Yes all other systems are reviewed and are negative PMFSH Past Medical History Medical History Nondisplaced fracture of distal end of radius Strain of left wrist Skin cancer Overactive bladder Hyperlipemia Anxiety Depression COPD (chronic obstructive pulmonary disease) Osteoporosis Surgical History H/O oral surgery Hx of colonoscopy Family History Family History Mother High cholesterol Colon cancer Father Cardiovascular disease Sister Breast cancer Social History Social History Household Members: None Housing: House Are you a primary healthcare analyst to a significant other at home: No Do you presently have visiting nurse or other home services: No Alcohol intake: current Alcohol intake frequency: 0-2 drinks per day Alcohol type: wine Patient Tobacco Use Status: Current everyday Tobacco user Tobacco use type: Cigarette Cigarette Packs Per Day: 0.5 Cigarettes Per Day: 10.0 Smoked in Last 30 Days: Yes e-Cigarette/Vaping Use: Never Used Use of substances other than those prescribed or required for medical reasons: No Advance Directives: Yes Advance Directives on File: Yes Advance Directives Date on File: 08/31/20 Do you have a plan to hurt others: No Plan service: No Current occupational status: employed Current occupation: [employer] Cognitive needs: No Hearing needs: Yes (has hearing aid) Vision needs: Yes (wear glasses) Physical Exam ED Vital Signs: Vital Signs - 24 hr 11/24/24 00:46 11/24/24 04:17 Temperature 97.9 F 97.8 F Pulse Rate 80 65 Respiratory Rate 26 H 18 Blood Pressure 122/76 145/75 H Pulse Oximetry 100 99 Oxygen Delivery Method Room Air Room Air BMI result Body Mass Index 20.5 Appearance: Alert. Oriented X3. No acute distress. Eyes: PERRLA, No Nystagmus ENT: Pharynx normal. Oral Mucosa moist Neck: Normal inspection. Neck supple. CVS: Normal heart rate and rhythm. Pulses normal. Respiratory: No respiratory distress. Equal air entry bilateral, no wheezing/rales/rhonchi Abdomen: Soft and mild tenderness in the bilateral upper quadrant no rebound tenderness or guarding. Bowel sounds are present, no mass palpable, no CVA tenderness Skin: Skin warm and dry. Normal skin color. Normal skin turgor. Back: Mild tenderness left rhomboids area Extremities: No lower extremity edema. No calf tenderness Neuro: Oriented X 3. No motor deficit. No sensory deficit.No cerebellar signs , cranial nerves II-XII intact Medical Decision Making Medical Decision Making [facility] Narrative: Patient nonspecific abdominal pain initial workup was-2 days ago and today also everything labs were stable patient asking for morphine will give dicyclomine advised to follow up with PCP will give antibiotic for UTI Differential Diagnosis Differential Diagnoses: The differential diagnosis associated with the presentation includes UTI/kidney stone/gastritis/nonspecific abdominal pain Lab Data [facility] Lab Attestation statement: I reviewed the patient's lab results. 11/24/24 01:20 11/24/24 01:20 Labs: Lab Results 11/24/24 11/24/24 Range/Units 01:20 04:24 WBC 7.0 (4.8-10.8) X10*3/uL RBC 4.33 (4.20-5.50) X10*6/uL Hgb 13.7 (12.0-16.0) g/dl Hct 40.0 (37.0-47.0) % MCV 92.4 (80.0-98.0) fL MCH 31.6 (27.0-33.0) pg MCHC 34.3 (31.0-35.0) g/dl RDW 12.2 (11.0-16.0) % Plt Count 252 (160-400) X10*3/uL MPV 9.0 L (9.4-12.3) fL Immature Gran % (Auto) 0.4 (0.0-0.4) % Neut % (Auto) 56.6 (45-73) % Lymph % (Auto) 30.0 (20-40) % [place] % (Auto) 10.1 (2-11) % Eos % (Auto) 1.8 (0-4) % Baso % (Auto) 1.1 (0-2) % Lymph # (Auto) 2.1 (1.2-4.9) X10*3/uL Millard # (Auto) 0.7 (0.1-1.2) X10*3/uL Eos # (Auto) 0.1 (0.0-0.4) X10*3/uL Baso # (Auto) 0.1 (0.0-0.2) X10*3/uL Abs Immat Gran (auto) 0.03 (0.00-0.03) X10*3/uL Absolute Neuts (auto) 4.0 (2.0-8.3) x10*3/uL Absolute Nucleated RBC 0.000 (0.0-0.012) X10*3/uL Nucleated RBC % (auto) 0.0 (0.0-0.2) /100WBC Sodium 140 (135-145) mmol/L Potassium 4.5 D (3.3-5.1) mmol/L Chloride 105 (96-108) mmol/L Carbon Dioxide 25 (22-29) mmol/L Anion Gap 15 (12-20) BUN 13 (9-16) mg/dL Creatinine 0.69 (0.5-1.4) mg/dL Estim Creat Clear Calc 70.0 Estimated GFR > 60 Random Glucose 113 (60-115) mg/dL Calcium 9.2 (8.4-10.2) mg/dL Total Bilirubin 0.5 (0.0-1.0) mg/dL AST 27 (5-31) U/L ALT 14 (0-31) U/L Alkaline Phosphatase 60 (39-117) U/L Troponin I High Sens < 2.7 (<3.5-17.0) ng/L Total Protein 6.1 L (6.5-8.0) g/dL Albumin 3.9 (3.5-5.0) g/dL Urine Color Yellow Urine Appearance Clear Urine pH 7.0 (5.0-9.0) Ur Specific [place] 1.010 (1.005-1.025) Urine Protein Negative (Neg-Trace) mg/dL Urine Glucose (UA) Negative (Negative) mg/dL Urine Ketones Trace (Negative) mg/dL Urine Blood Trace H (Negative) Urine Nitrite Negative (Negative) Ur Leukocyte Esterase Moderate (2+) H (Negative) Urine RBC 0-2 (0-2) /HPF Urine WBC 11-20 H (0-5) /HPF Ur Squamous Epith Cells 6-10 (0-2) /HPF Urine Bacteria None Seen (None Seen) Hyaline Casts 0-2 (0-2) /LPF Medications Administered Discontinued Medications Generic Name Dose Route Start Last Admin Trade Name Freq PRN Reason Stop Dose Admin Cefuroxime Axetil 250 mg 11/24/24 05:57 11/24/24 06:15 Cefuroxime Axetil 250 Mg Tablet PO 11/24/24 05:58 250 mg ONCE ONE Administration Dicyclomine HCl 20 mg 11/24/24 05:51 11/24/24 06:15 Dicyclomine Hcl 10 Mg Capsule PO 11/24/24 05:52 20 mg ONCE ONE Administration Oxycodone HCl 5 mg 11/24/24 06:05 11/24/24 06:15 Oxycodone Hcl Immed Release 5 Mg Tablet PO 11/24/24 06:06 5 mg ONCE ONE Administration Discharge Plan Discharge Clinical Impression: Abdominal pain, Acute UTI Patient Disposition: Home, Self-Care Instructions: Abdominal Pain (ED), Urinary Tract Infection in Older Adults (ED) Additional Instructions: Drink plenty of fluids Take antibiotic as prescribed pain medication as prescribed Follow up with your PCP if not better Prescriptions: New cefuroxime axetil 250 mg tablet 250 mg PO BID 7 Days Qty: 14 0RF tramadol 50 mg tablet 50 mg PO Q8-10H PRN (Reason: pain) Qty: 20 0RF No Action atorvastatin 20 mg tablet 20 mg PO BEDTIME Qty: 90 2RF calcium-mag oxide-vitamin D3 250-125-200 mg-mg-unit Capsule 2 cap PO omega-3 fatty acids-fish oil 684-1,200 mg Capsule,Delayed Release(Dr/Ec) 1 cap PO DAILY cholecalciferol (vitamin D3) [Vitamin D3] 50 mcg (2,000 unit) Capsule 50 mcg PO DAILY ondansetron HCl 4 mg tablet 4 mg PO Q8H Qty: 10 0RF famotidine 40 mg tablet 40 mg PO BEDTIME Qty: 7 0RF bupropion HCl [Wellbutrin SR] 150 mg tablet sustained-release 12 hr 150 mg PO BID Qty: 180 0RF escitalopram oxalate 10 mg tablet 15 mg PO DAILY 90 Days Qty: 135 0RF Print Language: Setswana
[2024-11-24] MEDS: oxyCODONE HCl Immed Release 5 MG TABLET PO (06:15)
[2024-11-24] MEDS: Dicyclomine HCl 10 MG CAPSULE 20 MG PO (06:15)
[2024-11-24] MEDS: cefuroxime axetiL 250 MG TABLET PO (06:15)
[2024-11-24 06:49] VITALS: BP 136/66; PULSE 68; RESP 18; TEMP 36.8; O2SAT 97
== END 2024-11-24 06:51 | disposition home or self-care (01) ==
PROVIDERS: Emergency Provider Internal Medicine; PCP Nurse Practitioner Family
DX: N39.0 Urinary tract infection, site not specified (principal); R10.9 Unspecified abdominal pain; E78.5 Hyperlipidemia, unspecified; J44.9 Chronic obstructive pulmonary disease, unspecified; Z79.02 Long term (current) use of antithrombotics/antiplatelets; Z79.899 Other long term (current) drug therapy; F17.210 Nicotine dependence, cigarettes, uncomplicated
CPT/HCPCS: 36415; 71046; 80053; 81001; 84484; 85025; 87086; 87147; 93005; 99283; 99285

== ENCOUNTER → 2024-11-24 01:08 | Outpatient (BNV) | payer MEDICARE, SELFPAY | PROVIDERS: Emergency Provider Internal Medicine; PCP Nurse Practitioner Family; Visit Provider Internal Medicine | DX: R10.13 Epigastric pain (principal) | CPT/HCPCS: 93010 ==

== ENCOUNTER 2024-11-27 13:31 | Outpatient (AMB) | payer MEDICARE, SELFPAY ==
--- NOTE | 2024-11-27 13:39 | MHC.PC.OV ---
Vital Signs 11/27/24 13:44 Height 5 ft 6 in Weight 124 lb 6 oz BMI 20.1 BP 118/68 Blood Pressure Location Lt brachial Position Sitting Respiration 12 Pulse 78 Pulse Source Pulse Oximeter Temp 97.6 F Temp Source Oral Pulse Oximetry (%) 100 Oxygen Delivery Method Room Air Intake Visit Reasons: ED from [facility] abdominal pain Intake Note: ED [facility] follow up for abdominal px. Patient c/o rash on abdomen since she started the new meds. 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: No Allergies doxycycline Allergy (Severe, Verified 11/27/24 14:11) Itching Medication List - Last Reconciled 11/27/24 by Shirley Kemp, [employer] AGENT-BC atorvastatin 20 mg PO BEDTIME bupropion HCl SR (Wellbutrin SR) 150 mg PO BID calcium-mag oxide-vitamin D3 250-125-200 mg-mg-unit 2 caps PO cefuroxime axetil 250 mg PO BID 7 days cholecalciferol (vitamin D3) (Vitamin D3) 50 mcg PO DAILY escitalopram oxalate 15 mg (1.5 x 10 mg) PO DAILY 90 days famotidine 40 mg PO BEDTIME omega-3 fatty acids-fish oil 684-1,200 mg 1 cap PO DAILY ondansetron HCl 4 mg PO Q8H tramadol 50 mg PO Q8-10H PRN Tobacco use date assessed: 11/27/24 Fall risk assessment: No Falls in past year Last assessed Fall Risk: 11/27/24 Dental Screening Dental Screen Date: 11/27/24 Did you have a dental visit in the last 12 months?: Yes Did you have a dental problem in the last 6 months where you did not have access to dental care?: No Was dental information given to patient?: Patient has dentist HPI HPI Comments History of Present Illness Details 69 y/o F with sigmoid diverticulosis, internal hemorrhoids, hx of tubular adenoma, current smoker, CAD (noted on CT of lung 08/15/23), hyperlidipemia, Lower degenerative thoracic disc disease and sclerotic vertebral endplate arthritis, Overactive bladder, MDD, EZEQUIEL, COPD, SCC Skin cancer, osteopenia s/p R eye retinal tear w/ laser repair 2023 Here today for ED fu [facility] ED visit 11/22/[address]. Sent home w/ supportive care. See CT results below. Returned 11/24/24 with worsening abd pain, Found to have UTI, new meds started New cefuroxime axetil 250 mg tablet 250 mg PO BID 7 Days Qty: 14 0RF tramadol 50 mg tablet 50 mg PO Q8-10H PRN (Reason: pain) Qty: 20 0RF She presents today feeling no better. States the night before her ED visit she had pins and needles in her L shoulder blade/mid upper back area used heating pad, no relief Up all night long Went to ED - Morphine was the only thing that helped, She returned home and took 2 oxycodone at 2 seperate times which provided relief of her ongoing sx. Monday the pain returned to her L shoulder blade and then wrapped around her upper abd, under her breasts It was unrelenting. She returned to the ED and was told of a UTI and given PO ABT. She has been taking these and feels no improvement She developed a rash on her abd that is itchy - unsure from what med as AB, Tramadol and Oxy are new for her. She has no lower abd pain + constipation, no bm in 5 days. Miralax x 2 w/o relief + vomiting this AM Poor appetite and po intake She did not have urinary sx until recently, she feels like she has to go frequently but then cannot go. Denies fever, chills, chest pain, sob. Pain is worse at night. unrelated to po intake. Exam General: Well developed, well nourished, in no acute distress. Appears stated age. Head: Normocephalic, atraumatic. Eyes: Pupils are equal, round and reactive to light and accommodation. Conjunctivae are clear. Scleras nonicteric. Neck: Supple, no thyromegaly. Left AC is a fixed, hard, immobile lymphnode about longterm down the neck. Overlying skin is intact. Lungs: Clear to auscultation bilaterally. No rales, rhonchi or wheeze noted. Good air flow in all hemphill. Heart: Regular rate and rhythm. No murmurs, click, rubs or gallops are noted. Abd: soft, nontender, normoactive bs x 4. No CVAT. Skin: Papular rash scattered to anterior abd. Psych: crying. Plan: ?GI or Cards cause for her sx. Stat Stress test with nuc imaging; prn nitro HIDA scan prn hyoscamine I will contact Dr Strong' office to request visit; she is due for colon. Labs today Stop Cefuroxime;repeat UA today. FU once results are back. Edu on reasons to go to ED for eval and tx. Total time spent caring for the patient today was 70 minutes. This includes time spent before the visit reviewing the chart, time spent during the visit, and time spent after the visit on documentation, reviewing laboratory results, diagnostic imaging, medications, performing a medically necessary evaluation, counseling on diagnoses, care coordination, ordering appropriate tests, ordering appropriate medications, review of tests performed by other providers, reporting test results with the patient, communication with other healthcare providers. [facility] Medical History Nondisplaced fracture of distal end of radius Strain of left wrist Skin cancer Overactive bladder Hyperlipemia Anxiety Depression COPD (chronic obstructive pulmonary disease) Osteoporosis Surgical History H/O oral surgery Hx of colonoscopy Family History Mother High cholesterol Colon cancer Father Cardiovascular disease Sister Breast cancer Social History Household Members: None Housing: House Are you a primary personal care service provider to a significant other at home: No Do you presently have visiting nurse or other home services: No Alcohol intake: current Alcohol intake frequency: 0-2 drinks per day Alcohol type: wine Patient Tobacco Use Status: Current everyday Tobacco user Tobacco use type: Cigarette Cigarette Packs Per Day: 0.5 Cigarettes Per Day: 10.0 e-Cigarette/Vaping Use: Never Used Advance Directives Date on File: 08/31/20 service: No Current occupational status: employed Current occupation: [employer] Cognitive needs: No Hearing needs: Yes (has hearing aid) Vision needs: Yes (wear glasses) Questionnaire Thrive Questionnaire Date Thrive assessed: 09/16/24 I am a: Patient What is your living situation today?: I have a steady place to live Within the past 12 months, did the food you bought not last and you didn't have the money to get more?: Never true Within the past 12 months, did you worry whether your food would run out before you got money to buy more?: Never true Do you have trouble paying for medicines?: No Do you have trouble getting transportation to medical appointments?: No Do you have trouble paying your heating and electricity bill?: No Do you have trouble taking care of your child, family member or friend?: No Do you have trouble with day-to-day activities such as bathing, preparing meals, shopping, managing finances, etc.?: No Are you currently unemployed and looking for a job?: No Are you interested in more education?: No Please select the resources that you would like help with: None Currently or been in a relationship where the following occur: No concerns reported THRIVE Score: 0 EZEQUIEL-7 AMB Questionnaire EZEQUIEL-7 Date EZEQUIEL - 7 assessed: 09/23/24 Source: Developed by Drs. Luis Antonio Cota, Marlyn Stockton, August Díaz and colleagues, with an educational moy from [employer]. Physical exam (Primary Care) Vital Signs: Last Vital Signs Temp 97.6 F 11/27/24 13:44 Pulse 78 11/27/24 13:44 Resp 12 11/27/24 13:44 BP 118/68 11/27/24 13:44 Pulse Ox 100 11/27/24 13:44 Oxygen Delivery Method Room Air 11/27/24 13:44 BMI result Body Mass Index 20.1 Tobacco/Smoking Status: Tobacco use Status Tobacco use date assessed 11/27/24 11/27/24 13:46 Patient Tobacco Use Status Current everyday Tobacco 11/27/24 13:46 Tobacco use type Cigarette 11/27/24 13:46 e-Cigarette/Vaping Use Never Used 11/27/24 13:46 Are you ready to quit: No Tobacco cessation counseling provided: Yes Items discussed: Nicotine replacement, QuitWorks and Other Relapse Prevention: discussed the importance of a supportive environment, discussed extending NRT, discussed negative mood or depression after quitting, weight gain after smoking is common and discussed dietary, exercise and/or lifestyle changes Number of minutes spent counselin CPT code: 54151 - 4-10 Minutes Thrive Assessment: Date of Thrive Assessment Date Thrive assessed 09/16/24 11/27/24 13:46 Currently or been in a relationship where the following occur: No concerns reported Results Reviewed Results Reviewed: [address] [address] Electrocardiograph Report Signed Patient: Sarah Alba MR#: [id number] : 1955 Acct:[id number] Age/Sex: 69 / F ADM Date: 11/24/24 Loc: .ED Attending Dr: Ordering Physician: Ney Valle MD Date of Service: 11/24/24 Procedure(s): ECG 12 lead EKG Accession Number(s): [id number] cc: Ney Valle MD~ Test Reason : EPIGASTRIC PAIN Blood Pressure : */* mmHG Vent. Rate : 70 BPM Atrial Rate : 70 BPM P-R Int : 140 ms QRS Dur : 92 ms QT Int : 392 ms P-R-T Axes : 74 29 59 degrees QTcB Int : 423 ms Normal sinus rhythm Normal ECG When compared with ECG of 22-Nov-2024 07:54, No significant change was found Referred By: Generic ED Physician Electronically Signed By: EUNICE LING [address] [address] [address] Scan Report Signed Patient: Sarah Alba MR#: [id number] : 1955 Acct:[id number] Age/Sex: 69 / F ADM Date: 11/22/24 Loc: .ED Attending Dr: Ordering Physician: Leslie Kim PA-C Date of Service: 11/22/24 Procedure(s): CT abdomen pelvis w IV con Accession Number(s): [id number] cc: Leslie Kim PA-C; Shirley Kemp [facility]-~ Report Number: [id number]: Total DLP = 307.00 mGy-cm EXAMINATION: CT ABDOMEN AND PELVIS WITH CONTRAST CLINICAL INFORMATION: Epigastric pain. COMPARISON: No prior. TECHNIQUE: Multidetector volumetric images were obtained from the superior aspect of the liver through the pubic symphysis following administration 85 mL of Omnipaque 350 intravenous contrast. Sagittal and coronal reformatted images were obtained on the technologist's workstation. Oral contrast: No This CT examination was performed using dose optimization techniques as appropriate, variously including the following: *Automated exposure control *Adjustment of mA and/or kV according to patient size (this includes techniques or standardized protocols for targeted exams where dose is matched to indication/reason for exam; i.e. extremities or head) *Use of iterative reconstruction technique FINDINGS: LUNG BASES: The imaged lung bases are grossly clear. There is no effusion or consolidation. The GE junction is grossly normal. The heart size is normal. LIVER, GALLBLADDER, AND BILIARY TREE: The liver is normal in size, shape, and attenuation. No focal hepatic lesion or biliary ductal dilatation is present. Mild focal fatty infiltration abutting the falciform ligament. The gallbladder is unremarkable with no evidence of radiopaque gallstones, gallbladder wall thickening, or obvious pericholecystic inflammatory changes. There are two 3 mm tiny enhancing foci, mural based, likely polyps. PANCREAS: Unremarkable. SPLEEN: Unremarkable. ADRENAL GLANDS: Mild bilateral hyperplasia. KIDNEYS AND URETERS: The kidneys are normal in size, shape, and attenuation. No hydronephrosis, hydroureter, or calculi seen. No perinephric stranding. BLADDER: Unremarkable. GASTROINTESTINAL TRACT: The stomach and duodenum appear grossly normal. The small bowel demonstrates normal caliber, with some mild mural enhancement, entirely nonspecific but may relate to mild enteritis. There is no bowel obstruction or caliber transition noted. The terminal ileum has an unremarkable appearance. A normal appendix is visualized. The colon demonstrates mild retained fecal material, and a small amount of diffuse circumferential wall thickening, which is seen throughout. The rectum is normal. ABDOMINAL WALL: No significant hernia is appreciated. LYMPH NODES: Normal. VASCULAR: Moderate to severe atheromatous calcification of the aorta and iliac arteries, without aneurysm. PELVIC VISCERA: The uterus and adnexa are unremarkable. There are prominent venous structures in the adnexal regions. OSSEOUS STRUCTURES: There is a mild right convex scoliosis of the lumbar spine centered at L2. There are mild degenerative changes. No suspicious lytic or blastic bone lesions. CT/CT abdomen pelvis w IV con IMPRESSION: 1. Mild diffuse mural wall thickening of the colon, which although subtle may relate to a mild colitis. Correlate for signs and symptoms. 2. Mild nonspecific mucosal enhancement of the small bowel, could be within normal limits although mild enteritis is also a consideration. 3. Prominent vascular structures in the adnexal regions, nonspecific but raising the possibility of pelvic congestion syndrome. 4. Moderate to extensive calcific atheromatous disease of the aorta and iliac vessels without aneurysm. 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 transplanted heart: [place] heart Mixed hyperlipidemia E78.2 Hyperlipidemia type: mixed hyperlipidemia CPT Codes [facility] OUTPT/OFFICE VIS - G2212 Additional Codes Vital Signs *Quality* - CPT code: 44360 - 4-10 Minutes ([id number]) Assessment & Plan Assessment & Plan (1) Hospital discharge follow-up: Code(s): Z09 - Encounter for follow-up examination after completed treatment for conditions other than malignant neoplasm (2) Shoulder pain: Code(s): M25.519 - Pain in unspecified shoulder Category: Medical Qualifiers: Chronicity: acute Laterality: left Qualified Code(s): M25.512 - Pain in left shoulder (3) Epigastric pain: Code(s): R10.13 - Epigastric pain Category: Medical (4) Tobacco dependence: Code(s): F17.200 - Nicotine dependence, unspecified, uncomplicated Category: Medical (5) CAD (coronary artery disease): Comment: (noted on CT of lung 08/15/[address] & CT abd 11/2024) Currently on statin, LDL goal less than 70, smoking cessation Code(s): I25.10 - Atherosclerotic heart disease of [place] coronary artery without angina pectoris Category: Medical Qualifiers: Associated angina: without angina Coronary Disease-Associated Artery/Lesion type: [place] artery [place] vs. transplanted heart: [place] heart Qualified Code(s): I25.10 - Atherosclerotic heart disease of [place] coronary artery without angina pectoris (6) Epigastric pain: Code(s): R10.13 - Epigastric pain Category: Medical (7) Tobacco dependence: Code(s): F17.200 - Nicotine dependence, unspecified, uncomplicated Category: Medical (8) CAD (coronary artery disease): Comment: (noted on CT of lung 08/15/[address] abd 11/2024) Currently on statin, LDL goal less than 70, smoking cessation Code(s): I25.10 - Atherosclerotic heart disease of [place] coronary artery without angina pectoris Category: Medical Qualifiers: Associated angina: without angina Coronary Disease-Associated Artery/Lesion type: [place] artery [place] vs. transplanted heart: [place] heart Qualified Code(s): I25.10 - Atherosclerotic heart disease of [place] coronary artery without angina pectoris (9) Hyperlipemia: Code(s): E78.5 - Hyperlipidemia, unspecified Category: Medical Qualifiers: Hyperlipidemia type: mixed hyperlipidemia Qualified Code(s): E78.2 - Mixed hyperlipidemia Plan . Orders: Orders NM hepatobiliary w pharm Today M25.519 - Pain in unspecified shoulder, R10.13 - Epigastric pain CA stress test Today E78.2 - Mixed hyperlipidemia, F17.200 - Nicotine dependence, unspecified, uncomplicated, I25.10 - Atherosclerotic heart disease of [place] coronary artery without angina pectoris, R10.13 - Epigastric pain Bilirubin Total Today E78.2 - Mixed hyperlipidemia, R10.13 - Epigastric pain Bilirubin Direct Today E78.2 - Mixed hyperlipidemia, R10.13 - Epigastric pain Complete Blood Count no Diff Today E78.2 - Mixed hyperlipidemia, R10.13 - Epigastric pain CRP High Sensitivity Today E78.2 - Mixed hyperlipidemia, R10.13 - Epigastric pain NM cardiolite stress test Today E78.2 - Mixed hyperlipidemia, F17.200 - Nicotine dependence, unspecified, uncomplicated, I25.10 - Atherosclerotic heart disease of [place] coronary artery without angina pectoris, R10.13 - Epigastric pain UA CC w/rflx Micro + Cult Today E78.2 - Mixed hyperlipidemia, R10.13 - Epigastric pain Amylase Today E78.2 - Mixed hyperlipidemia, R10.13 - Epigastric pain Lipase Today E78.2 - Mixed hyperlipidemia, R10.13 - Epigastric pain Medications: New nitroglycerin do not exceed 3 doses per episode 0.3 mg sublingual Q5M PRN 30 tabs 0RF chest pain hyoscyamine sulfate 0.125 mg PO BID-QID PRN 60 tabs 0RF dyspepsia
[2024-11-27 13:44] VITALS: BP 118/68; PULSE 78; RESP 12; TEMP 36.4; O2SAT 100; BMI 20.1
--- OUTSIDE RECORDS SUMMARY | 2024-11-27 15:16 | XMS_ITS | Continuity of Care Document ---
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 [address], [place], [address], [place]. tel:[phone] Referring Provider: Darren Puckett OD, [address], [place], [address]. tel:[phone] [facility], [address], [place], [place], [id number], [place] tel:[phone] [facility] No Information Lavern Banks. [address], [place], [address], [place]. tel:[phone] Family History Family Member Type Diagnosis Age At Onset No Information Payers Payer name Insurance type Covered republican ID Authoriza tion(s) [facility] BL [id number] Social History Type Description Quantity Date [...]
== END 2024-11-27 15:05 | disposition home or self-care (01) ==
LOC: HO.HMCFM 13:32
PROVIDERS: PCP Nurse Practitioner Family; Visit Provider Nurse Practitioner Family
DX: M25.512 Pain in left shoulder (principal); R10.13 Epigastric pain; F17.210 Nicotine dependence, cigarettes, uncomplicated; Z09 Encounter for follow-up examination after completed treatment for conditions other than malignant neoplasm; I25.10 Atherosclerotic heart disease of native coronary artery without angina pectoris; E78.2 Mixed hyperlipidemia

== ENCOUNTER → 2024-11-27 13:31 | Outpatient (BNVA) | payer MEDICARE, SELFPAY | PROVIDERS: PCP Nurse Practitioner Family; Visit Provider Nurse Practitioner Family | DX: Z13.89 Encounter for screening for other disorder (principal) ==

== ENCOUNTER 2024-11-27 14:49 | Outpatient (REF) | payer MEDICARE, SELFPAY ==
[2024-11-27 18:33] LABS: Hemoglobin 13.8 g/dl (12.0-16.0); Mean Corpuscular HGB Conc 33.7 g/dl (31.0-35.0); Mean Corpuscular Hemoglobin 31.9 pg (27.0-33.0); Mean Corpuscular Volume 94.9 fL (80.0-98.0); Mean Platelet Volume 10.1 fL (9.4-12.3); Platelet Count 308 X10*3/uL (160-400); Red Blood Count 4.32 X10*6/uL (4.20-5.50); Red Cell Distribution Width 12.2 % (11.0-16.0); White Blood Count 9.4 X10*3/uL (4.8-10.8)
[2024-11-27 18:34] LABS: Appearance Urine Clear; Color Urine Dark Yellow; Glucose Urine UA Negative (Negative); Leukocyte Esterase Urine Negative (Negative); Nitrite Urine Negative (Negative); Urine Blood Negative (Negative); Urine Ketones 15 mg/dL (Negative); Urine Protein Negative (Neg-Trace)
[2024-11-27 18:39] LABS: Amylase 52 U/L (28-100); Bilirubin Direct 0.2 mg/dL (0.0-0.5); Bilirubin Total 0.7 mg/dL (0.0-1.0); Lipase 25 U/L (8-78)
[2024-11-28 03:24] LABS: CRP High Sensitivity 1.6 mg/L
== END 2024-11-27 14:50 | disposition home or self-care (01) ==
LOC: HO.WFDLDS 14:49
PROVIDERS: Visit Provider Nurse Practitioner Family
DX: Z09 Encounter for follow-up examination after completed treatment for conditions other than malignant neoplasm (principal); R10.13 Epigastric pain; M25.512 Pain in left shoulder; I25.10 Atherosclerotic heart disease of native coronary artery without angina pectoris; E78.2 Mixed hyperlipidemia; F17.200 Nicotine dependence, unspecified, uncomplicated; R93.3 Abnormal findings on diagnostic imaging of other parts of digestive tract; K59.00 Constipation, unspecified; Z79.899 Other long term (current) drug therapy
CPT/HCPCS: 36415; 81003; 82150; 82247; 82248; 83690; 85027; 86141; 99212

== ENCOUNTER 2024-12-02 15:46 | Outpatient (AMB) | payer MEDICARE, SELFPAY ==
--- NOTE | 2024-12-02 16:03 | A.OFFPC_ITS ---
Intake Visit Reasons: fu abd pain Intake Note: Telehealth Follow up on abd px Gas Dispatcher Required: No Allergies doxycycline Allergy (Severe, Verified 12/02/24 17:00) Itching Medication List - Last Reconciled 12/02/24 by FRED ClementP- atorvastatin 20 mg PO BEDTIME bupropion HCl SR (Wellbutrin SR) 150 mg PO BID calcium-mag oxide-vitamin D3 250-125-200 mg-mg-unit 2 caps PO cholecalciferol (vitamin D3) (Vitamin D3) 50 mcg PO DAILY escitalopram oxalate 15 mg (1.5 x 10 mg) PO DAILY 90 days famotidine 40 mg PO BEDTIME hyoscyamine sulfate 0.125 mg PO BID-QID PRN nitroglycerin 0.3 mg sublingual Q5M PRN omega-3 fatty acids-fish oil 684-1,200 mg 1 cap PO DAILY omeprazole 40 mg PO DAILY ondansetron HCl 4 mg PO Q8H tramadol 50 mg PO Q8-10H PRN Tobacco use date assessed: 12/02/24 Dental Screening Dental Screen Date: 11/27/24 HPI HPI Comments History of Present Illness Details 69 y/o F with sigmoid diverticulosis, in ternal hemorrhoids, hx of tubular adenoma, current smoker, CAD (noted on CT of lung 08/15/23), hyperlidipemia, Lower degenerative thoracic disc disease and sclerotic vertebral endplate arthritis, Overactive bladder, MDD, EZEQUIEL, COPD, SCC Skin cancer, osteopenia s/p R eye retinal tear w/ laser repair 2023 History of Present Illness - The patient is a 69-year-old female pr esenting with follow-up concerns for abdominal pain and related gastrointestinal symptoms. - Reports acute, episodic abdominal pain in the right upper quadrant, often nocturnal and prolonged. - Recent ultrasound and CAT scan showed no acute abnormalities; the pancreatic tail was poorly defined at ED visit 11/30/24 at [facility], however she had cT imaging done that showed normal pancreas. - Scheduled a HIDA scan to assess gallbl adder function tomorrow. - Managed constipation with Senokot and previously MiraLax; recent sodium decrease noted (132). Stopped miralax. BM on Monday. Cont to be slightly constipated; urinary sx resolved. - Exhibits symptoms of GERD and uses Wendie losec; advised to sleep propped up. - Prior urine test indicated dehydration ; hydration efforts ongoing. - Current pain relief via tramadol and H yoscyamine, taking TID. Will increase to QID. has not used during attack . Did trial nitro x 1 without relief. - Anticipates a stress test, with author joel pending. FU with Dr Strong pending. Review of Systems - Gastrointestinal: Reports constipation , epigastric pain, nighttime pain; denies nausea, vomiting. - Genitourinary: Denies significant urin rigo issues; reported dehydration. - Cardiac: Denies chest pain; awaiting s tress test. - General: Reports discomfort and altere d bowel habits; denies fever. Results - Labs: Normal amylase and lipase levels ; slight decrease in sodium. - Imaging: Prior ultrasound showed a poo rly defined pancreatic tail. No acute abnormalities in CAT scan. - Tests: Urine test indicating dehydrati on (ketones). Assessment and Plan 1. Constipation - Senokot and Colace. - Stop MiraLax; monitor sodium. 2. GERD - Continue Prilosec. - Sleep propped up. 3. Epigastric Pain/suspected biliary col ic - HIDA scan. - Manage with Hyoscyamine. 4. Dehydration - Increase fluid intake. - Monitor electrolytes. 5. Await stress test results FU once imaging complete, sooner PRN Telehealth Attestation The clinical visit was conducted via telehealth. All information has been accurately documented based on the conversation with the patient. The patient has been explained that this is an interactive (audio/video) telehealth encounter and what that consists of. The patient understands and wishes to proceed. Haolianluo platform was used. Total time spent caring for the patient today was 38 minutes. This includes time spent before the visit reviewing the chart, time spent during the visit, and time spent after the visit on documentation, reviewing laboratory results, diagnostic imaging, medications, performing a medically necessary evaluation, counseling on diagnoses, care coordination, ordering appropriate tests, ordering appropriate medications, review of tests performed by other providers, reporting test results with the patient, communication with other healthcare providers. Previous visit last week: She presents today feeling no better. States the night before her ED visit she had pins and needles in her L shoulder blade/mid upper back area used heating pad, no relief Up all night long Went to ED - Morphine was the only thing that helped, She returned home and took 2 oxycodone at 2 seperate times which provided relief of her ongoing sx. Monday the pain returned to her L shoulder blade and then wrapped around her upper abd, under her breasts It was unrelenting. She returned to the ED and was told of a UTI and given PO ABT. She has been taking these and feels no improvement She developed a rash on her abd that is itchy - unsure from what med as AB, Tramadol and Oxy are new for her. She has no lower abd pain + constipation, no bm in 5 days. Miralax x 2 w/o relief + vomiting this AM Poor appetite and po intake She did not have urinary sx until recently, she feels like she has to go frequently but then cannot go. Denies fever, chills, chest pain, sob. Pain is worse at night. unrelated to po intake. Exam General: Well developed, well nourished, in no acute distress. Appears stated age. Head: Normocephalic, atraumatic. Eyes: Pupils are equal, round and reactive to light and accommodation. Conjunctivae are clear. Scleras nonicteric. Neck: Supple, no thyromegaly. Left AC is a fixed, hard, immobile lymphnode about custodial down the neck. Overlying skin is intact. Lungs: Clear to auscultation bilaterally. No rales, rhonchi or wheeze noted. Good air flow in all hemphill. Heart: Regular rate and rhythm. No murmurs, click, rubs or gallops are noted. Abd: soft, nontender, normoactive bs x 4. No CVAT. Skin: Papular rash scattered to anterior abd. Psych: crying. Plan: ?GI or Cards cause for her sx. Stat Stress test with nuc imaging; prn nitro HIDA scan prn hyoscamine I will contact Dr Strong' office to request visit; she is due for colon. Labs today Stop Cefuroxime;repeat UA today. FU once results are back. Edu on reasons to go to ED for eval and tx. [facility] Medical History Nondisplaced fracture of distal end of radius Strain of left wrist Skin cancer Overactive bladder Hyperlipemia Anxiety Depression COPD (chronic obstructive pulmonary disease) Osteoporosis Surgical History H/O oral surgery Hx of colonoscopy Family History Mother High cholesterol Colon cancer Father Cardiovascular disease Sister Breast cancer Social History Household Members: None Both parents involved: No Caregiver staying overnight: No Housing: House Are you a primary vp care management to a significant other at home: No Do you presently have visiting nurse or other home services: No 75 years or older and lives alone: No Alcohol intake: current Alcohol intake frequency: 0-2 drinks per day Alcohol type: wine Patient Tobacco Use Status: Current everyday Tobacco user Tobacco use type: Cigarette Cigarette Packs Per Day: 0.5 Cigarettes Per Day: 10.0 e-Cigarette/Vaping Use: Never Used Advance Directives Date on File: 08/31/20 service: No Current occupational status: employed Current occupation: [employer] Cognitive needs: No Hearing needs: Yes (has hearing aid) Vision needs: Yes (wear glasses) Questionnaire Thrive Questionnaire Date Thrive assessed: 09/16/24 EZEQUIEL-7 AMB Questionnaire EZEQUIEL-7 Date EZEQUIEL - 7 assessed: 09/23/24 Source: Developed by Drs. Luis Antonio Cota, Marlyn Stockton, August Díaz and colleagues, with an educational moy from [employer]. Physical exam (Primary Care) Tobacco/Smoking Status: Tobacco use Status Tobacco use date assessed 12/02/24 12/02/24 16:05 Patient Tobacco Use Status Current everyday Tobacco 12/02/24 16:05 Tobacco use type Cigarette 12/02/24 16:05 e-Cigarette/Vaping Use Never Used 12/02/24 16:05 Thrive Assessment: Date of Thrive Assessment Date Thrive assessed 09/16/24 12/02/24 16:05 Telehealth Telehealth Telehealth Platform: [facility] Location of provider rendering services: practice address Location of patient: address on file Patient Identification confirmed using: Name, : Yes Telehealth method: voice only Patient verbally consented to treatment: Yes Patient verbally consented to billing insurance company: Yes Patient informed of any privacy concerns related to visit: Yes Minutes spent on Phone/Video with Pt.: 19 Coding Level of Care Code Tele Est Pt Level 4 (08692) Complex EM visit Add On G2211 Diagnoses Hospital discharge follow-up Z09 Epigastric pain R10.13 Constipation, unspecified constipation type K59.00 Constipation type: unspecified constipation type Assessment & Plan Assessment & Plan (1) Hospital discharge follow-up: Code(s): Z09 - Encounter for follow-up examination after completed treatment for conditions other than malignant neoplasm (2) Epigastric pain: Code(s): R10.13 - Epigastric pain Category: Medical (3) Constipation: Code(s): K59.00 - Constipation, unspecified Category: Medical Qualifiers: Constipation type: unspecified constipation type Qualified Code(s): K59.00 - Constipation, unspecified Plan . Medications: New docusate sodium (Colace) 100 mg PO BID 180 caps 1RF Refilled hyoscyamine sulfate 0.125 mg PO BID-QID PRN 60 tabs 0RF dyspepsia
--- OUTSIDE RECORDS SUMMARY | 2024-12-02 17:39 | XMS_ITS | Continuity of Care Document ---
Author Organization [facility] Address [address] [place] [address] Phone Care Team Providers Care College Basketball Coach Name Role Phone [place] KRISSYDarren Unavailable Unavailable Allergies, Adverse Reactions, Alerts [...] Diagnoses Date Provider Providers Copied on Encounter [facility], [address], [place], [place], [id number], [place] tel:[phone] [facility] problem (chief complaint) Foreign body in conjunctival sac, left eye, init encntr Lavern Banks. [address], [place], [address], [place]. tel:[phone] Referring Provider: Darren Puckett OD, [address], [place], [address]. tel:[phone] [facility], [address], [place], [place], [address], [place] tel:[phone] [facility] No Information Lavern Banks. [address], [place], [address], [place]. tel:[phone] Family History Family Member Type Diagnosis Age At Onset No Information Payers Payer name Insurance type Covered republican ID Authoriza tion(s) [facility] BL [id number] Social History Type Description Quantity Date [...]
== END 2024-12-02 17:17 | disposition home or self-care (01) ==
LOC: HO.HMCFM 15:46
PROVIDERS: PCP Nurse Practitioner Family; Visit Provider Nurse Practitioner Family
DX: R10.13 Epigastric pain (principal); K59.00 Constipation, unspecified; Z09 Encounter for follow-up examination after completed treatment for conditions other than malignant neoplasm

== ENCOUNTER → 2024-12-02 15:46 | Outpatient (BNVA) | payer MEDICARE, SELFPAY | PROVIDERS: PCP Nurse Practitioner Family; Visit Provider Nurse Practitioner Family | DX: Z13.89 Encounter for screening for other disorder (principal) ==

== ENCOUNTER → 2024-12-03 07:56 | Outpatient (REF) | payer MEDICARE, SELFPAY ==
--- NOTE | ~2024-12-03 | NM_ITS ---
EXAMINATION: NM BILIARY TRACT CLINICAL INFORMATION: Unspecified shoulder pain and abdominal pain. COMPARISON: CT abdomen and pelvis with IV contrast 11/22/2024 TECHNIQUE: Following intravenous administration of 5 mCi of technetium 99m mebrofenin, imaging over right upper quadrant was obtained up to 56 minutes. At 60 minutes 1 mcg of CCK was administered slowly over 3 minutes and imaging obtained over 30 minutes. FINDINGS: There is normal hepatic uptake without enlargement or focal defect. CBD is visualized after 60 minutes on post-CCK images. Small bowel is visualized by 21 minutes post CCK injection. There is normal gallbladder contraction with gallbladder ejection fraction measuring 3% at 10 minutes, 33% at 20 minutes and 85% at 30 minutes. NM/NM hepatobiliary w pharm IMPRESSION: Normal hepatic uptake. Patent cystic duct and CBD. Normal gallbladder ejection fraction of 85% at 30 minutes. Electronically signed by: Luis Alberto Stanley MD 12/03/2024 11:03 AM EDT
--- OUTSIDE RECORDS SUMMARY | 2024-12-03 07:59 | XMS_ITS | Continuity of Care Document ---
Author Organization [facility] Address [address] [place] [address] Phone Care Team Providers Care Automobile Sales Representative Name Role Phone [place] KRISSYDarren Unavailable Unavailable Allergies, Adverse Reactions, Alerts [...] Diagnoses Date Provider Providers Copied on Encounter [facility], [address], [place], [place], [address], [place] tel:[phone] [employer] [facility] problem (chief complaint) Foreign body in conjunctival sac, left eye, init encntr Lavern Banks. [address], [place], [address], [place]. tel:[phone] Referring Provider: Darren Puckett OD, [address], [place], [address]. tel:[phone] [facility], [address], [place], [place], [address], [place] tel:[phone] [facility] No Information Lavern Banks. [address], [place], [address], [place]. tel:[phone] Family History Family Member Type Diagnosis Age At Onset No Information Payers Payer name Insurance type Covered green party ID Authoriza tion(s) [facility] BL [id number] Social History Type Description Quantity Date [...]
== END ==
LOC: HO.NUCMED 07:56
PROVIDERS: PCP Nurse Practitioner Family; Visit Provider Nurse Practitioner Family
DX: R10.13 Epigastric pain (principal); M25.519 Pain in unspecified shoulder
CPT/HCPCS: 78227; A9537; J2805

== ENCOUNTER → 2024-12-03 07:57 | Outpatient (BNV) | payer MEDICARE, SELFPAY | PROVIDERS: PCP Nurse Practitioner Family; Visit Provider Radiology Diagnostic Radiology | DX: R10.9 Unspecified abdominal pain (principal); M25.519 Pain in unspecified shoulder | CPT/HCPCS: 78227 ==

== ENCOUNTER → 2024-12-18 07:49 | Outpatient (REF) | payer MEDICARE, SELFPAY ==
--- OUTSIDE RECORDS SUMMARY | 2024-11-19 10:15 | XMS_ITS | Continuity of Care Document ---
Author Organization [facility] Address [address] [place] [address] Phone Care Team Providers Care Reservoir Engineering Manager Name Role Phone [place] KRISSYDarren Unavailable Unavailable Allergies, Adverse Reactions, Alerts [...] ONCE DAILY FOR 2 DAYS - Active methylprednisolone 4 mg tablets in a dose pack TAKE BY MOUTH DIRECTED ON INSIDE OF PACKAGE - Active fluconazole 150 mg tablet TAKE 1 TABLET BY MOUTH ONCE DAILY - Active doxycycline hyclate 100 mg tablet - Active amoxicillin 875 mg tablet TAKE [...] Diagnoses Date Provider Providers Copied on Encounter [facility], [address], [place], [place], [id number], [place] tel:[phone] [facility] problem (chief complaint) Foreign body in conjunctival sac, left eye, init encntr Lavern Banks. [address], [place], [address], [place]. tel:[phone] Referring Provider: Darren Puckett OD, [address], [place], [address]. tel:[phone] [facility], [address], [place], [place], [address], [place] tel:[phone] [facility] No Information Lavern Banks. [address], [place], [address], [place]. tel:[phone] Family History Family Member Type Diagnosis Age At Onset No Information Payers Payer name Insurance type Covered republican ID Authoriza tion(s) [facility] BL [id number] Social History Type Description Quantity Date [...]
--- NOTE | ~2024-12-18 | NM_ITS ---
EXERCISE MYOCARDIAL PERFUSION STUDY INDICATION: Atherosclerotic cardiovascular disease to evaluate for myocardial ischemia TECHNIQUE: The patient was brought in for an exercise perfusion study on December 25, 2024. Patient performed exercise as per [place] protocol and was injected 40 mCi of sestamibi once target heart rate was achieved. Images were obtained using the SPECT gamma camera interlaced with the gating device. Images were obtained in supine position. Resting perfusion study was performed on December 26, 2024. Patient was administered 40 mCi of sestamibi intravenously at rest. Images were then obtained in supine position. Images obtained without without CT attenuation. Total DLP 110 mGy-cm Images were processed with the software and compared side to side in short axis, horizontal long axis and vertical long axis views. FINDINGS: Raw images were reviewed The stress perfusion study showed nonattenuated images show some thinning of the basal septum of the LV myocardium. Remainder of the LV myocardium is normally perfused. Attenuated corrected images show normal uptake of radiotracer in all segments of the LV myocardium.. The gated study shows normal LV systolic function with calculated LVEF of 55%. LV cavity is normal in size. The gated study shows normal systolic wall thickening and contraction of segments. Resting study shows nonattenuated images show mildly reduced uptake in the inferoseptal wall and basal and mid inferior wall of the LV myocardium most likely due to subdiaphragmatic attenuation interfering with myocardial uptake. Gating at rest reveals normal systolic wall motion with ejection fraction at 57%. The findings are consistent with normal myocardial perfusion. NM/NM cardiolite stress test IMPRESSION: 1. Myocardial perfusion imaging study shows normal myocardial perfusion. 2. Gated LVEF is 55%. 3. Transient ischemic dilatation not present. EKG revealed borderline ischemic changes. Electronically signed by: Dmitriy Claudio MD 12/26/2024 04:40 PM EDT
--- OUTSIDE RECORDS SUMMARY | 2024-12-18 07:51 | XMS_ITS | Patient Health Record ---
Author Organization [facility] Address [address] [place] [address] Care Team Providers Care Sighter Name Role Phone Nguyen Dewitt NP Primary Care Provider Luis Antonio Pacheco [phone] Results Component Value Reference Range Notes NM hepatobiliary w pharm (No t yet reviewed by provider) Interpretation: Performing Lab: Notes/Report: [address] [place] [address] Nuclear Medicine Report Signed Patient: Florentin Alba MR#: [id number] : 1955 Acct:[id number] Age/Sex: 69 / F ADM Date: 12/03/24 Loc: PO Attending Dr: Shirley DÍAZ Ordering Physician: Shirley Kemp Date of Service: 12/03/24 Procedure(s): NM hepatobiliary w pharm Accession Number(s): [id number] cc: Shirley Kemp; Luis Antonio Strong MD EXAMINATION: NM BILIARY TRACT CLINICAL INFORMATION: Unspecified shoulder pain and abdominal pain. COMPARISON: CT abdomen and pelvis with IV contrast 11/22/2024 TECHNIQUE: Following intravenous administration of 5 mCi of technetium 99m mebrofenin, imaging over right upper quadrant was obtained up to 56 minutes. At 60 minutes 1 mcg of CCK was administered slowly over 3 minutes and imaging obtained over 30 minutes. FINDINGS: There is normal hepatic uptake without enlargement or focal defect. CBD is visualized after 60 minutes on post-CCK images. Small bowel is visualized by 21 minutes post CCK injection. There is normal gallbladder contraction with gallbladder ejection fraction measuring 3% at 10 minutes, 33% at 20 minutes and 85% at 30 minutes. NM/NM hepatobiliary w pharm IMPRESSION: Normal hepatic uptake. Patent cystic duct and CBD. Normal gallbladder ejection fraction of 85% at 30 minutes. 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: [facility] Reason For Referral No Information Medications Medication SIG (Take, Route, Frequency, Duration) Notes Start Date End Date Status Coral Msswlhi-Ombutneuy-Zpc D 250-125-200 MG-MG-UNIT 2 capsules with a meal Orally Once a day for 30 day(s) Active Vitamin D 50 MCG (2000 UT) 1 tablet Oral ly Once a day for 30 day(s) Active Incruse Ellipta 62.5 MCG/INH 1 puff Inhalation Once a day Active Madison 3 1000 MG 1 capsule Orally Onc e a day for 30 day(s) Active Simvastatin 20 MG 1 tablet in the even ing Oral Once a day Active Sertraline HCl 50 MG 1 tablet Oral Once a day Active buPROPion HCl ER (SR) 150 MG 1 tablet in the morning Oral twice a day Active Immunizations Vaccine Route Administration Date Status Comme nts Influenza Unknown 07/03/2019 Refused Social History Tobacco Use: Social History Observation Description Date Details (start date - stop date) Current Smoker NA - NA Tobacco Use/Smoking Question Answer Notes Patient is a current smoker How often do you smoke cigarettes? every day How many cigarettes a day do you smoke? 6-10 How soon after you wake up d o you smoke your first cigarette? 6-30 minutes Are you interested in quitting? Thinking about q uitting Alcohol Screen Question Answer Notes Did you have a drink contain ing alcohol in the past year? Yes How often did you have a dri nk containing alcohol in the past year? Monthly or less (1 point) How many drinks did you have on a typical day when you were drinking in the past year? 1 or 2 drinks (0 point) How often did you have 6 or more drinks on one occasion in the past year? Never (0 point) Points 1 Interpretation Negative Section Notes: Smoker; 4 glasses of wine pe r week Smoker 1/2 ppd; 4 glasses of wine per week Problems Problem Type SNOMED Code ICD Code Onset Dates Problem Status W/U Status Risk Notes Problem 399582176 Encounter for screening for malignant neoplasm of colon (Z12.11) Active confirmed Problem 256475920 History of adenomatous polyp of colon (Z86.010) Active confirmed Problem [id number] Preprocedural examination (Z01.818) Active confirmed Encounters Encounter Location Date Provider Diagnosis [facility] [address] [place] [address] 12/06/2024 Luis Antonio Strong Plan Of Treatment Pending Test Test Name Order Date NM hepatobiliary w pharm 12/03/2024 Future Test Test Name Order Date COLONOSCOPY 05/01/2013 COLONOSCOPY 07/03/2019 Next Appt Details Provider Name:Luis Antonio Strong , 02/06/2025 09:40:00 AM, [address], [address], [place], [address], Insurance Providers Payer Name Payer Address Payer Phone Subscriber Number Group Number Insured Name Patient Relationship to Insured Coverage Start Date Coverage End Date [employer] [place] [address] [address] [place] [address] [id number] FLORENTIN ALBA Self - patient is the insured Medical (General) History Medical History History ICD Code Screening Colonoscopy 2007--1 tubular adenoma removed--mild sigmoid diverticulosis; neg. colonoscopy in 07/2013 Osteoporosis COPD Denies UT,DM,CVA,renal disease Depression/anxiety Over-active bladder Hyperlipidemia Surgical History Surgery Date(Month/Year) Oral surgery
--- NOTE | 2024-12-18 07:52 | CA_ITS ---
Acquisition Time: 2024-12-18 08:08:43 Total Exercise Time: 00:06:50 Test Indications: CAD CP Medications: ATORVASTATIN BUPROPION CEFUROXIME ESCITALOPRAM FAMOTIDINE Protocol: PRANAY Max HR: 141 BPM 93% of Pred: 151 BPM Max BP: 128/70 mmHG Max Work Load: 8.2 METS Exercise stress test with exercise 6 mins 50 sces of Pranay Protocol, achieving 92% MPHR, with reports of severe SOB, no chest pain, with frequent PACs, with normotensive response to exercise. Without any EKG changes meeting criteria for ischemia. In recovery, breathing returned to baseline. Nuclear images pending. Test reviewed with Dr. Claudio. Referred By: Shirley Kemp Electronically Signed By: Moose Leon
== END ==
LOC: HO.CARD 07:49
PROVIDERS: PCP Nurse Practitioner Family; Visit Provider Nurse Practitioner Family
DX: I25.10 Atherosclerotic heart disease of native coronary artery without angina pectoris (principal); R10.13 Epigastric pain; E78.2 Mixed hyperlipidemia; F17.200 Nicotine dependence, unspecified, uncomplicated
CPT/HCPCS: 78452; 93017; A9500

== ENCOUNTER → 2024-12-18 07:52 | Outpatient (BNV) | payer MEDICARE, SELFPAY | PROVIDERS: PCP Nurse Practitioner Family | DX: R06.02 Shortness of breath (principal); I49.1 Atrial premature depolarization | CPT/HCPCS: 78452; 93016; 93018 ==

== ENCOUNTER 2024-12-30 15:24 | Outpatient (AMB) | payer MEDICARE, SELFPAY ==
--- OUTSIDE RECORDS SUMMARY | 2024-11-19 10:15 | XMS_ITS | Continuity of Care Document ---
Author Organization [facility] Address [address] [place] [address] Phone Care Team Providers Care Commercial Sales Director Name Role Phone [place] KRISSYDarren Unavailable Unavailable Allergies, Adverse Reactions, Alerts [...] Diagnoses Date Provider Providers Copied on Encounter [facility], [address], [place], [place], [address], [place] tel:[phone] [email or web address] problem (chief complaint) Foreign body in conjunctival sac, left eye, init encntr Lavern Banks. [address], [place], [address], [place]. tel:[phone] Referring Provider: Darren Puckett OD, [address], [place], [address]. tel:[phone] [facility], [address], [place], [place], [address], [place] tel:[phone] [facility] No Information Lavern Banks. [address], [place], [address], [place]. tel:[phone] Family History Family Member Type Diagnosis Age At Onset No Information Payers Payer name Insurance type Covered democrat ID Authoriza tion(s) [facility] BL [id number] Social History Type Description Quantity Date [...]
--- NOTE | 2024-12-30 13:13 | MHC.PC.OV ---
Intake Visit Reasons: Stress test results Intake Note: Telehealth to review stress test Controlled Area Checker Required: No Allergies doxycycline Allergy (Severe, Verified 12/30/24 16:02) Itching Medication List - Last Reconciled 12/30/24 by OSMAN Clement- atorvastatin 20 mg PO BEDTIME bupropion HCl SR (Wellbutrin SR) 150 mg PO BID calcium-mag oxide-vitamin D3 250-125-200 mg-mg-unit 2 caps PO cholecalciferol (vitamin D3) (Vitamin D3) 50 mcg PO DAILY escitalopram oxalate 15 mg (1.5 x 10 mg) PO DAILY 90 days famotidine 40 mg PO BEDTIME omega-3 fatty acids-fish oil 684-1,200 mg 1 cap PO DAILY omeprazole 40 mg PO DAILY ondansetron HCl 4 mg PO Q8H tramadol 50 mg PO Q8-10H PRN Tobacco use date assessed: 12/30/24 Fall risk assessment: No Falls in past year Last assessed Fall Risk: 12/30/24 Dental Screening Dental Screen Date: 12/30/24 Did you have a dental visit in the last 12 months?: Yes Did you have a dental problem in the last 6 months where you did not have access to dental care?: No Was dental information given to patient?: Patient has dentist HPI HPI Comments History of Present Illness Details 69 y/o F with sigmoid diverticulosis, internal hemorrhoids, hx of tubular adenoma, current smoker, CAD (noted on CT of lung 08/15/23), hyperlidipemia, Lower degenerative thoracic disc disease and sclerotic vertebral endplate arthritis, Overactive bladder, MDD, EZEQUIEL, COPD, SCC Skin cancer, osteopenia s/p R eye retinal tear w/ laser repair 2023 History of Present Illness - The patient is a 69-year-old female presenting to fu on stress testing - Coronary artery disease Stress test: borderline ischemic changes, on statin - GERD with symptoms managed on Prilosec; previously on famotidine. - Discontinued escitalopram previously used for anxiety and depression. - Prior severe symptoms in early November have diminished with current treatment. - Reports mild sternum pain, bowel movement irregularities improved with 'senna'. - Urinary urgency present; denies vomiting or severe nausea. - Scheduled gastroenterology follow-up at end-January; due for repeat colon. - Stopped hyoscamine. Was using with + effect. Has PRN nitro but has not used. 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 Review of Systems - Cardiovascular: Reports coronary artery disease. Denies current chest pain. - Gastrointestinal: Reports mild pain below the sternum and under the left rib cage, frequent bowel movements, reports GERD. - Neurological: Denies recent anxiety or depressive episodes. - Genitourinary: Reports urinary urgency. Denies abnormalities in urination frequency. - General: Denies nausea or vomiting. Results See below Assessment and Plan 1. Coronary Artery Disease - Continue atorvastatin. - Cardiology referral to Dr. Fregoso. - Advise smoking cessation. 2. Gastroesophageal Reflux Disease (GERD) - Continue Prilosec. - Gastroenterology follow-up in January. 3.Smoking Cessation/reduction encouraged Telehealth Attestation I attest that the documentation accurately reflects the telehealth visit performed by video. The patient has been explained that this is an interactive (audio/video) telehealth encounter and what that consists of. The patient understands and wishes to proceed. [employer] platform was used. Total time spent caring for the patient today was 35 minutes. This includes time spent before the visit reviewing the chart, time spent during the visit, and time spent after the visit on documentation, reviewing laboratory results, diagnostic imaging, medications, performing a medically necessary evaluation, counseling on diagnoses, care coordination, ordering appropriate tests, ordering appropriate medications, review of tests performed by other providers, reporting test results with the patient, communication with other healthcare providers. [facility] Medical History Nondisplaced fracture of distal end of radius Strain of left wrist Skin cancer Overactive bladder Hyperlipemia Anxiety Depression COPD (chronic obstructive pulmonary disease) Osteoporosis Surgical History H/O oral surgery Hx of colonoscopy Family History Mother High cholesterol Colon cancer Father Cardiovascular disease Sister Breast cancer Social History Household Members: None Both parents involved: No Caregiver staying overnight: No Housing: House Are you a primary resident care technician to a significant other at home: No Do you presently have visiting nurse or other home services: No 75 years or older and lives alone: No Alcohol intake: current Alcohol intake frequency: 0-2 drinks per day Alcohol type: wine Patient Tobacco Use Status: Current everyday Tobacco user Tobacco use type: Cigarette Cigarette Packs Per Day: 0.5 Cigarettes Per Day: 10.0 e-Cigarette/Vaping Use: Never Used Advance Directives Date on File: 08/31/20 service: No Current occupational status: employed Current occupation: [employer] Cognitive needs: No Hearing needs: Yes (has hearing aid) Vision needs: Yes (wear glasses) Questionnaire Thrive Questionnaire Date Thrive assessed: 09/16/24 EZEQUIEL-7 AMB Questionnaire EZEQUIEL-7 Date EZEQUIEL - 7 assessed: 09/23/24 Source: Developed by Drs. Luis Antonio Cota, Marlyn Stockton, August Díaz and colleagues, with an educational moy from [employer]. Physical exam (Primary Care) Tobacco/Smoking Status: Tobacco use Status Tobacco use date assessed 12/30/24 12/30/24 15:28 Patient Tobacco Use Status Current everyday Tobacco 12/30/24 13:13 Tobacco use type Cigarette 12/30/24 13:13 e-Cigarette/Vaping Use Never Used 12/30/24 13:13 Are you ready to quit: Yes Tobacco cessation counseling provided: Yes Items discussed: Nicotine replacement, QuitWorks and Other Relapse Prevention: discussed the importance of a supportive environment, discussed extending NRT, discussed negative mood or depression after quitting, weight gain after smoking is common and discussed dietary, exercise and/or lifestyle changes Number of minutes spent counselin CPT code: 90236 - 4-10 Minutes Thrive Assessment: Date of Thrive Assessment Date Thrive assessed 09/16/24 12/30/24 13:13 Telehealth Telehealth Telehealth Platform: [employer] Location of provider rendering services: practice address Location of patient: address on file Patient Identification confirmed using: Name, : Yes Telehealth method: voice only Patient verbally consented to treatment: Yes Patient verbally consented to billing insurance company: Yes Patient informed of any privacy concerns related to visit: Yes Minutes spent on Phone/Video with Pt.: 25 Results Reviewed Results Reviewed: NM/NM cardiolite stress test IMPRESSION: 1. Myocardial perfusion imaging study shows normal myocardial perfusion. 2. Gated LVEF is 55%. 3. Transient ischemic dilatation not present. EKG revealed borderline ischemic changes. Coding Level of Care Code Tele Est Pt Level 4 (79453) Complex EM visit Add On G2211 Diagnoses Epigastric pain R10.13 Constipation, unspecified constipation type K59.00 Constipation type: unspecified constipation type Gastroesophageal reflux disease without esophagitis K21.9 Esophagitis presence: without esophagitis Coronary artery disease involving [place] coronary artery of [place] heart without angina pectoris I25.10 Coronary Disease-Associated Artery/Lesion type: [place] artery [place] vs. transplanted heart: [place] heart Associated angina: without angina Mixed hyperlipidemia E78.2 Hyperlipidemia type: mixed hyperlipidemia Tobacco dependence F17.200 Additional Codes Vital Signs *Quality* - CPT code: 80010 - 4-10 Minutes ([id number]) Assessment & Plan Assessment & Plan (1) Epigastric pain: Code(s): R10.13 - Epigastric pain Category: Medical (2) Constipation: Code(s): K59.00 - Constipation, unspecified Category: Medical Qualifiers: Constipation type: unspecified constipation type Qualified Code(s): K59.00 - Constipation, unspecified (3) GERD (gastroesophageal reflux disease): Code(s): K21.9 - Gastro-esophageal reflux disease without esophagitis Category: Medical Qualifiers: Esophagitis presence: without esophagitis Qualified Code(s): K21.9 - Gastro-esophageal reflux disease without esophagitis (4) CAD (coronary artery disease): Comment: (noted on CT of lung 08/15/[address] abd 11/2024) Currently on statin, LDL goal less than 70, smoking cessation Code(s): I25.10 - Atherosclerotic heart disease of [place] coronary artery without angina pectoris Category: Medical Qualifiers: Coronary Disease-Associated Artery/Lesion type: [place] artery [place] vs. transplanted heart: [place] heart Associated angina: without angina Qualified Code(s): I25.10 - Atherosclerotic heart disease of [place] coronary artery without angina pectoris (5) Hyperlipemia: Code(s): E78.5 - Hyperlipidemia, unspecified Category: Medical Qualifiers: Hyperlipidemia type: mixed hyperlipidemia Qualified Code(s): E78.2 - Mixed hyperlipidemia (6) Tobacco dependence: Code(s): F17.200 - Nicotine dependence, unspecified, uncomplicated Category: Medical Plan . Orders: Referrals Cardiology Referral E78.2 - Mixed hyperlipidemia, F17.200 - Nicotine dependence, unspecified, uncomplicated, I25.10 - Atherosclerotic heart disease of [place] coronary artery without angina pectoris Medications: New sennosides (senna) 8.6 mg PO BID Refilled nitroglycerin do not exceed 3 doses per episode 0.3 mg sublingual Q5M PRN 30 tabs 0RF chest pain Discontinued tramadol Discontinued Reason: Patient Completed Course 50 mg PO Q8-10H PRN 20 tabs 0RF pain famotidine Discontinued Reason: Patient Completed Course 40 mg PO BEDTIME 7 tabs 0RF bupropion HCl SR (Wellbutrin SR) Discontinued Reason: Patient Completed Course 150 mg PO BID 180 tabs 0RF escitalopram oxalate Discontinued Reason: Patient no longer taking 15 mg (1.5 x 10 mg) PO DAILY 90 days 135 tabs 0RF
--- OUTSIDE RECORDS SUMMARY | 2024-12-30 16:35 | XMS_ITS | Patient Health Record ---
Author Organization [facility] Address [address] [place] [address] Care Team Providers Care Data Integration Developer Name Role Phone Nguyen Dewitt NP Primary Care Provider Luis Antonio Pacheco [phone] Results Component Value Reference Range Notes NM hepatobiliary w pharm (No t yet reviewed by provider) Interpretation: Performing Lab: Notes/Report: [address] [place] [address] Nuclear Medicine Report Signed Patient: Florentin Alba MR#: [id number] : 1955 Acct:[id number] Age/Sex: 69 / F ADM Date: 12/03/24 Loc: PO Attending Dr: Shirley DÍAZ Ordering Physician: Shirley Kemp Date of Service: 12/03/24 Procedure(s): NM hepatobiliary w pharm Accession Number(s): [id number] cc: Shirley Kemp; Luis Antonio Strong MD [...] 12/03/24 1103 DD/ 0817 TD/TT: 12/03/24 1000 Rn Document [place] [facility] [place] No Information Medications Medication SIG (Take, Route, Frequency, Duration) Notes Start Date End Date Status Coral Umaznsn-Kziztpkwg-Vda D 250-125-200 MG-MG-UNIT 2 capsules with a meal Orally Once a day for 30 day(s) Active Vitamin D 50 MCG (2000 UT) 1 tablet Oral ly Once a day for 30 day(s) Active Incruse Ellipta 62.5 MCG/INH 1 puff Inhalation Once a day Active [place] 3 1000 MG 1 capsule Orally Onc [...] Problem Status W/U Status Risk Notes Problem [id number] Encounter for screening for malignant neoplasm of colon (Z12.11) Active confirmed Problem 894265368 History of adenomatous polyp of colon (Z86.010) Active confirmed Problem 790880335510008 Preprocedural examination (Z01.818) Active confirmed Encounters Encounter Location Date Provider Diagnosis [facility] [address] [place] [address] 12/06/2024 Luis Antonio Strong Plan Of Treatment Pending Test Test Name Order Date NM hepatobiliary w pharm 12/03/2024 Future Test Test Name Order Date COLONOSCOPY 05/01/2013 COLONOSCOPY 07/03/2019 Next Appt Details Provider Name:Luis Antonio Strong , 02/06/2025 09:40:00 AM, [address], [address], [place], [address], Insurance Providers Payer Name Payer Address Payer Phone Subscriber Number Group Number Insured Name Patient Relationship to Insured Coverage Start Date Coverage End Date [employer] [place] [address] [address] [place] [address] [id number] FLORENTIN ALBA Self - patient is the insured Medical (General) History Medical History History ICD Code Screening Colonoscopy 2007--1 tubular adenoma removed--mild sigmoid diverticulosis; neg. colonoscopy in 07/2013 Osteoporosis COPD Denies [place],DM,CVA,renal disease Depression/anxiety Over-active bladder Hyperlipidemia Surgical History Surgery Date(Month/Year) Oral surgery
== END 2024-12-30 16:23 | disposition home or self-care (01) ==
LOC: HO.HMCFM 15:24
PROVIDERS: PCP Nurse Practitioner Family; Visit Provider Nurse Practitioner Family
DX: R10.13 Epigastric pain (principal); K59.00 Constipation, unspecified; K21.9 Gastro-esophageal reflux disease without esophagitis; I25.10 Atherosclerotic heart disease of native coronary artery without angina pectoris; E78.2 Mixed hyperlipidemia; F17.210 Nicotine dependence, cigarettes, uncomplicated

== ENCOUNTER 2025-03-26 07:43 | Outpatient (REF) | payer MEDICARE, SELFPAY ==
--- OUTSIDE RECORDS SUMMARY | 2024-11-19 10:15 | XMS_ITS | Continuity of Care Document ---
Author Organization [facility] Address [address] [place] [address] Phone Care Team Providers Care Health Analyst Name Role Phone [place] KRISSYDarren Unavailable Unavailable Allergies, Adverse Reactions, Alerts [...] Diagnoses Date Provider Providers Copied on Encounter [facility], [address], [place], [place], [address], [place] tel:[phone] [employer] [facility] problem (chief complaint) Foreign body in conjunctival sac, left eye, init encntr Lavern Banks. [address], [place], [address], [place]. tel:[phone] Referring Provider: Darren Puckett OD, [address], [place], [address]. tel:[phone] [facility], [address], [place], [place], [address], [place] tel:[phone] [facility] No Information Lavern Banks. [address], [place], [address], [place]. tel:[phone] Family History Family Member Type Diagnosis Age At Onset No Information Payers Payer name Insurance type Covered green party ID Authoriza tion(s) [facility] BL [id number] Social History Type Description Quantity Date [...]
--- OUTSIDE RECORDS SUMMARY | 2025-03-26 07:46 | XMS_ITS | Patient Health Record ---
Author Organization [facility] Address [address] [place] [address] Care Team Providers Care Desulphuring Operator Name Role Phone Shirley Kemp Primary Care Provider Luis Antonio Ho Unavailable [phone] Allergies No Known Allergies Results Component Value Reference Range Notes NM hepatobiliary w pharm Reviewed date:01/12/2025 10:35:17 PM Interpretation: Performing Lab: Notes/Report: [address] [place] [address] Nuclear Medicine Report Signed Patient: Florentin Alba MR#: [id number] : 1955 Acct:[id number] Age/Sex: 69 / F ADM Date: 12/03/24 Loc: PO Attending Dr: Shirley DÍAZ Ordering Physician: Shirley Kemp Date of Service: 12/03/24 Procedure(s): NE hepatobiliary w pharm Accession Number(s): [id number] cc: Shirley Kemp; Luis Antonio Strong MD EXAMINATION: NE BILIARY TRACT CLINICAL INFORMATION: Unspecified shoulder pain [...] 12/03/24 1103 DD/ 0817 TD/TT: 12/03/24 1000 [place] [facility] [place] For Referral No Information Medications Medication SIG (Take, Route, Frequency, Duration) Notes Start Date End Date Status Atorvastatin Calcium 20 MG 1 tablet Orally Once a day Active Vitamin D 50 MCG (1999 UT) 1 tablet Orally Once a day for 30 day(s) Active [place] 3 1000 MG 1 capsule Orally Onc e a day for 30 day(s) Not-Taking Coral Homygdt-Xaifxybby-Fnc D 250-125-200 MG-MG-UNIT 2 capsules with a meal Orally Once a day for 30 day(s) Active Omeprazole 40 MG Oral for 90 Days Active Immunizations Vaccine Route Administration Date Status [...] ppd; 4 glasses of wine per week Smoker 1/2 ppd; 4 glasses of wine per week Problems Problem Type SNOMED Code ICD Code Onset Dates Problem Status W/U Status Risk Notes Problem 029968636 Encounter for screening for malignant neoplasm of colon (Z12.11) Active confirmed Problem 180592537 History of adenomatous polyp of colon (Z86.010) Active confirmed Problem 655518695647349 Preprocedural examination (Z01.818) Active confirmed Problem Left upper quadrant pain (636049765) Abdominal pain, acute, left upper quadrant (R10.12) Active confirmed Vital Signs Blood pressure diastolic 77 mm Hg 02/06/2025 Height 65.5 in 02/06/2025 Blood pressure systolic 111 mm Hg 02/06/2025 Weight 120 lbs 02/06/2025 BMI 19.66 kg/m2 02/06/2025 Procedures Procedure Date Ordered Date Performed Result Body Sit e UPPER GI ENDOSCOPY 02/06/2025 N/A COLONOSCOPY 02/06/2025 N/A Encounters Encounter Location Date Provider Diagnosis [facility] [address] [place] [phone] 02/06/2025 Luis Antonio Strong History of adenomato us polyp of colon Z86.010 ; Abdominal pain, acute, left upper quadrant R10.12 and Encounter for screening for malignant neoplasm of colon Z12.11 [facility] [address] [place] [phone] 12/06/2024 Luis Antonio Strong Assessments Encounter Date Diagnosis (ICD Code) Assessment Notes Treatment Notes Treatment Clinical Notes Section Notes 02/06/2025 History of adenomatous polyp of colon (ICD-10 - Z86.010) Overall, Florentin appears quite well and is presently not having any significant GI complaints. Her extensive workup in November was completely negative judging by the radiology reports and laboratories. Given her improvement on omeprazole and the location of the pain primarily in the left upper quadrant and epigastric area she may have been having some issues with either gastritis or even ulcer disease. At this point I advised her to try to stop the omeprazole to see how she does without it after 2 months of treatment. I did advise her to resume it if need be. I have recommended an upper endoscopy for further evaluation. I shall obtain biopsies for H. pylori. I have also recommended a follow-up colonoscopy on the same day for screening purposes given her history of a tubular adenoma, family history of colon cancer, and her last exam being almost 5 years ago. We did review the rationale for that in regard to colon cancer prevention. Full consent has been obtained from her for both procedures, including risks of bleeding and perforation. The procedures will be done with monitored anesthesia care. We will obtain a clearance note from her a class lineman as she has an appointment coming up in March after the recent stress test. I did advise her to contact me prior to the procedures if she has any problems or questions I can be of assistance with. Florentin was comfortable with this plan. Thank you again for allowing me to participate in Florentin's care. I shall continue to keep you advised of her progress. 02/06/2025 Abdominal pain, acute, left upper quadrant (ICD-10 - R10.12) You can stop the Prilosec(omep razole) and see how you do without it. You can resume it if need be. Overall, Florentin appears quite well and is presently not having any significant GI complaints. Her extensive workup in November was completely negative judging by the radiology reports and laboratories. Given her improvement on omeprazole and the location of the pain primarily in the left upper quadrant and epigastric area she may have been having some issues with either gastritis or even ulcer disease. At this point I advised her to try to stop the omeprazole to see how she does without it after 2 months of treatment. I did advise her to resume it if need be. I have recommended an upper endoscopy for further evaluation. I shall obtain biopsies for H. pylori. I have also recommended a follow-up colonoscopy on the same day for screening purposes given her history of a tubular adenoma, family history of colon cancer, and her last exam being almost 5 years ago. We did review the rationale for that in regard to colon cancer prevention. Full consent has been obtained from her for both procedures, including risks of bleeding and perforation. The procedures will be done with monitored anesthesia care. We will obtain a clearance note from her a class lineman as she has an appointment coming up in March after the recent stress test. I did advise her to contact me prior to the procedures if she has any problems or questions I can be of assistance with. Florentin was comfortable with this plan. Thank you again for allowing me to participate in Florentin's care. I shall continue to keep you advised of her progress. 02/06/2025 Encounter for screening for malignant neoplasm of colon (ICD-10 - Z12.11) Overall, Florentin appears quite well and is presently not having any significant GI complaints. Her extensive workup in November was completely negative judging by the radiology reports and laboratories. Given her improvement on omeprazole and the location of the pain primarily in the left upper quadrant and epigastric area she may have been having some issues with either gastritis or even ulcer disease. At this point I advised her to try to stop the omeprazole to see how she does without it after 2 months of treatment. I did advise her to resume it if need be. I have recommended an upper endoscopy for further evaluation. I shall obtain biopsies for H. pylori. I have also recommended a follow-up colonoscopy on the same day for screening purposes given her history of a tubular adenoma, family history of colon cancer, and her last exam being almost 5 years ago. We did review the rationale for that in regard to colon cancer prevention. Full consent has been obtained from her for both procedures, including risks of bleeding and perforation. The procedures will be done with monitored anesthesia care. We will obtain a clearance note from her a class lineman as she has an appointment coming up in March after the recent stress test. I did advise her to contact me prior to the procedures if she has any problems or questions I can be of assistance with. Florentin was comfortable with this plan. Thank you again for allowing me to participate in Florentin's care. I shall continue to keep you advised of her progress. Plan Of Treatment Pending Test Test Name Order Date UPPER GI ENDOSCOPY 02/06/2025 COLONOSCOPY 02/06/2025 Future Test Test Name Order Date COLONOSCOPY 05/01/2013 COLONOSCOPY 07/03/2019 Next Appt Details Provider Name:Luis Antonio Strong , 05/19/2025 07:30:00 AM, [address] [place] [address] , [place], [place], [phone], Insurance Providers Payer Name Payer Address Payer Phone Subscriber Number Group Number Insured Name Patient Relationship to Insured Coverage Start Date Coverage End Date [facility] [address] [place] [address] [phone] [id number] FLORENTIN ALBA Self - patient is the insured Medical (General) History Medical History History ICD Code Screening Colonoscopy 2007- 1 tubular adenoma removed- mild sigmoid diverticulosis; neg. colonoscopy in 07/2013 Osteoporosis COPD Denies [place],DM,CVA,renal disease Depression/anxiety Over-active bladder Hyperlipidemia Negative screening colonoscopy in 0 Surgical History Surgery Date(Month/Year) Oral surgery
--- OUTSIDE RECORDS SUMMARY | 2025-03-26 07:46 | XMS_ITS | Clinical Summary ---
Author Organization [facility] Address [address] [place] [address] Phone Care Team Providers Care Accounting Generalist Name Role Phone Shirley Crespo NP Primary Care Provider Allergies No known active allergies Medications cholecalciferol (VITAMIN D3) 2,000 unit capsule 1 capsule Active cycloSPORINE (RESTASIS) 0.05 % suspension bid in both eyes Active CALCIUM CARBONATE (CALCIUM 600 ORAL) one daily A ctive cyanocobalamin, vitamin B-12, 1000 MCG tablet Take 1,000 mcg by mouth daily. Active atorvastatin (LIPITOR) 20 MG tabletIndications:M ixed hyperlipidemia Take 1 tablet (20 mg total) by mouth daily. 90 tablet 3 3 Active buPROPion (WELLBUTRIN SR) 150 MG SR 12 hr tabletIndications:M ajor depressive disorder in remission TAKE 1 TABLET(150 MG) BY MOUTH TWICE DAILY 180 tablet 3 4 Active escitalopram oxalate (LEXAPRO) 5 MG tabletIndications:R ecurrent major depressive disorder, in partial remission Take 3 tablets (15 mg total) by mouth daily. TAKE 1 TABLET(5 MG) BY MOUTH DAILY 90 tablet 3 4 Active Active Problems Problem Noted Date Diagnosed Date Mixed hyperlipidemia 04/05/2022 Assessment & Plan (12/25/2023 8:46 PM EDT): Lipid profile AST ALT ordered and will continue Lipitor as is and check the lipid concentrations to see if an increase in Lipitor is needed. Aspirin 81 mg daily given her smoking history for cardiovascular protection. Generalized anxiety disorder 03/05/2021 Assessment & Plan (12/25/2023 8:48 PM EDT): For both anxiety depression the Lexapro is of value. The Wellbutrin on the other hand is just for depression but helps with quitting smoking. Both are helpful altogether for her conditions. Going forward we can see her twice a year for psychiatry if she wishes and I will write the Lexapro and Wellbutrin. It looks like the patient was considering this whether she was going to see another psychiatrist or stay with me and then seek out a new therapist. Chronic obstructive pulmonary disease 10/01/2017 Assessment & Plan (12/25/2023 8:46 PM EDT): At this point no need for inhalers though if she is having shortness of breath with exertion we can obtain pulmonary function studies and assess for inhaler need. Ideally encouraging patient to quit smoking using the Wellbutrin to help or using a vape pen with gradual decrease in nicotine. Assessment & Plan (10/01/2017 10:10 PM EDT): Begin Albuterol use PRN for ALMAGUER. Please increase hydration. In addition to beginning abx for sinusitis, can continue OTC guaifenesin. Please f/u if any worsening SOB with activity or if dyspnea at rest. Please f/u if any worsening sx. Recurrent major depressive disorder, in partial remission 10/01/2017 Age-related osteoporosis wit hout current pathological fracture 10/01/2017 Assessment & Plan (12/25/2023 8:47 PM EDT): History of osteoporosis, encourage patient to consider quitting smoking as that is a major risk factor, stay active, vitamin D 1000 units in the summertime and 2000 units in winter. We will reassess vitamin D later on. Nicotine dependence, cigarettes, uncomplicated 0 10/01/2017 Assessment & Plan (10/01/2017 10:13 PM EDT): Encouraged continued minimized cigarette use even after current illness is resolved. Discussed pharmacological tx as well as behavior tx. Pt to consider. Supportive counseling re: current reduction. Resolved Problems Problem Noted Date Diagnosed Date Resolved Date Acute non-recurrent pansinusitis 10/01/2017 05/31/2018 Assessment & Plan (10/01/2017 10:13 PM EDT): Please begin Augmentin as directed for presumed bacterial sinusitis. Trial steam heat or nasal saline for relief of rhinosinusitis. May continue OTC guaifenesin. Due to lack of response to decongestant, please defer at this time. Please f/u if any worsening sx, or if any onset fever, chills, facial swelling, neck stiffness, or concerns. Immunizations Immunization Administration Dates Next Due COVID-19 (Pre-04/10) Pfizer Vaccine, mRNA, PF ,06/08/2020 Influenza Quadrivalent Preservative Free IM 03/19 Pneumococcal conjugate PCV13 07/21/2015 Pneumococcal polysaccharide PPSV23 10/12/2016, Tdap 05/02/2016,03/18/2010 Family History Medical History Relation Comments Hypertension Brother No Known Problems Daughter 1 No Known Problems Daughter 2 CV disease Father Colon cancer Mother Hypertension Mother Cancer Sibling Breast cancer Sister 1 No Known Problems Sister 2 No Known Problems Sister 3 No Known Problems Sister 4 Arthritis Sister 5 No Known Problems Son Relation Status Comments Brother Alive Daughter 1 Alive Daughter 2 Alive Father (Age 59) [place] Mother (Age 87) Sibling Sister 1 Alive Sister 2 Alive Sister 3 Alive Sister 4 Alive Sister 5 Alive Son Alive Social History Tobacco Use Types Packs/Day Years Used Date Smoking Tobacco: Every Day Cigarettes 0.8 45 Smokeless Tobacco: Never Tobacco Cessation:Ready to Q uit: No; Counseling Given: Yes Comments:1 ppd on days off, usually has 10-12/day on work days Alcohol Use Standard Drinks/Week Comments Yes 4 (1 standard drink = 0.6 oz pure alcohol) 1-2 drinks, wine 4 or more days/week Child or Family Care Answer Date Record ed Do you have problems with on e of the following making it difficult for you to work, study, or receive health care? No 03/31/2023 Education Answer Date Recorded Are you interested in more education? Not on ce e 04/03/2024 Are you concerned about learning? Not on file 04/03/2024 No 04/03/2024 No 04/03/2024 Food Answer Date Recorded Within the past 6 months we worried whether our food would run out before we got money to buy more. Never True 11/29/2024 Within the past 6 months the food we bought just didn't last and we didn't have enough money to get more. Never True Residential Stability Answer Date Recor ded What is your housing situation today? I have sameer sing 11/29/2024 How many times have you move d in the past 12 months? Zero (I did not move) 11/29/2024 Paying for Meds Answer Date Recorded Do you have trouble paying for medicines? No 11/29/2024 Paying Utility Bills Answer Date Record ed Do you have trouble paying your heating or elect ricity bill? No 11/29/2024 Transportation Answer Date Recorded Has the lack of transportati on kept you from medical appointments or from getting medications? No 11/29/2024 Unemployment Answer Date Recorded Are you currently unemployed or working on a part-time or temporary basis, and looking for work? No 04/02/2022 Digital Access Answer Date Recorded No 11/29/2024 Yes 11/29/2024 Do you have reliable internet access at home? Ye s 11/29/2024 Do you have a device (e.g., phone, tablet, computer) with a working camera? Yes 11/29/2024 Intimate Partner Violence Answer Date R ecorded Are you denied basic needs s uch as food, clothing, or medical care? No 11/29/2024 In the past 12 months have y ou been in a relationship with a person who hurts, threatens, or tries to control you? No 11/29/2024 Are you denied basic needs s uch as food, clothing, or medical care? No 11/29/2024 In the past 12 months have y ou been in a relationship with a person who hurts, threatens, or tries to control you? No 11/29/2024 Comments No Sex and Gender Information Value Date Recorded Sex Assigned at Not on file Legal Sex Female 9:55 PM EDT Gender Identity Not on file Sexual Orientation Not on file Last Filed Vital Signs Vital Sign Reading Time Taken Comments Blood Pressure 111/77 11/29/2024 5:26 PM EDT Pulse 98 11/29/2024 5:26 PM EDT Temperature 36.6 C (97.9 F) 11/29/2024 5:26 PM EDT Respiratory Rate 16 11/29/2024 5:26 PM EDT Oxygen Saturation 98% 11/29/2024 5:26 PM EDT Inhaled Oxygen Concentration - - Weight 56.7 kg (125 lb) 11/29/2024 12:17 PM EDT Height 167.6 cm (5' 6 ) 11/29/2024 12:17 PM EDT Body Mass Index 20.18 11/29/2024 12:17 PM EDT Plan of Treatment Health Maintenance Due Date Last Done Comments SMOKING Hx and SMOKELESS TOBACCO SCREENING 1968 COLOGUARD 2000 FIT TEST 2000 FOBT 2000 SIGMOIDOSCOPY 2000 VIRTUAL COLONOSCOPY 2000 ZOSTER VACCINES (1 of 2) 2005 RSV VACCINE (1 - Risk 60-74 years 1-dose series) 2015 PNEUMOCOCCAL VACCINES (50+ years) (3 of 3 - PCV20 or PCV21) 10/12/2021 10/12/2016, 07/21/2015, 03/19/2007 DEPRESSION SCREENING 12/23/2024 12/24/2023 INFLUENZA VACCINE (#1) 2025 04/05/2022 COVID-19 VACCINE (5 - season) 2025 04/13/2022, 04/19/2021, 06/26/2020, Additional history exists MAMMOGRAM 07/04/2025 07/04/2023, 02/18, 09/19/2020, Additional history exists LIPID PANEL 03/08/2026 03/08/2021, 02/18, 03/08/2021, Additional history exists Adult Td,Tdap Booster 05/02/2026 05/02/2016, 010 COLONOSCOPY 03/20/2030 03/20/2020, 12/14/2007 COLORECTAL CANCER SCREENING 03/20/2030 HEPATITIS C SCREENING Completed 03/08/2021 OSTEOPOROSIS SCREENING INITIAL (ONE-TIME) Completed 07/14/2023, 04/06/2023, 03/10/2021, Additional history exists HEPATITIS A VACCINES Aged Out No long er eligible based on patient's age to complete this topic HIB VACCINES Aged Out No longer eligi ble based on patient's age to complete this topic MENINGOCOCCAL VACCINES (ACWY) Aged Out No longer eligible based on patient's age to complete this topic MENINGOCOCCAL VACCINES (B) Aged Out N o longer eligible based on patient's age to complete this topic Medical Devices Not on file Procedures Procedure Name Priority Date/Time Associated Diagnosis Comments OUTSIDE BONE DENSITY SCREENING Routine 07/14/2023 MAMMOGRAPHY Routine 07/04/2023 4:48 PM EST OUTSIDE HDL Routine 03/08/2021 HEPATITIS C ANTIBODY, QUALITATIVE Routine 03/08/2021 COLONOSCOPY FOR RESULT ENTRY ONLY Routine 03/20/2020 from Last 3 Months or Most Recently Relevant to Health Maintenance Results * OUTSIDE BONE DENSITY SCREENING (07/14/2023) Pathologist [facility] BONE DENSITY SCREENING - EXTERNAL osteopenia Historical Provider HEALTH MAINTENANCE Final Result * MAMMOGRAPHY FOR RESULT ENTRY ONLY (07/04/2023 4:48 PM EST) Nguyen Dewitt NP HEALTH MAINTENANCE Final Result * Hepatitis C antibody, qualitative (03/08/2021) Nguyen Dewitt NP LAB BLOOD ORDERABLES Edited Res ult - Final * Outside HDL (03/08/2021) Pathologist [facility] HDL - External 79 40 - 80 mg/dL Historical Provider LAB BLOOD ORDERABLES Cris l Result * COLONOSCOPY FOR RESULT ENTRY ONLY (03/20/2020) Pathologist [facility] Colonoscopy 5 yr recall Historical Provider HEALTH MAINTENANCE Final Result from Last 3 Months or Most Recently Relevant to Health Maintenance Insurance MEDICARE PPO BLUE REPLACEMENT . [address] MEDICARE PPO BLUE REPLACEMENT MEDICARE PPO BLUE REPLACEMENT [facility] MEDICARE PPO BLUE REPLACEMENT [facility] MEDICARE PPO BLUE REPLACEMENT Care Teams Accounting Generalist Relationship Specialty Start Date End Date Shirley Crespo NP [address] [place] [address] [email or web address] PCP - General Nurse Practitioner 11/29/24 Additional Source Comments The information contained in this document represents components of the legal health record. It is not the complete legal health record.[facility]
[2025-03-26 09:20] LABS: Alanine Aminotransferase 14 U/L (0-31); Albumin Level 4.2 g/dL (3.5-5.0); Alkaline Phosphatase 61 U/L (39-117); Anion Gap 9 (12-20); Aspartate Amino Transferase 27 U/L (5-31); Blood Urea Nitrogen 20 mg/dL (9-16); Calcium 9.0 mg/dL (8.4-10.2); Carbon Dioxide 28 mmol/L (22-29); Chloride 111 mmol/L (96-108); Cholesterol 185 mg/dL (<200); Estimated Glomerular Filt Rate > 60; HDL Cholesterol 64 mg/dL (>40); Potassium 4.2 mmol/L (3.3-5.1); Sodium 144 mmol/L (135-145); Total Protein 6.1 g/dL (6.5-8.0); Triglycerides 70 mg/dL (<150)
[2025-03-26 09:41] LABS: Ferritin 65 ng/mL (10-250)
[2025-03-26 09:44] LABS: Folate 9.9 ng/mL (> or = 4.0); Vitamin B12 560 pg/mL (200-900)
[2025-03-26 09:56] LABS: Hemoglobin A1C 122.1325 umol/L; Total Hemoglobin (HGBA1C) 3710.9457 umol/L
[2025-03-26 12:50] LABS: Microalbum/Creatinine Ratio Ur 10.2 ug/mg cr (<30)
== END 2025-03-26 07:44 | disposition home or self-care (01) ==
LOC: HO.10HDL 07:43
PROVIDERS: Visit Provider Nurse Practitioner Family
DX: Z13.1 Encounter for screening for diabetes mellitus (principal); E78.2 Mixed hyperlipidemia; I73.9 Peripheral vascular disease, unspecified; I25.10 Atherosclerotic heart disease of native coronary artery without angina pectoris
CPT/HCPCS: 36415; 80053; 80061; 82043; 82306; 82570; 82607; 82728; 82746; 83036; 84443

== ENCOUNTER 2025-04-14 14:48 | Outpatient (AMB) | payer MEDICARE, SELFPAY ==
--- OUTSIDE RECORDS SUMMARY | 2024-11-19 10:15 | XMS_ITS | Continuity of Care Document ---
Author Organization [facility] Address [address] [place] [address] Phone Care Team Providers Care Working Second Hand Name Role Phone [place] KRISSYDarren Unavailable Unavailable Allergies, Adverse Reactions, Alerts [...] Diagnoses Date Provider Providers Copied on Encounter [facility], [address], [place], [place], [address], [place] tel:[phone] [facility] problem (chief complaint) Foreign body in conjunctival sac, left eye, init encntr Lavern Banks. [address], [place], [address], [place]. tel:[phone] Referring Provider: Darren Puckett OD, [address], [place], [address]. tel:[phone] [facility], [address], [place], [place], [address], [place] tel:[phone] [facility] No Information Lavern Banks. [address], [place], [address], [place]. tel:[phone] Family History Family Member Type Diagnosis Age At Onset No Information Payers Payer name Insurance type Covered alliance party ID Authoriza tion(s) [facility] BL [id number] Social History Type Description Quantity Date [...]
--- NOTE | 2025-04-14 14:52 | A.OFFVIS_ITS ---
Intake Vital Signs 04/14/25 15:00 Height 5 ft 6 in Weight 126 lb 2 oz BMI 20.4 BP 122/70 Blood Pressure Location Lt brachial Position Sitting Respiration 12 Pulse 75 Pulse Source Pulse Oximeter Temp 97.2 F Temp Source Oral Pulse Oximetry (%) 98 Oxygen Delivery Method Room Air Intake Visit Reasons: Physical Intake Note: AWV. Patient was just dx 2 weeks ago of skin cancer behind left leg. Community Cultural Development Officer Required: No Allergies doxycycline Allergy (Severe, Verified 04/14/25 15:22) Itching Medication List - Last Reconciled 04/14/25 by Shirley Kemp, TEENAGE BABYSITTER- atorvastatin 20 mg PO BEDTIME calcium-mag oxide-vitamin D3 250-125-200 mg-mg-unit 2 caps PO cholecalciferol (vitamin D3) (Vitamin D3) 50 mcg PO DAILY cyclosporine 0.05% (Restasis) drps ophthalmic (eye) omega-3 fatty acids-fish oil 684-1,200 mg 1 cap PO DAILY omeprazole 40 mg PO DAILY ondansetron HCl 4 mg PO Q8H sennosides (senna) 8.6 mg PO BID Do you need a note to return to daycare/school/sports/work: No HPI HPI Comments History of Present Illness Details Here today for AWV. IPPV The Medicare Annual Wellness Visit (AWV) is a yearly appointment with a health professional to identify health risks and help reduce them and to create or update a personalized prevention plan. During a Medicare AWV, health professionals should also review any current opioid prescriptions, detect any cognitive impairment, and establish or update medical and family history. 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 Family hx: Mom with colon ca (dx in 80's) , Sister w/ breast ca (dx age 52), Skin cancer , Second sister w/ breast ca age 76 Health Maintenance: See scanned preventative medicine assessment with personalized health plan and screening schedule. Colon 2019 Dr Strong: history of tubular adenomas,recommend a followup colonoscopy in 5 years for further screening. Mammo 06/2024 WNL DEXA 07/14/23 Osteopenia , repeat 2025 PAP 2021, reports no abnormal,no personal or family hx of FOUNDER CHAIRMAN AND CHIEF CREATIVE OFFICER cancer. Aged out. Tdap 2024, Declined Flu. Declined PCV. Declined Shingles. Lung cancer screening active in program at [facility] AAA screen: NA EKG: done today NSR with L atrial enlargement [place] of Care: [place] Derm Dr Schuster q6mo; 02/2025 had SCC removed from L posterior leg Counseling in the past; Prescriber [facility] in the past. Optho Retinal specialist appt next Spring 2025; and then no longer will need fu Visual Acuity: wears glasses. Active with retinal specialist Hearing Screening: [facility], would like hearing test Wears hearing aides ACP: HCP Y Dtr Tierney; Has a living will and trust; MOLST provided along w/ education Dietary/Nutrition/Exercise Edu provided: Y During the course of the visit the patient was educated and counseled about appropriate screening and preventative services. Patient instructions were provided to the patient in written or electronic format. I have reviewed and verified the above information. History of Present Illness The patient is a 70-year-old female presenting for a Medicare wellness visit/ IPPV Gastroesophageal reflux disease: - The patient has been taking omeprazole since being sick in November. - Her rn training advised her kiran t she could discontinue the medication. - She has independently tapered her dose to every other day and is tolerating it well. - She is scheduled for a colonoscopy and endoscopy on May 19. - No longer having any GI sx. Hyperlipidemia/CAD - The patient takes atorvastatin 20 mg d aily. - Recent blood work from March 26Mon an LDL of 107 mg/dL, which is an im provement from previous levels of 141 and 162 mg/dL. - Her HDL is 64 mg/dL. - Her blood pressure today was 122/70 mm Hg, indicating good control. - An EKG showed left atrial enlargement - She has an initial consultation schedu led with cardiology this upcoming History of squamous cell carcinoma of skin: - The patient has a history of recurrent squamous cell carcinomas. - She had her fourth one removed from back of her leg in early February. - She sees a computer operations manager every six mon ths without fail. Osteopenia: - A bone density scan in 2023 showed ost eopenia. - Her calcium and vitamin D levels are n ormal. - The patient reports being physically a ctive. Hearing Loss: - The patient feels her hearing is getti ng worse and finds she is using her hearing aids more often. - Her last hearing test was in 2021. Health Maintenance: - Lung Cancer Screening: Her last low-do se CT chest scan was on 08/15/23, with a recommendation for a repeat in one year. - Mammogram: The patient is adherent to mammogram screening due to a significant family history of breast cancer and plans to continue. - Gynecological Screening: Her last pap smear was normal in 2021. - Ophthalmology: She is followed by a re tinal specialist after surgery and has one more follow-up appointment in the spring of next year before being discharged from care. - Immunizations: The patient declined flu, pneumococcal, and shingles vaccines. Past Medical History - Gastroesophageal reflux disease, curre ntly tapering omeprazole. - Hypertension, well-controlled. - Hyperlipidemia, on atorvastatin. - Osteopenia, diagnosed via bone density scan in 2023. - Chronic low total protein, stable sinc e 2018. - Hearing loss, uses hearing aids. - Possible biliary colic episode in November , with severe pain, but with normal imaging and no definitive diagnosis. Past Surgical History - Excision of squamous cell carcinoma fr om the back of her leg in early February. - Retinal surgery. Family History - A sister, now 75, was diagnosed with b reast cancer around age 52. - Her oldest sister, age 76, was diagnos ed with aggressive, stage 4 breast cancer last February and is undergoing chemotherapy. - Her oldest sister's was recent ly diagnosed with stage 4 prostate cancer. 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 - Marital Status: for over 30 y ears and reports being sexually active with a new partner. - Family: Has daughters and a son. - Exercise: Reports being active and sammie ys pickleball. - Advance Directives: The patient has de signated her daughter, Nel, as her healthcare proxy. - Code Status: She expresses a desire to be a full code unless there is no quality of life, in which case she would not want to be kept on machines. Health Maintenance - Colon Cancer Screening: She is schedul ed for a repeat colonoscopy and an endoscopy on May 19. - Breast Cancer Screening: Patient repor ts staying up to date on mammograms and plans to continue doing so. - Cervical Cancer Screening: Last Pap sm ear in 2021 was normal. - Lung Cancer Screening: The patient is overdue for her annual low-dose CT scan, and a new referral will be placed. - Osteoporosis Screening: Her last bone density scan in 2023 showed osteopenia; a repeat is planned for 2025. - Skin Cancer Screening: She sees a derm atologist every six months for skin checks due to a history of squamous cell carcinoma. - Hearing Screening: Reports worsening h earing; an order for a new hearing test will be placed. - Vision Screening: Follows up with a re tinal specialist and has one more appointment next spring. - Immunizations: Patient declined the fl u shot, pneumococcal, and shingles vaccines. - Advance Care Planning: Discussion was held regarding her healthcare proxy and living will. Review of Systems - Constitutional: Denies chest pain with activity. - Neurological: Reports occasional forge tfulness, such as forgetting the reason for entering a room. - HEENT: Reports subjective worsening of hearing. - GI: Reports normal bowel movements. - : Reports urinary frequency but ludin es incontinence if she can get to a bathroom in time. - Skin: Reports a history of recurrent s quamous cell skin cancers. Physical Exam General: Well developed, well nourished, in no acute distress. Appears stated age. Head: Normocephalic, atraumatic. Eyes: Pupils are equal, round and reactive to light and accommodation. Conjunctivae are clear. Scleras nonicteric bilat. Vision grossly normal. Ears: TMs clear AU, EACS WNL Nose: Patent, without discharge. Neck: No carotid bruit bilat. Supple, Chronic L AC adenopathy cont w/o change, No thyromegaly. Breast: Edu on SBE Lungs: Clear to auscultation bilaterally. No rales, rhonchi or wheeze noted. Good air flow in all hemphill. Heart: Regular rate and rhythm. No murmurs, click, rubs or gallops are noted Abdomen: Bowel sounds present in all quadrants. The abdomen is soft, nontender, with no masses or organomegaly noted. No hernias are noted. : Deferred. Reviewed recommendations for routine FOUNDER CHAIRMAN AND CHIEF CREATIVE OFFICER. Pulses: Peripheral pulses are equal and palpable bilaterally. Extremities: No clubbing, cyanosis nor edema is noted. Varicose veins noted BLE Neurologic: Gait and station normal. Cranial Nerves 2-12 intact. Motor strength grossly symmetrical and intact. No sensory loss. Balance normal. Skin: No rashes, ulcers, or lesions noted. Turgor is good. Skin color is good. Hair and nails are without abnormalities. Psych: Normal eye contact, affect and mood appropriate, and normal interactions. Patient is alert and appropriate to context. Results - Labs (03/26): Electrolytes, kidney fun ction, calcium, iron stores, and liver function were all normal. - Total protein was slightly low, consis tent with chronic findings, while albumin was normal. - Lipid panel: LDL 107 mg/dL, HDL 64 mg/ dL. - Vitamin D was 75, B12 and thyroid func tion were normal. - No evidence of diabetes. - EKG (Today): Normal with left atrial e nlargement. - Bone Density Scan (2023): Showed osteo penia. - Low-dose CT Chest (08/15/2023): The re port recommended a repeat scan in one year. - Pap Smear (2021): Normal. Medical Decision Making The patient is a 70-year-old female presenting for a comprehensive Medicare wellness visit. Her chronic conditions, including hypertension and hyperlipidemia, appear well-managed on her current regimen, as supported by a blood pressure of 122/70 mmHg and a recent LDL of 107 mg/dL. No medication adjustments are required at this time for these conditions. The patient is appropriately weaning off omeprazole per her rn training's recommendation, and she was counseled on a gradual tapering schedule to monitor for symptom recurrence. The working diagnosis for her severe abdominal pain episode in November is biliary colic, given the negative imaging studies and nocturnal presentation; however, a definitive cause remains elusive. Her upcoming EGD and colonoscopy will provide further diagnostic insight. Health maintenance was a jane focus. Referrals were renewed for the lung cancer screening program, as she is overdue, and for an audiology evaluation due to her subjective hearing decline. We discussed her continued adherence to mammography and dermatology surveillance, which is crucial given her significant family and personal history. Advance care planning was also addressed, confirming her daughter as healthcare proxy and her wish to be a full code, with a form provided for further detail. Plan 1. Medicare Wellness Visit - Reviewed and coordinated all health ma intenance screenings. - Renewed referral for the lung cancer s creening program for an annual low-dose CT of the chest. - Placed an order for a formal hearing e xam due to patient's reported worsening of hearing. - Discussed advance care planning; the p atient identified her daughter as her healthcare proxy and wishes to be full code. - Patient declined recommended immunizat ions, including flu, pneumococcal, and shingles vaccines. 2. Gastroesophageal Reflux Disease - The patient is currently self-tapering omeprazole to every other day with good effect. - Recommended to continue tapering to th ree times a week, then two times a week, to assess for symptom recurrence before stopping completely. - The patient will follow up with her ga stroenterologist for a scheduled colonoscopy and EGD on May 19, which will further evaluate her symptoms. 3. Hyperlipidemia - Continue atorvastatin 20 mg daily. - Recent labs show LDL is 107 mg/dL, whi ch is at goal. - Plan to recheck lipids in six months v ia a follow-up office visit. 4. CAD/L atrial enlargement - Blood pressure is well-controlled at 1 22/70 mmHg on current medications. - No medication changes are necessary at this time. - The patient has an upcoming initial co nsultation with cardiology this week. 5. History Of Squamous Cell Carcinoma Of Skin - The patient will continue routine surv eillance with her computer operations manager every six months. 6. Osteopenia - Patient has adequate vitamin D and lupe cium levels and is physically active. - Plan to repeat bone density scan in to monitor for progression. Patient Instructions - Continue to slowly reduce your omepraz ole (Prilosec) as we discussed. First, take it three times a week for one week, then two times a week for a week. If your stomach pain returns, send a message through the portal. - Keep taking your atorvastatin (Lipitor ) 20 mg every day for cholesterol. - Keep your appointment with the heart s pecialist (cardiology) this . - The office has sent a referral for you r annual lung cancer screening CT scan; they should call you to schedule it. - The office has sent an order for a new hearing test. Please call [facility] to schedule it, but be aware they may be booked far out. - Continue with your plan to have a colo noscopy and endoscopy on May 19. - Remember to see your computer operations manager tasneem martínez six months for skin checks. - Your next bone density scan is due in 2025. - You were given a form about your healt hcare wishes (advance directive). If you decide to fill it out, please bring it back to the office so we can add it to your chart. - Please schedule a follow-up appointmen t in six months to have your cholesterol checked again. Consent A discussion was held regarding advance care planning as part of this wellness visit. The patient confirmed she has designated her daughter, Nel, as her healthcare proxy. The concept of code status was explained, and the patient verbally consented to being a full code, indicating her desire for resuscitation efforts unless there is no hope for a meaningful quality of life, at which point her proxy would make decisions. She was provided with a state- specific advance directive form (medical orders for life-sustaining treatment) to further clarify her wishes regarding interventions such as mechanical ventilation, dialysis, and artificial nutrition/hydration, which she can complete and return to the office for signature. Patient was informed and verbally consented to the use of an ambient scribe for clinic note documentation during this visit. An additional 30 minutes was spent addressing the problem(s) noted at todays visit. This includes time spent before the visit reviewing the chart, time spent during the visit, and time spent after the visit on documentation reviewing laboratory results, diagnostic imaging, medications, performing a medically necessary evaluation, counseling on diagnoses, care coordination, ordering appropriate tests, ordering appropriate medications, review of tests performed by other providers, reporting test results with the patient, communication with other healthcare providers. [facility] Medical History (Updated 04/14/25 @ 16:10 by OSMAN Clement-ANGEL) Anxiety COPD (chronic obstructive pulmonary disease) Depression Hyperlipemia Nondisplaced fracture of distal end of radius Osteoporosis Overactive bladder Skin cancer Strain of left wrist Surgical History (Updated 04/14/25 @ 16:10 by OSMAN Clement-ANGEL) H/O oral surgery Hx of colonoscopy (~2019) Family History Mother High cholesterol Colon cancer Father Cardiovascular disease Sister Breast cancer Social History Household Members: None Both parents involved: No Caregiver staying overnight: No Housing: House Are you a primary acute care surgeon to a significant other at home: No Do you presently have visiting nurse or other home services: No 75 years or older and lives alone: No Alcohol intake: current Alcohol intake frequency: 0-2 drinks per day Alcohol type: wine Patient Tobacco Use Status: Current everyday Tobacco user Tobacco use type: Cigarette Cigarette Packs Per Day: 0.5 Cigarettes Per Day: 10.0 e-Cigarette/Vaping Use: Never Used Advance Directives Date on File: 08/31/20 service: No Current occupational status: employed Current occupation: [employer] Cognitive needs: No Hearing needs: Yes (has hearing aid) Vision needs: Yes (wear glasses) Questionnaire Medicare Wellness Checkup [age] What gender do you identify with?: female During the past 4 weeks, how much have you been bothered by emotional problems such as feeling anxious, depressed, irritable, sad or downhearted, and blue?: not at all During the past 4 weeks, has your physical & emotional health limited your social activities with family, friends, neighbors, or groups?: not at all During the past 4 weeks, how much bodily pain have you generally had?: no pain During the past 4 weeks, was someone available to help you if you needed & wanted help?: yes, as much as I wanted During the past 4 weeks, what was the hardest physical activity you could do for at least 2 minutes?: moderate Can you get to places out of walking distance without help? (For eg., can you tr linda alone on buses, taxis or drive your car?): Yes Can you go shopping for groceries or clothes without someone's help?: Yes Can you prepare your own meals?: Yes Can you do your housework without help?: Yes Because of any health problems, do you need the help of another person with your personal care needs such as eating, bathing, dressing or getting around the house?: No Can you handle your own money without help?: Yes During the past 4 weeks, how would you rate your health in general?: very good Are you having difficulties driving your car?: no Do you always fasten your seat belt when you are in a car?: yes, usually During past 4 weeks, have you been bothered by the following: never: Falling or dizzy when standing up, Sexual problems?, Trouble eating well?, Teeth or denture problems?, Problems using the telephone? and Tiredness or fatigue? Have you fallen 2 or more times in the past year?: No Are you afraid of falling?: No Are you a smoker?: yes, but I'm not ready to quit During the past 4 weeks, how many drinks of wine, beer, or other alcoholic beverages did you have?: 1 drink or less per week Do you exercise for about 20 minutes 3 or more times a week?: yes, some of the time Have you been given information to help with the following?: no: Hazards in your house that might hurt you? and no: Keeping track of your medications? How often do you have trouble taking medicines the way you have been told to take them?: I always take medicine as prescribed How confident are you that you can control & manage most of your health problems?: very confident What is your race?: White Activity of Daily Living Bathing - sponge bath, tub bath or shower: receives no assistance (gets in/out by self, if usual bathing means Dressing - getting clothes from closets & drawers, including inner/outer garments & fasteners.: gets clothes & gets completely dressed without help Toileting - going to the 'toilet room' for urine/bowel elimination & cleaning self/arranging clothes: goes to toilet room, cleans self, arranges clothes without help Transfer: moves in & out of bed and chair without help (may use support object) Continence: controls urination/bowel movements completely by self Feeding: feeds self without help Total Score: 0 Information obtained from: patient Using telephone: independent Traveling: independent Shopping: independent Preparing meals: independent Housework: independent Taking medicine: independent Managing money: independent PHQ-9 Over the last 2 weeks, how often have you been bothered by any of the following problems? 1. Little interest or pleasure in doing things: not at all 2. Feeling down, depressed, or hopeless: not at all 3. Trouble falling or staying asleep, or sleeping too much: not at all 4. Feeling tired or having little energy: not at all 5. Poor appetite or overeating: not at all 6. Feeling bad about yourself - or that you are a failure or have let yourself or your family down: not at all 7. Trouble concentrating on things, such as reading the newspaper or watching television: not at all 8. Moving or speaking so slowly that other people could have noticed. Or the opposite - being so fidgety or restless that you have been moving around a lot more than usual: not at all 9. Thoughts that you would be better off or of hurting yourself in some way: not at all Total score: 0 Depression Screening Interpretation: Negative Depression Screening Done: Yes 95655 - PHQ-9 Billing: Yes Source: Developed by Drs. Luis Antonio Cota, Marlyn Stockton, August Díaz and colleagues, with an educational moy from [employer]. Physical Exam Vital Signs: Last Vital Signs Temp 97.2 F 04/14/25 15:00 Pulse 75 04/14/25 15:00 Resp 12 04/14/25 15:00 BP 122/70 04/14/25 15:00 Pulse Ox 98 04/14/25 15:00 Oxygen Delivery Method Room Air 04/14/25 15:00 BMI result Body Mass Index 20.4 Office Procedures EKG [id number], Complete Vision Screening Right Eye: 20/30 Left Eye: 20/25 Bilateral: 20/40 Color: Pass Corrected: Pass (wearing glasses) 29274 - Vision Screening Results Reviewed Results Reviewed: [id number]/8/25 Result Units Range Interpretation Provider Comments Sodium Level 144 mmol/L (135-145) Potassium Level 4.2 mmol/L (3.3-5.1) Chloride Level 111 mmol/L (96-108) High Carbon Dioxide Level 28 mmol/L (22-29) Anion Gap 9 (12-20) Low Blood Urea Nitrogen 20 mg/dL (9-16) High Creatinine 0.82 mg/dL (0.5-1.4) Estimated Creatinine Clearance Calc Not Reportable Estimat Glomerular Filtration Rate > 60 Random Glucose 105 mg/dL (60-115) Estimated Average Glucose 103 mg/dL Hemoglobin A1c Percent 5.2 % (<6.0) Calcium Level 9.0 mg/dL (8.4-10.2) Ferritin 65 ng/mL (10-250) Total Bilirubin 0.7 mg/dL (0.0-1.0) Aspartate Amino Transf (AST/SGOT) 27 U/L (5-31) Alanine Aminotransferase (ALT/SGPT) 14 U/L (0-31) Alkaline Phosphatase 61 U/L (39-117) Total Protein 6.1 g/dL (6.5-8.0) Low Albumin 4.2 g/dL (3.5-5.0) Triglycerides Level 70 mg/dL (<150) Cholesterol Level 185 mg/dL (<200) LDL Cholesterol, Calculated 107 mg/dL (<100) High HDL Cholesterol 64 mg/dL (>40) Vitamin B12 Level 560 pg/mL (200-900) 25-Hydroxy Vitamin D Total 75.7 ng/mL (>30) Folate 9.9 ng/mL (> or = 4.0) Thyroid Stimulating Hormone (TSH) 0.87 uIU/mL (0.32-4.0) Laboratory Result Units Range Interpretation Provider Comments Urine Creatinine 87.80 mg/dL Urine Microalbumin 9.0 mg/L Urine Microalbumin/Creatinine Ratio 10.2 ug/mg cr (<30) Assessment & Plan Assessment & Plan (1) Encounter for initial annual wellness visit (AWV) in Medicare patient: Onset Date: ~04/14/25 Code(s): Z00.00 - Encounter for general adult medical examination without abnormal findings (2) ACP (advance care planning): Code(s): Z71.89 - Other specified counseling (3) Family history of breast cancer: Comment: in 2 sisters Code(s): Z80.3 - Family history of malignant neoplasm of breast (4) Hearing loss: Code(s): H91.90 - Unspecified hearing loss, unspecified ear Qualifiers: Hearing loss type: unspecified Laterality: bilateral Qualified Code(s): H91.93 - Unspecified hearing loss, bilateral (5) Tobacco dependence: Code(s): F17.200 - Nicotine dependence, unspecified, uncomplicated (6) Hyperlipemia: Code(s): E78.5 - Hyperlipidemia, unspecified Qualifiers: Hyperlipidemia type: mixed hyperlipidemia Qualified Code(s): E78.2 - Mixed hyperlipidemia (7) Full code status: Onset Date: ~04/14/25 Code(s): Z78.9 - Other specified health status (8) CAD (coronary artery disease): Comment: (noted on CT of lung 08/15/[address] abd 11/2024) Currently on statin, LDL goal less than 70, smoking cessation Code(s): I25.10 - Atherosclerotic heart disease of [place] coronary artery without angina pectoris Qualifiers: Coronary Disease-Associated Artery/Lesion type: [place] artery [place] vs. transplanted heart: [place] heart Associated angina: without angina Quali fied Code(s): I25.10 - Atherosclerotic heart disease of [place] coronary artery without angina pectoris (9) PVD (peripheral vascular disease): Comment: Based on clinical exam, on statin, monitor skin integrity Code(s): I73.9 - Peripheral vascular disease, unspecified (10) Influenza vaccination declined: Code(s): Z28.21 - Immunization not carried out because of patient refusal (11) Pneumococcal vaccination declined: Code(s): Z28.21 - Immunization not carried out because of patient refusal (12) Herpes zoster vaccination declined: Code(s): Z28.21 - Immunization not carried out because of patient refusal Plan / Orders: Orders Lipid Panel 6 Months E78.2 - Mixed hyperlipidemia Referrals Audiology Referral H91.90 - Unspecified hearing loss, unspecified ear Lung Cancer Screening Referral F17.200 - Nicotine dependence, unspecified, uncomplicated Patient Instructions: Influenza (flu) is an infection in the lungs and breathing passages. It is caused by the influenza virus. There are different strains, or types, of the flu virus from year to year. Unlike the common cold, the flu comes on suddenly and the symptoms can be more severe. These symptoms include a cough, congestion, fever, chills, fatigue, aches, and pains. These symptoms may last for a few weeks. Although the flu can make you feel very sick, it usually doesn't cause serious health problems. Home treatment is usually all you need for flu symptoms. But your doctor may prescribe antiviral medicine to prevent other health problems, such as pneumonia, from developing. The risk of other health problems from the flu is highest for young children (under 5), older adults (over 65), women, people with long-term health conditions, people who live in nursing homes or long-term care centres, and indigenous peoples. How can you care for yourself at home? Get plenty of rest. Drink plenty of fluids. If you have to limit fluids because of a health problem, talk with your doctor before you increase the amount of fluids you drink. Take an cany-gee-qglgcfa pain medicine if needed, such as acetaminophen (Tylenol), ibuprofen (Advil, Motrin), or naproxen (Aleve), to relieve fever, headache, and muscle aches. Read and follow all instructions on the label. No one younger than 18 should take aspirin. It has been linked to Sushil syndrome, a serious illness. Take any prescribed medicine exactly as directed. Do not smoke. Smoking can make the flu worse. If you need help quitting, talk to your doctor about stop-smoking programs and medicines. These can increase your chances of quitting for good. If the skin around your nose and lips becomes sore, put some petroleum jelly (such as Vaseline) on the area. To ease coughing: Suck on cough drops or plain, hard candy. Try an opya-ztv-vzfsuer cough or cold medicine. Read and follow all instructions on the label. Raise your head at night with an extra pillow. This may help you rest if coughing keeps you awake. To avoid spreading the flu Wash your hands regularly, and keep your hands away from your face. Stay home from school, work, and other public places until you are feeling better and your fever has been gone for at least 24 hours. The fever needs to have gone away on its own without the help of medicine. Ask people living with you to talk to their doctors about preventing the flu. They may get antiviral medicine to keep from getting the flu from you. To prevent the flu in the future, get the flu vaccine every fall. Encourage people living with you to get the vaccine. Cover your mouth when you cough or sneeze. If you can, cough or sneeze into the bend of your elbow, not your hands. When should you call for help? Call 911 anytime you think you may need emergency care. For example, call if: You have severe trouble breathing. You have a seizure. Call your doctor or nurse advice line now or seek immediate medical care if: You have trouble breathing. You have a fever with a stiff neck or a severe headache. You have pain or pressure in your chest or belly. You have a fever or cough that returns after getting better. You feel very sleepy, dizzy, or confused. You are not urinating. You have severe muscle pain. You have severe weakness, or you are unsteady. You have medical conditions that are getting worse Watch closely for changes in your health, and be sure to contact your doctor or nurse advice line if: You do not get better as expected. You are having a problem with your medicine. Quality Reporting (2019) Adult ([facility] 138//) Smoking risk assessment performed?: Yes Patient Tobacco Use Status: Current everyday Tobacco user Tobacco cessation counseling provided: Yes Items discussed: Nicotine replacement, QuitWorks and Other Pharmacotherapy not ordered: No Depression screening performed: Yes Screen Results: Yes Negative screen Systolic BP not done?: No Diastolic BP not done?: No BMI screening not done: No Sexual Activity Screening ([facility] 153) Sexually active?: Yes Immunizations ([facility] 147, 117) Annual Influenza Vaccine: Yes Measles Antibody Test: No Mumps Antibody Test: No Rubella Antibody Test: No Varicella Antibody Test: No Anti Hepatitis A IgG Antigen test: No Anti Hepatitis B Virus Surface Ab test: No Fall Risk Screening ([facility] 139) Last assessed Fall Risk: 04/14/25 Fall risk assessment: 1 Fall in past year (fell last august and broke left wrist) Dementia Assessment ([facility] 149) Cognitive assessment recorded: Yes Assessment of cognition with standardized tool: Yes (0/28 on 6 CIT ) Depression/Bipolar (159/160/161/177) PHQ-9: Total score: 0 Ophthalmol:Cataracts Visual Acuity (133) Visual acuity exam performed: Yes (see results) Coding Level of Care Code Medicare IPPE (G0402) Est Pt Level 4 (79598) Diagnoses Encounter for initial annual wellness visit (AWV) in Medicare patient Z00.00 ACP (advance care planning) Z71.89 Family history of breast cancer Z80.3 Bilateral hearing loss, unspecified hearing loss type H91.93 Hearing loss type: unspecified Laterality: bilateral Tobacco dependence F17.200 Mixed hyperlipidemia E78.2 Hyperlipidemia type: mixed hyperlipidemia Full code status Z78.9 Coronary artery disease involving [place] coronary artery of [place] heart without angina pectoris I25.10 Coronary Disease-Associated Artery/Lesion type: [place] artery [place] vs. transplanted heart: [place] heart Associated angina: without angina PVD (peripheral vascular disease) I73.9 Influenza vaccination declined Z28.21 Pneumococcal vaccination declined Z28.21 Herpes zoster vaccination declined Z28.21 CPT Codes Advance Care Planning - Time spent: 16-45 minutes ([id number]) EKG - CPT: 22721-Wdasojtzshbbumduj, Complete ([id number]) Vision Screening - Vision Screenin - Vision Screening ([id number]) Additional Codes PHQ-9 - 81861 - PHQ-9 Billing: Yes ([id number]) Advance Care Planning Advance Care Planning discussion: Exists, not on file Date of discussion: 04/14/25 Who was present: self Forms completed: Health Care Proxy, MOLST and Living will Time spent: 16-45 minutes Actual minutes spent: 16
[2025-04-14 15:00] VITALS: BP 122/70; PULSE 75; RESP 12; TEMP 36.2; O2SAT 98; BMI 20.4
--- OUTSIDE RECORDS SUMMARY | 2025-04-14 18:17 | XMS_ITS | Clinical Summary ---
Author Organization [facility] Address [address] [place] [address] Phone Care Team Providers Care Replenishment Merchandising Associate Name Role Phone Shirley Crespo NP Primary [...] Alive Daughter 2 Alive Father (Age 59) [place] Mother (Age 87) Sibling Sister 1 Alive [...] FOBT 2000 SIGMOIDOSCOPY 2000 VIRTUAL COLONOSCOPY 2000 RSV VACCINE (1 - Risk 50-74 years 1-dose series) 2005 ZOSTER VACCINES (1 of 2) 2005 PNEUMOCOCCAL VACCINES (50+ years) (3 of 3 [...] * OUTSIDE BONE DENSITY SCREENING (07/14/2023) Pathologist [facility] BONE DENSITY SCREENING - EXTERNAL osteopenia Historical Provider HEALTH MAINTENANCE Final Result * MAMMOGRAPHY FOR RESULT ENTRY ONLY (07/04/2023 4:48 PM EST) Nguyen Dewitt NP HEALTH MAINTENANCE Final Result * Hepatitis C antibody, qualitative (03/08/2021) Nguyen Dewitt NP LAB BLOOD ORDERABLES Edited Res ult - Final * Outside HDL (03/08/2021) Pathologist [facility] HDL - External 79 40 - 80 mg/dL Historical Provider LAB BLOOD ORDERABLES Cris l Result * COLONOSCOPY FOR RESULT ENTRY ONLY (03/20/2020) Pathologist [facility] Colonoscopy 5 yr recall Historical Provider HEALTH MAINTENANCE Final Result from Last 3 Months or Most Recently Relevant to Health Maintenance Insurance MEDICARE PPO BLUE REPLACEMENT . [address] MEDICARE PPO BLUE REPLACEMENT MEDICARE PPO BLUE REPLACEMENT [facility] MEDICARE PPO BLUE REPLACEMENT [facility] MEDICARE PPO BLUE REPLACEMENT Care Teams Replenishment Merchandising Associate Relationship Specialty Start Date End Date Shirley Crespo NP [address] [place] [address] [email or web address] PCP - General Nurse Practitioner 11/29/24 Additional Source Comments The information contained in this document represents components of the legal health record. It is not the complete legal health record.[facility]
--- OUTSIDE RECORDS SUMMARY | 2025-04-14 18:17 | XMS_ITS | Patient Health Record ---
Author Organization [facility] Address [address] [place] [address] Care Team Providers Care Hooker Laster Name Role Phone Shirley Kemp Primary Care Provider Luis Antonio Ho Unavailable [phone] Allergies No Known Allergies Results Component Value Reference Range Notes NM hepatobiliary w pharm Reviewed date:01/12/2025 10:35:17 PM Interpretation: Performing Lab: Notes/Report: [address] [place] [address] Nuclear Medicine Report Signed Patient: Florentin Alba MR#: [id number] : 1955 Acct:[id number] Age/Sex: 69 / F ADM Date: 12/03/24 Loc: PO Attending Dr: Shirley DÍAZ Ordering Physician: Shirley Kemp Date of Service: 12/03/24 Procedure(s): MD hepatobiliary w pharm Accession Number(s): [id number] cc: Shirley Kemp; Luis Antonio Strong MD EXAMINATION: MD BILIARY TRACT CLINICAL INFORMATION: Unspecified shoulder pain [...] 12/03/24 1103 DD/ 0817 TD/TT: 12/03/24 1000 Gis Mapping Technician: [facility] Reason For Referral No Information Medications Medication SIG (Take, Route, Frequency, Duration) Notes Start Date End Date Status Atorvastatin Calcium 20 MG 1 tablet Orally Once a day Active Vitamin D 50 MCG (1999 UT) 1 tablet Orally Once a day; Duration: 30 day(s) Active Lindsay 3 1000 MG 1 capsule Orally Onc e a day; Duration: 30 day(s) Not-Taking Coral Lioqhnb-Dmeqqkqrv-Lzz D 250-125-200 MG-MG-UNIT 2 capsules with a meal Orally Once a day; Duration: 30 day(s) Active Omeprazole 40 MG Oral; Duration: 90 Days Active Immunizations Vaccine Route Administration [...] Problem Status W/U Status Risk Notes Problem Screening for malignant neoplasm of colon ([id number]) Encounter for screening for malignant neoplasm of colon (Z12.11) Active confirmed Problem History of adenomatous polyp of colon (856463271) History of adenomatous polyp of colon (Z86.010) Active confirmed Problem Preprocedural examination ([id number]) Preprocedural examination (Z01.818) Active confirmed Problem Left upper quadrant pain (134160574) Abdominal pain, acute, left upper quadrant (R10.12) Active confirmed Vital Signs Blood pressure diastolic 77 mm Hg 02/06/2025 Height 65.5 in 02/06/2025 Blood pressure systolic 111 mm Hg 02/06/2025 Weight 120 lbs 02/06/2025 BMI 19.66 kg/m2 02/06/2025 Procedures Procedure Date Ordered Date Performed Result Body Sit e UPPER GI ENDOSCOPY 02/06/2025 N/A COLONOSCOPY 02/06/2025 N/A Encounters Encounter Location Date Provider Diagnosis [facility] [address] [place] [phone] 02/06/2025 Luis Antonio Strong History of adenomato us polyp of colon Z86.010 ; Abdominal pain, acute, left upper quadrant R10.12 and Encounter for screening for malignant neoplasm of colon Z12.11 [facility] [address] [place] [phone] 12/06/2024 Luis Antonio Strong Assessments Encounter Date [...] will obtain a clearance note from her home appliances mechanic as she has an appointment coming up [...] will obtain a clearance note from her home appliances mechanic as she has an appointment coming up [...] will obtain a clearance note from her home appliances mechanic as she has an appointment coming up [...] Name:Luis Antonio Strong , 05/19/2025 07:30:00 AM, [address] [place] [address] , [place], [place], [phone], Insurance Providers Payer Name Payer Address Payer Phone Subscriber Number Group Number Insured Name Patient Relationship to Insured Coverage Start Date Coverage End Date [facility] [address] [place] [address] [id number] FLORENTIN ALBA Self - patient is the insured Medical (General) History Medical History History ICD Code Screening Colonoscopy 2007- 1 tubular adenoma removed- mild sigmoid diverticulosis; neg. colonoscopy in 07/2013 Osteoporosis COPD Denies CO,DM,CVA,renal disease Depression/anxiety Over-active bladder Hyperlipidemia Negative screening colonoscopy in 0 Surgical History Surgery Date(Month/Year) Oral surgery
== END 2025-04-14 15:57 | disposition home or self-care (01) ==
LOC: HO.HMCFM 14:50
PROVIDERS: PCP Nurse Practitioner Family; Visit Provider Nurse Practitioner Family
DX: Z00.00 Encounter for general adult medical examination without abnormal findings (principal); I25.10 Atherosclerotic heart disease of native coronary artery without angina pectoris; I73.9 Peripheral vascular disease, unspecified; H91.93 Unspecified hearing loss, bilateral; E78.2 Mixed hyperlipidemia; Z71.89 Other specified counseling; Z80.3 Family history of malignant neoplasm of breast; F17.200 Nicotine dependence, unspecified, uncomplicated; Z78.9 Other specified health status; Z28.21 Immunization not carried out because of patient refusal

== ENCOUNTER → 2025-04-14 14:48 | Outpatient (BNVA) | payer MEDICARE, SELFPAY | PROVIDERS: PCP Nurse Practitioner Family; Visit Provider Nurse Practitioner Family | DX: Z00.00 Encounter for general adult medical examination without abnormal findings (principal); K21.9 Gastro-esophageal reflux disease without esophagitis; E78.5 Hyperlipidemia, unspecified; I25.10 Atherosclerotic heart disease of native coronary artery without angina pectoris; M85.80 Other specified disorders of bone density and structure, unspecified site; H91.93 Unspecified hearing loss, bilateral; E78.2 Mixed hyperlipidemia; I73.9 Peripheral vascular disease, unspecified; H91.90 Unspecified hearing loss, unspecified ear; F17.210 Nicotine dependence, cigarettes, uncomplicated; Z78.9 Other specified health status; Z80.3 Family history of malignant neoplasm of breast; Z28.21 Immunization not carried out because of patient refusal; Z71.89 Other specified counseling | CPT/HCPCS: 93005; 96127; 99497; G0402 ==

== ENCOUNTER 2025-04-15 14:43 | Outpatient (AMB) | payer MEDICARE, SELFPAY ==
--- OUTSIDE RECORDS SUMMARY | 2024-11-19 10:15 | XMS_ITS | Continuity of Care Document ---
Author Organization [facility] Address [address] [place] [address] Phone Care Team Providers Care Eyeglass Frame Truer Name Role Phone [place] KRISSYDarren Unavailable Unavailable Allergies, Adverse Reactions, Alerts [...] Diagnoses Date Provider Providers Copied on Encounter [facility], [address], [place], [place], [address], [place] tel:[phone] [facility] [employer] [facility] problem (chief complaint) Foreign body in conjunctival sac, left eye, init encntr Lavern Banks. [address], [place], [address], [place]. tel:[phone] Referring Provider: Darren Puckett OD, [address], [place], [address]. tel:[phone] [facility], [address], [place], [place], [address], [place] tel:[phone] [facility] No Information Lavern Banks. [address], [place], [address], [place]. tel:[phone] Family History Family Member Type Diagnosis Age At Onset No Information Payers Payer name Insurance type Covered alliance party ID Authoriza tion(s) [facility] BL [id number] Social History Type Description Quantity Date [...]
[2025-04-15 14:46] VITALS: BP 114/68; PULSE 86; O2SAT 98; BMI 20.3
--- NOTE | 2025-04-15 14:46 | MHC.OFFWIV ---
Intake Vital Signs 04/15/25 14:46 Height 5 ft 6 in Weight 126 lb BMI 20.3 BP 114/68 Blood Pressure Location Lt brachial Position Sitting Pulse 86 Pulse Source Pulse Oximeter Pulse Oximetry (%) 98 Oxygen Delivery Method Room Air Intake Visit Reasons: EP-lt eye conjuntivitis Intake Note: Patient presents with c/o left eye redness, watery since this morning - ? conjunctivitis Patient Tobacco Use Status: Current everyday Tobacco user Allergies doxycycline Allergy (Severe, Verified 04/15/25 14:49) Itching HPI HPI Comments History of Present Illness Details History of Present Illness - The patient is a 70-year-old female presenting with symptoms of conjunctivitis in the left eye. - Symptoms began this morning with heaviness and blurriness in the left eye. - No crusting or discharge was noted upon waking, and there is no history of trauma to the eye. - The eye feels blurry and slightly itchy, with redness developing throughout the day. - The patient uses eye drops for dry eyes and is familiar with proper application techniques. - She denies fever, chills, cold symptoms, MORAN, trauma, contact lens, runny nose, sore throat, or cough. - She has no symptoms in the right eye. Physical Exam General: Cooperative, healthy appearing, comfortable, no acute distress and well developed Orientation: Patient oriented x3 Limitations: No limitations Head: Normal to inspection Ears: Hearing grossly normal bilaterally Nose: Normal external nose present Face and sinus: Normal facial exam Eyes: No swelling to the upper and lower eyelids. Sclera is pink on the left, conjunctivae is pink on the left. Clear discharge noted. No FB noted. PERRLA, EOMI. Respiratory: Normal respiratory effort and able to speak in complete sentences. Clear to auscultation bilaterally Cardiovascular: Regular rate and rhythm. Normal S1 and S2 Patient was informed and verbally consented to the use of an ambient scribe for clinic note documentation during this visit. [facility] Medical History (Updated 04/14/25 @ 16:10 by RBE Clement) Nondisplaced fracture of distal end of radius Strain of left wrist Skin cancer Overactive bladder Hyperlipemia Anxiety Depression COPD (chronic obstructive pulmonary disease) Osteoporosis Surgical History (Updated 04/14/25 @ 16:10 by Shirley L O'Manjit, COMB SETTER-BC) H/O oral surgery Hx of colonoscopy (~2019) Family History Mother High cholesterol Colon cancer Father Cardiovascular disease Sister Breast cancer Social History Household Members: None Both parents involved: No Caregiver staying overnight: No Housing: House Are you a primary auto care center manager to a significant other at home: No Do you presently have visiting nurse or other home services: No 75 years or older and lives alone: No Alcohol intake: current Alcohol intake frequency: 0-2 drinks per day Alcohol type: wine Patient Tobacco Use Status: Current everyday Tobacco user Tobacco use type: Cigarette Cigarette Packs Per Day: 0.5 Cigarettes Per Day: 10.0 e-Cigarette/Vaping Use: Never Used Advance Directives Date on File: 08/31/20 service: No Current occupational status: employed Current occupation: [employer] Cognitive needs: No Hearing needs: Yes (has hearing aid) Vision needs: Yes (wear glasses) Review of Systems Const All systems reviewed & are unremarkable except as noted in HPI and below Physical Exam Vital Signs: Last Vital Signs Pulse 86 04/15/25 14:46 BP 114/68 04/15/25 14:46 Pulse Ox 98 04/15/25 14:46 Oxygen Delivery Method Room Air 04/15/25 14:46 BMI result Body Mass Index 20.3 Assessment & Plan Assessment & Plan (1) Conjunctivitis: Code(s): H10.9 - Unspecified conjunctivitis Qualifiers: Conjunctivitis type: acute Acute conjunctivitis type: bacterial Laterality: left Qualified Code(s): H10.32 - Unspecified acute conjunctivitis, left eye Plan Most likely conjunctivitis plan - Prescribed antibiotic eye drops for five days to treat both eyes due to high risk of spread. - Advised on hygiene measures, including washing pillowcases and hands frequently. - Recommended avoiding close contact with others to prevent contagion. Medications: New polymyxin B sulf-trimethoprim 10,000 unit- 1 mg/mL while awake 1 drp ophthalmic-Right QID 10 mL 0RF 5 days Coding Level of Care Code Est Pt Level 3 (74850) Diagnoses Acute bacterial conjunctivitis of left eye H10.32 Conjunctivitis type: acute Acute conjunctivitis type: bacterial Laterality: left
--- OUTSIDE RECORDS SUMMARY | 2025-04-15 19:10 | XMS_ITS | Clinical Summary ---
Author Organization [facility] Address [address] [place] [address] Phone Care Team Providers Care Extruder Operator Vertical Name Role Phone Shirley Crespo NP Primary [...] Alive Daughter 2 Alive Father (Age 59) [place] Mother (Age 87) Sibling Sister 1 Alive [...] OUTSIDE BONE DENSITY SCREENING (07/14/2023) Pathologist [facility] BONE DENSITY SCREENING - EXTERNAL osteopenia Historical Provider HEALTH MAINTENANCE Final Result * MAMMOGRAPHY FOR RESULT ENTRY ONLY (07/04/2023 4:48 PM EST) Nguyen Dewitt NP HEALTH MAINTENANCE Final Result * Hepatitis C antibody, qualitative (03/08/2021) Nguyen Dewitt NP LAB BLOOD ORDERABLES Edited Res ult - Final * Outside HDL (03/08/2021) Pathologist [facility] HDL - External 79 40 - 80 mg/dL Historical Provider LAB BLOOD ORDERABLES Cris l Result * COLONOSCOPY FOR RESULT ENTRY ONLY (03/20/2020) Pathologist [facility] Colonoscopy 5 yr recall Historical Provider HEALTH MAINTENANCE Final Result from Last 3 Months or Most Recently Relevant to Health Maintenance Insurance MEDICARE PPO BLUE REPLACEMENT . [address] MEDICARE PPO BLUE REPLACEMENT MEDICARE PPO BLUE REPLACEMENT [facility] MEDICARE PPO BLUE REPLACEMENT [facility] MEDICARE PPO BLUE REPLACEMENT Care Teams Extruder Operator Vertical Relationship Specialty Start Date End Date Shirley Crespo NP [address] [place] [address] [email or web address] PCP - General Nurse Practitioner 11/29/24 Additional Source Comments The information contained in this document represents components of the legal health record. It is not the complete legal health record.[facility]
--- OUTSIDE RECORDS SUMMARY | 2025-04-15 19:10 | XMS_ITS ---
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 She was seen on March 20, 2025, at which time Mohs Surgery (Repair: Complex Repair) was performed.The patient presents for suture removal.Today the patient reports: Quality: noredness, no drainage, no swelling, not malodorous, and no pain. Medications Medication Generic Name RxNorm Strength Strength Unit Route Dose Dose Form Frequency Date Started Date Ended Status Indication Sig cyclosporin e 1235908 0.05 % Ophtha lmic (eye) Dropp erett e active Restasis 0.05 % Ophtha lmic (eye) 1 Dropp erett e prn suspend ed atorvastati n 20 mg Oral 1 table t daily active omeprazole 799336 40 mg Oral 1 capsu le,de layed relea se (ente malcolm reed d) daily active Problems Problem Code Type Status Date of Diagnosis Date of Resolution Surgical follow-up (finding) 359685900(S NOMED) Diagnosis active 04/11/2025 Surgical follow-up (finding) 335943836(S NOMED) Diagnosis active 04/03/2025 Squamous cell carcinoma of skin of lower extremity (disorder) 547561066(S NOMED) Diagnosis active 03/27/2025 Squamous cell carcinoma of skin of lower extremity (disorder) 920276993(S NOMED) Diagnosis active 03/20/2025 Neoplasm of uncertain behavior of skin (disorder) 61504379(SN OMED) Diagnosis active 02/19/2025 Actinic keratosis (disorder) 542879714(S NOMED) Diagnosis active 02/19/2025 Inflamed seborrheic keratosis (disorder) 690831162(S NOMED) Diagnosis active 02/19/2025 Disorder of pigmentation (disorder) 046617852(S NOMED) Diagnosis active 02/19/2025 Actinic keratosis (disorder) (S NOMED) Diagnosis active 08/19/2024 Melanocytic nevus of skin of face (disorder) 5959138504( SNOMED) Diagnosis active 08/19/2024 Disorder of pigmentation (disorder) 349145570(S NOMED) Diagnosis active 08/19/2024 Seborrheic keratosis (disorder) 717416367(S NOMED) Diagnosis active 08/19/2024 Hemangioma of skin and subcutaneous tissue (disorder) 511385701(S NOMED) Diagnosis active 08/19/2024 Scar conditions and fibrosis of skin (disorder) 271025496(S NOMED) Diagnosis active 08/19/2024 Non-thrombocytopenic purpura (disorder) 341139855(S NOMED) Diagnosis active 08/19/2024 Melanocytic nevus of left lower limb (disorder) 55818017042 9106(SNOMED ) Diagnosis active 08/19/2024 Melanocytic nevus of right lower limb (disorder) 22171448533 9108(SNOMED ) Diagnosis active 08/19/2024 Patient encounter status (finding) 947616127(S NOMED) Diagnosis active 08/19/2024 Neoplasm of uncertain behavior of skin (disorder) 06938747(SN OMED) Diagnosis active 03/22/2024 Surgical follow-up (finding) 185078884(S NOMED) Diagnosis active 01/05/2024 Squamous cell carcinoma of skin of face (disorder) 931239748(S NOMED) Diagnosis active 12/26/2023 Neoplasm of uncertain behavior of skin (disorder) 96307828(SN OMED) Diagnosis active 11/27/2023 Actinic keratosis (disorder) (S NOMED) Diagnosis active 11/27/2023 Seborrheic keratosis (disorder) 575816281(S NOMED) Diagnosis active 11/27/2023 Inflammatory dermatosis (disorder) 849305836(S NOMED) Diagnosis active 11/27/2023 Scar conditions and fibrosis of skin (disorder) 851908583(S NOMED) Diagnosis active 11/27/2023 Patient encounter status (finding) 738217284(S NOMED) Diagnosis active 11/27/2023 Inflammatory dermatosis (disorder) 142299197(S NOMED) Diagnosis active 09/21/2023 Inflammatory dermatosis (disorder) 038836171(S NOMED) Diagnosis active 09/08/2023 Inflammatory dermatosis (disorder) 982765214(S NOMED) Diagnosis active 09/07/2023 Surgical follow-up (finding) 496027747(S NOMED) Diagnosis active 07/27/2023 Surgical follow-up (finding) 713292314(S NOMED) Diagnosis active 07/20/2023 Surgical follow-up (finding) 074425844(S NOMED) Diagnosis active 07/13/2023 Squamous cell carcinoma of skin of lower extremity (disorder) 653639740(S NOMED) Diagnosis active 07/07/2023 Neoplasm of uncertain behavior of skin (disorder) 68553545(SN OMED) Diagnosis active 06/05/2023 Actinic keratosis (disorder) (S NOMED) Diagnosis active 06/05/2023 Melanocytic nevus of face (disorder) 685048703(S NOMED) Diagnosis active 06/05/2023 Inflamed seborrheic keratosis (disorder) 283648409(S NOMED) Diagnosis active 06/05/2023 Scar conditions and fibrosis of skin (disorder) 697165086(S NOMED) Diagnosis active 06/05/2023 Seborrheic keratosis (disorder) 940201239(S NOMED) Diagnosis active 06/05/2023 Disorder of pigmentation (disorder) 546881344(S NOMED) Diagnosis active 06/05/2023 Melanocytic nevus of left lower limb (disorder) 01099244434 9106(SNOMED ) Diagnosis active 06/05/2023 Hemangioma of skin and subcutaneous tissue (disorder) 701821409(S NOMED) Diagnosis active 06/05/2023 Non-thrombocytopenic purpura (disorder) 885231674(S NOMED) Diagnosis active 06/05/2023 Patient encounter status (finding) 009453432(S NOMED) Diagnosis active 06/05/2023 Actinic keratosis (disorder) (S NOMED) Diagnosis active 11/23/2022 Patient encounter status (finding) 806963101(S NOMED) Diagnosis active 11/23/2022 History of malignant neoplasm of skin (situation) 634365542(S NOMED) Diagnosis active 08/11/2022 Actinic keratosis (disorder) (S NOMED) Diagnosis active 08/11/2022 Patient encounter status (finding) 127443355(S NOMED) Diagnosis active 08/11/2022 History of malignant neoplasm of skin (situation) 124004786(S NOMED) Diagnosis active 04/04/2022 Actinic keratosis (disorder) (S NOMED) Diagnosis active 04/04/2022 Melanocytic nevus of lower limb (disorder) 939318396(S NOMED) Diagnosis active 04/04/2022 Seborrheic keratosis (disorder) 435952972(S NOMED) Diagnosis active 04/04/2022 Hemangioma of skin and subcutaneous tissue (disorder) 389833184(S NOMED) Diagnosis active 04/04/2022 Disorder of pigmentation (disorder) 696120030(S NOMED) Diagnosis active 04/04/2022 Non-thrombocytopenic purpura (disorder) 860125500(S NOMED) Diagnosis active 04/04/2022 Patient encounter status (finding) 201280965(S NOMED) Diagnosis active 04/04/2022 Actinic keratosis (disorder) (S NOMED) Diagnosis active 09/17/2021 Disorder of pigmentation (disorder) 445577765(S NOMED) Diagnosis active 09/17/2021 Actinic keratosis (disorder) (S NOMED) Diagnosis active 03/10/2021 Skin changes due to chronic exposure to non-ionizing radiation (disorder) 672040785(S NOMED) Diagnosis active 03/10/2021 Seborrheic keratosis (disorder) 638946616(S NOMED) Diagnosis active 03/10/2021 Non-thrombocytopenic purpura (disorder) 086943060(S NOMED) Diagnosis active 03/10/2021 Patient encounter status (finding) 379538551(S NOMED) Diagnosis active 03/10/2021 Personal history of other malignant neoplasm of skin Z85.828(ICD -10) Diagnosis active 09/02/2020 Actinic keratosis L57.0(ICD-1 0) Diagnosis active 09/02/2020 Hemangioma of skin and subcutaneous tissue D18.01(ICD- 10) Diagnosis active 09/02/2020 Other melanin hyperpigmentation L81.4(ICD-1 0) Diagnosis active 09/02/2020 Melanocytic nevi of right lower limb, including hip D22.71(ICD- 10) Diagnosis active 09/02/2020 Other specified counseling Z71.89(ICD- 10) Diagnosis active 09/02/2020 Actinic keratosis L57.0(ICD-1 0) Diagnosis active 03/02/2020 Other melanin hyperpigmentation L81.4(ICD-1 0) Diagnosis active 03/02/2020 Other specified counseling Z71.89(ICD- 10) Diagnosis active 03/02/2020 Personal history of other malignant neoplasm of skin Z85.828(ICD -10) Diagnosis active 08/28/2019 Actinic keratosis L57.0(ICD-1 0) Diagnosis active 08/28/2019 Hemangioma of skin and subcutaneous tissue D18.01(ICD- 10) Diagnosis active 08/28/2019 Melanocytic nevi, unspecified D22.9(ICD-1 0) Diagnosis active 08/28/2019 Other melanin hyperpigmentation L81.4(ICD-1 0) Diagnosis active 08/28/2019 History of malignant neoplasm of skin (situation) 361093914(S NOMED) Diagnosis active 10/18/2017 Senile hyperkeratosis (disorder) 159117900(S NOMED) Diagnosis active 08/11/2017 Surgical follow-up (finding) 622749712(S NOMED) Diagnosis active 07/27/2017 Basal cell carcinoma of truncal skin (disorder) 824511542(S NOMED) Diagnosis active 07/13/2017 Itching of skin (finding) 330385169(S NOMED) Diagnosis active 07/11/2017 Basal cell carcinoma of truncal skin (disorder) 213767568(S NOMED) Diagnosis active 06/06/2017 Neoplasm of uncertain behavior of skin (disorder) 20550002(SN OMED) Diagnosis active 04/26/2017 Exposure to excess sunlight (event) 948269374(S NOMED) Diagnosis active 08/13/2015 Solar lentigo (disorder) 98847728(SN OMED) Diagnosis active 04/07/2015 Actinic keratosis (disorder) 165152852(S NOMED) Problem active Basal cell carcinoma of skin (disorder) 766826037(S NOMED) Problem active Anxiety disorder (disorder) 360300014(S NOMED) Problem active Hearing loss (disorder) 39884015(SN OMED) Problem active Squamous cell carcinoma (disorder) 010589482(S NOMED) Problem active Results No data Encounters Service provided at [facility], [address] [place] [address], [address], [place], [place] [id number]. Office phonenumber is [phone]. Office fax number is [phone]. Encounter Diagnosis Location Date / Time Type Post-Operative Wound Check (Z48.817) [facility] 03/20 18:00:00 UTC [address] Reason For Referral No data Procedures Procedure Date Removal of suture (procedure) 04/11/2025 12:00 am UTC Strapping of Unna boot (procedure) 03/27 12:00 am UTC Mohs surgery (procedure) 03/20/2025 12:0 0 am UTC Destruction of premalignant skin lesion (procedure) 02/19/2025 12:00 am UTC Shave biopsy (procedure) 02/19/2025 12:0 0 am UTC Documentation of current medications (pr ocedure) 08/19/2024 12:00 am UTC Destruction of premalignant skin lesion (procedure) 08/19/2024 12:00 am UTC Shave biopsy (procedure) 03/22/2024 12:0 0 am UTC Smoking cessation education (procedure) 12/26/2023 12:00 am UTC Smoking effects education (procedure) 12:00 am UTC Mohs surgery (procedure) 12/26/2023 12:0 0 am UTC Destruction of premalignant skin lesion (procedure) 11/27/2023 12:00 am UTC Shave biopsy (procedure) 11/27/2023 12:0 0 am UTC Smoking cessation education (procedure) 09/21/2023 12:00 am UTC Shave biopsy (procedure) 09/08/2023 12:0 0 am UTC Strapping of Unna boot (procedure) 07/13 12:00 am UTC Smoking effects education (procedure) 12:00 am UTC Mohs surgery (procedure) 07/07/2023 12:0 0 am UTC Shave biopsy (procedure) 06/05/2023 12:0 0 am UTC Destruction of premalignant skin lesion (procedure) 06/05/2023 12:00 am UTC Cryotherapy of skin lesion with liquid n itrogen (procedure) 11/23/2022 12:00 am UTC Cryotherapy of skin lesion with liquid n itrogen (procedure) 08/11/2022 12:00 am UTC Cryotherapy of skin lesion with liquid n itrogen (procedure) 04/04/2022 12:00 am UTC Cryotherapy of skin lesion with liquid n itrogen (procedure) 09/17/2021 12:00 am UTC Cryotherapy of skin lesion with liquid n itrogen (procedure) 03/10/2021 12:00 am UTC Cryotherapy of skin lesion with liquid n itrogen (procedure) 09/02/2020 12:00 am UTC Cryotherapy of skin lesion with liquid n itrogen (procedure) 03/02/2020 12:00 am UTC Documentation of past medical history (p rocedure) Review Of Systems No Data Assessment 1.Post-Operative Wound CheckSuture Removal (Global Period) Plan of Care Code Detail Instructions 7022904 doxycycline hyclate 100 mg capsu le Take one pill twice a day for 5 days with food and water. 008050 clobetasol 0.05 % topical cream Apply twice daily to rash on leg for 2 weeks on, then take 1 week off. Repeat as needed. Avoid face or body folds. Instructions No Data Social History Code Activity Start Date End Date [facility]0123 [facility] Current every day smoker Sex female Sexual orientation Unspecified Gender identity Unspecified Vital Signs No data
--- OUTSIDE RECORDS SUMMARY | 2025-04-15 19:11 | XMS_ITS | Patient Health Record ---
Author Organization [facility] Address [address] [place] [address] Care Team Providers Care Fisher Weir Name Role Phone Shirley Kemp Primary Care Provider Luis Antonio Ho Unavailable [phone] Allergies No Known Allergies Results Component Value Reference Range Notes [place] hepatobiliary w pharm Reviewed date:01/12/2025 10:35:17 PM Interpretation: Performing Lab: Notes/Report: [address] [place] [address] Nuclear Medicine Report Signed Patient: Florentin Alba MR#: [id number] : 1955 Acct:[id number] Age/Sex: 69 / F ADM Date: 12/03/24 Loc: [facility] Attending Dr: Shirley DÍAZ Ordering Physician: Shirley Kemp Date of Service: 12/03/24 Procedure(s): [facility] hepatobiliary w pharm Accession Number(s): [id number] cc: Shirley Kemp; Luis Antonio Strong MD EXAMINATION: [place] BILIARY TRACT CLINICAL INFORMATION: Unspecified shoulder pain [...] 12/03/24 1103 DD/ 0817 TD/TT: 12/03/24 1000 [place] Office [place] [facility] [place] Ref[place] No Information Medications Medication SIG (Take, Route, Frequency, Duration) Notes Start Date End Date Status Atorvastatin Calcium 20 MG 1 tablet Orally Once a day Active Vitamin D 50 MCG (1999 [place]) 1 tablet Orally Once a day; Duration: 30 day(s) Active [place] 3 1000 MG 1 capsule Orally Onc e a day; Duration: 30 day(s) Not-Taking Coral Qcdgzrb-Zmpeipdrm-Ymj D 250-125-200 MG-MG-UNIT 2 capsules with a [...] Problem Screening for malignant neoplasm of colon (582960655) Encounter for screening for malignant neoplasm of colon (Z12.11) Active confirmed Problem History of adenomatous polyp of colon (016427757) History of adenomatous polyp of colon (Z86.010) Active confirmed Problem Preprocedural examination (876535983933627) Preprocedural examination (Z01.818) Active confirmed Problem Left upper quadrant pain (519979291) Abdominal pain, acute, left upper quadrant (R10.12) Active confirmed Vital Signs Blood pressure diastolic 77 mm Hg 02/06/2025 Height 65.5 in 02/06/2025 Blood pressure systolic 111 mm Hg 02/06/2025 Weight 120 lbs 02/06/2025 BMI 19.66 kg/m2 02/06/2025 Procedures Procedure Date Ordered Date Performed Result Body Sit e UPPER GI ENDOSCOPY 02/06/2025 N/A COLONOSCOPY 02/06/2025 N/A Encounters Encounter Location Date Provider Diagnosis [facility] [address] [place] [phone] 02/06/2025 Luis Antonio Strong History of adenomato us polyp of colon Z86.010 ; Abdominal pain, acute, left upper quadrant R10.12 and Encounter for screening for malignant neoplasm of colon Z12.11 [facility] [address] [place] [phone] 12/06/2024 Luis Antonio Strong Assessments Encounter Date [...] will obtain a clearance note from her gunner mate as she has an appointment coming up [...] will obtain a clearance note from her gunner mate as she has an appointment coming up [...] will obtain a clearance note from her gunner mate as she has an appointment coming up [...] Name:Luis Antonio Strong , 05/19/2025 07:30:00 AM, [address] [place] [address] , [place], [place], [id number], Insurance Providers Payer Name Payer Address Payer Phone Subscriber Number Group Number Insured Name Patient Relationship to Insured Coverage Start Date Coverage End Date [facility] [address] [place] [address] [id number] FLORENTIN ALBA Self - patient is the insured Medical (General) History Medical History History ICD Code Screening Colonoscopy 2007- 1 tubular adenoma removed- mild sigmoid diverticulosis; neg. colonoscopy in 07/2013 Osteoporosis COPD Denies [place],DM,CVA,renal disease Depression/anxiety Over-active bladder Hyperlipidemia Negative screening colonoscopy in 0 Surgical History Surgery Date(Month/Year) Oral surgery
== END 2025-04-15 15:27 | disposition home or self-care (01) ==
PROVIDERS: PCP Nurse Practitioner Family; Visit Provider Physician Assistant Medical
DX: H10.32 Unspecified acute conjunctivitis, left eye (principal)

== ENCOUNTER → 2025-04-15 14:43 | Outpatient (BNVA) | payer MEDICARE, SELFPAY | PROVIDERS: PCP Nurse Practitioner Family; Visit Provider Physician Assistant Medical | DX: H10.32 Unspecified acute conjunctivitis, left eye (principal) | CPT/HCPCS: 99212 ==

== ENCOUNTER 2025-04-17 13:59 | Outpatient (AMB) | payer MEDICARE, SELFPAY ==
--- OUTSIDE RECORDS SUMMARY | 2024-11-19 10:15 | XMS_ITS | Continuity of Care Document ---
Author Organization [facility] Address [address] [place] [address] Phone Care Team Providers Care Cement Sack Breaker Name Role Phone [place] KRISSYDarren Unavailable Unavailable Allergies, Adverse Reactions, Alerts [...] Diagnoses Date Provider Providers Copied on Encounter [facility], [address], [place], [place], [address], [place] tel:[phone] [facility] problem (chief complaint) Foreign body in conjunctival sac, left eye, init encntr Lavern Banks. [address], [place], [address], [place]. tel:[phone] Referring Provider: Darren Puckett OD, [address], [place], [address]. tel:[phone] [facility], [address], [place], [place], [address], [place] tel:[phone] [facility] No Information Lavern Banks. [address], [place], [address], [place]. tel:[phone] Family History Family Member Type Diagnosis Age At Onset No Information Payers Payer name Insurance type Covered green party ID Authoriza tion(s) [facility] BL [id number] Social History Type Description Quantity Date [...]
[2025-04-17 14:16] VITALS: BP 124/72; PULSE 76; BMI 20.3
--- NOTE | 2025-04-17 14:16 | MHC.OFFVIS ---
Vital Signs 04/17/25 14:16 Height 5 ft 6 in Weight 125 lb 10.616 oz BMI 20.3 BP 124/72 Blood Pressure Location Lt brachial Position Sitting Pulse 76 Intake Visit Reasons: new patient hx cad seen on CT Intake Note: New patient hx CAD seen on CT had ekg today feelng good Waredresser Required: No Allergies doxycycline Allergy (Severe, Verified 04/15/25 14:49) Itching Medication List - Last Reconciled 04/17/25 by Dmitriy Claudio MD atorvastatin 20 mg PO BEDTIME calcium-mag oxide-vitamin D3 250-125-200 mg-mg-unit 2 caps PO cholecalciferol (vitamin D3) (Vitamin D3) 50 mcg PO DAILY cyclosporine 0.05% (Restasis) drps ophthalmic (eye) omega-3 fatty acids-fish oil 684-1,200 mg 1 cap PO DAILY omeprazole 40 mg PO DAILY polymyxin B sulf-trimethoprim 10,000 unit- 1 mg/mL 1 drp ophthalmic-Right QID 5 days sennosides (senna) 8.6 mg PO BID PRN HPI Comments Details: Sarah was referred here for evaluation of elevated calcium noted in the coronary artery on noncardiac related CT scan for chest done for lung cancer. She subsequently had a recent myocardial perfusion imaging which was within normal limits at high workload suggestive of nonobstructive coronary artery disease. She has no active cardiac symptoms with no symptoms exertional chest pain or worsening shortness of breath. She does not have history of hyperlipidemia for which she has been started on atorvastatin 20 mg daily. She had recent lipid panel which showed LDL of 107 mg/dL. She unfortunately smokes. She is trying to quit smoking. She denies any symptoms of palpitation. No symptoms of heart failure. She comes here for further evaluation for coronary calcium. [facility] Medical History Nondisplaced fracture of distal end of radius Strain of left wrist Skin cancer Overactive bladder Hyperlipemia Anxiety Depression COPD (chronic obstructive pulmonary disease) Osteoporosis Surgical History H/O oral surgery Hx of colonoscopy (~2019) Family History Mother High cholesterol Colon cancer Father Cardiovascular disease Sister Breast cancer Social History Household Members: None Both parents involved: No Caregiver staying overnight: No Housing: House Are you a primary healthcare customer service to a significant other at home: No Do you presently have visiting nurse or other home services: No 75 years or older and lives alone: No Alcohol intake: current Alcohol intake frequency: 0-2 drinks per day Alcohol type: wine Patient Tobacco Use Status: Current everyday Tobacco user Tobacco use type: Cigarette Cigarette Packs Per Day: 0.5 Cigarettes Per Day: 10.0 e-Cigarette/Vaping Use: Never Used Advance Directives Date on File: 08/31/20 service: No Current occupational status: employed Current occupation: [employer] Cognitive needs: No Hearing needs: Yes (has hearing aid) Vision needs: Yes (wear glasses) Review of Systems Const Denies chills, Denies daytime sleepiness, Denies fatigue, Denies fever(s), Denies frequent falls, Denies poor appetite, Denies snoring, Denies stops breathing during sleep, Denies weakness, Denies weight gain and Denies weight loss Eyes Denies loss of vision ENT Denies dizziness and Denies hearing loss Card Denies chest pain, Denies claudication, Denies leg edema, Denies lightheadedness, Denies palpitations, Denies dyspnea, Denies dyspnea on exertion and Denies orthopnea Resp Denies cough, Denies excessive phlegm production, Denies dyspnea, Denies dyspnea on exertion, Denies snoring and Denies wheezing GI Denies abdominal pain, Denies hematochezia, Denies change in bowel habits, Denies nausea and Denies vomiting Denies urinary frequency and Denies dysuria Musc Denies arthralgias, Denies muscle weakness and Denies numbness Skin/Breast Denies nail changes and Denies rash Neuro Denies Abnormal speech present, Denies dizziness, Denies frequent falls, Denies loss of vision, Denies memory loss, Denies numbness and Denies weakness Psych Denies depression and Denies memory loss Endo Denies fatigue and Denies palpitations Karel/Lymph Reports easy bruising and Reports other (anemia) Aller/Immun Denies wheezing Physical Exam Vital Signs: Last Vital Signs Pulse 76 04/17/25 14:16 BP 124/72 04/17/25 14:16 BMI result Body Mass Index 20.3 Const General: cooperative, comfortable, no acute distress, alert, awake and Physically active Nutritional Appearance: thin Orientation/consciousness: patient oriented x3 Limitations: no limitations HEENT Head: Yes normocephalic and Yes atraumatic Neck Neck: Yes trachea midline, Yes supple and Yes no JVD Carotids: no bruits Resp Effort & Inspection: normal respiratory effort Auscultation: clear to auscultation bilaterally Cardio Jugular venous distension: no JVD Rate: regular rate Rhythm: regular rhythm Heart sounds: S1 normal heart sound present, S2 normal heart sound present, no click, no gallops, no murmurs and no rubs GI Auscultation: normal bowel sounds Skin General skin exam: no rashes or lesions noted Neuro General: patient oriented x3 and no focal motor deficits Speech: No Abnormal speech present Extrem General: Yes no clubbing, cyanosis or edema Assessment & Plan Assessment & Plan (1) CAD (coronary artery disease): Comment: (noted on CT of lung 08/15/23 & [address] abd 11/2024) Currently on statin, LDL goal less than 70, smoking cessation Code(s): I25.10 - Atherosclerotic heart disease of [place] coronary artery without angina pectoris Category: Medical Qualifiers: Coronary Disease-Associated Artery/Lesion type: [place] artery [place] vs. transplanted heart: [place] heart Associated angina: without angina Qualified Code(s): I25.10 - Atherosclerotic heart disease of [place] coronary artery without angina pectoris Plan: CAD based on the findings of noncardiac related CT scan. This is suggestive of underlying coronary atherosclerosis. I suggested further prognostication with a coronary calcium score. Benefits of pursuing dedicated coronary calcium score was discussed with her. She wants to think about it because of the cost associated with him which is reasonable. However this will help guide further therapy in terms of whether she would require aspirin therapy in addition to her statin therapy. She has recent myocardial perfusion imaging which is within normal limits suggest nonobstructive nature of the disease. She has no symptoms. Cardiac symptoms that can happen with the obstructive coronary artery disease were discussed. For now she needs more intense lipid modification with target goal LDL less than 70 mg/dL and therefore I have taken the liberty to increase her atorvastatin to 40 mg daily and follow-up lipid panel in 2 months. Smoking cessation was discussed. She will think about it. Will follow up in the clinic if need be. Thank you for allowing me to partake in her care Orders: Orders Lipid Panel 2 Months Dmitriy Claudio MD I25.10 - Atherosclerotic heart disease of [place] coronary artery without angina pectoris Medications: New atorvastatin (Lipitor) 40 mg PO DAILY 30 tabs 1RF Dmitriy Claudio MD Changed From omeprazole 40 mg PO DAILY 90 caps 2RF To omeprazole working on stopping med 40 mg PO DAILY Shirley Kemp, [facility]- Discontinued atorvastatin Discontinued Reason: Doctor's Order 20 mg PO BEDTIME 90 tabs 2RF Coding Level of Care Code New Pt Level 3 (00323) Complex EM visit Add On G2211 Diagnoses Coronary artery disease involving [place] coronary artery of [place] heart without angina pectoris I25.10 Coronary Disease-Associated Artery/Lesion type: [place] artery [place] vs. transplanted heart: [place] heart Associated angina: without angina
--- OUTSIDE RECORDS SUMMARY | 2025-04-17 17:02 | XMS_ITS | Patient Health Record ---
Author Organization [facility] Address [address] [place] [address] Care Team Providers Care Senior Cognos Developer Name Role Phone Shirley Kemp Primary Care Provider Luis Antonio Ho Unavailable [phone] Allergies No Known Allergies Results Component Value Reference Range Notes NM hepatobiliary w pharm Reviewed date:01/12/2025 10:35:17 PM Interpretation: Performing Lab: Notes/Report: [address] [place] [address] Nuclear Medicine Report Signed Patient: Florentin Alba MR#: [id number] : 1955 Acct:[id number] Age/Sex: 69 / F ADM Date: 12/03/24 Loc: PO Attending Dr: Shirley DÍAZ Ordering Physician: Shirley Kemp Date of Service: 12/03/24 Procedure(s): ND hepatobiliary w pharm Accession Number(s): [id number] cc: Shirley Kemp; Luis Antonio Strong MD EXAMINATION: ND BILIARY TRACT CLINICAL INFORMATION: Unspecified shoulder pain [...] 12/03/24 1103 DD/ 0817 TD/TT: 12/03/24 1000 Stamper Blocker: [facility] [place] For Referral No Information Medications Medication SIG (Take, Route, Frequency, Duration) Notes Start Date End Date Status Atorvastatin Calcium 20 MG 1 tablet Orally Once a day Active Vitamin D 50 MCG (1999 UT) 1 tablet Orally Once a day; Duration: 30 day(s) Active Gunpowder 3 1000 MG 1 capsule Orally Onc e a day; Duration: 30 day(s) Not-Taking Coral Ivejyyu-Zlcibjczc-Ghb D 250-125-200 MG-MG-UNIT 2 capsules with a [...] Problem Screening for malignant neoplasm of colon (616346816) Encounter for screening for malignant neoplasm of colon (Z12.11) Active confirmed Problem History of adenomatous polyp of colon (056859896) History of adenomatous polyp of colon (Z86.010) Active confirmed Problem Preprocedural examination (586308236530790) Preprocedural examination (Z01.818) Active confirmed Problem Left upper quadrant pain (289245718) Abdominal pain, acute, left upper quadrant (R10.12) Active confirmed Vital Signs Blood pressure diastolic 77 mm Hg 02/06/2025 Height 65.5 in 02/06/2025 Blood pressure systolic 111 mm Hg 02/06/2025 Weight 120 lbs 02/06/2025 BMI 19.66 kg/m2 02/06/2025 Procedures Procedure Date Ordered Date Performed Result Body Sit e UPPER GI ENDOSCOPY 02/06/2025 N/A COLONOSCOPY 02/06/2025 N/A Encounters Encounter Location Date Provider Diagnosis [facility] [address] [place] [id number] 02/06/2025 Luis Antonio Strong History of adenomato us polyp of colon Z86.010 ; Abdominal pain, acute, left upper quadrant R10.12 and Encounter for screening for malignant neoplasm of colon Z12.11 [facility] [address] [place] [id number] 12/06/2024 Luis Antonio Strong Assessments Encounter Date [...] will obtain a clearance note from her assistant manager of operations as she has an appointment coming up [...] will obtain a clearance note from her assistant manager of operations as she has an appointment coming up [...] will obtain a clearance note from her assistant manager of operations as she has an appointment coming up [...] Name:Luis Antonio Strong , 05/19/2025 07:30:00 AM, [address] [place] [address] , [place], [place], [phone], Insurance Providers Payer Name Payer Address Payer Phone Subscriber Number Group Number Insured Name Patient Relationship to Insured Coverage Start Date Coverage End Date [facility] [address] [place] [address] [id number] FLORENTIN ALBA Self - patient is the insured Medical (General) History Medical History History ICD Code Screening Colonoscopy 2007- 1 tubular adenoma removed- mild sigmoid diverticulosis; neg. colonoscopy in 07/2013 Osteoporosis COPD Denies FL,DM,CVA,renal disease Depression/anxiety Over-active bladder Hyperlipidemia Negative screening colonoscopy in 0 Surgical History Surgery Date(Month/Year) Oral surgery
== END 2025-04-17 15:02 | disposition home or self-care (01) ==
LOC: HO.HCS 14:00
PROVIDERS: PCP Nurse Practitioner Family; Visit Provider Internal Medicine Cardiovascular Disease
DX: I25.10 Atherosclerotic heart disease of native coronary artery without angina pectoris (principal)
CPT/HCPCS: 99213; G2211

== ENCOUNTER → 2025-04-17 13:59 | Outpatient (BNVA) | payer MEDICARE, SELFPAY | PROVIDERS: PCP Nurse Practitioner Family; Visit Provider Internal Medicine Cardiovascular Disease | DX: I25.10 Atherosclerotic heart disease of native coronary artery without angina pectoris (principal); F17.210 Nicotine dependence, cigarettes, uncomplicated | CPT/HCPCS: 99212 ==

== ENCOUNTER 2025-05-19 06:24 | Day surgery (SDC) | payer MEDICARE, SELFPAY ==
--- NOTE | 2025-05-14 08:45 | HO.ANESPROP2 ---
Documented by User: Erlinda Rolle NP 05/14/25 08:48 HPI - Anesthesia Eval Consult details Narrative: 70yo F for Upper Endoscopy and Colonoscopy Cardiac optimized. [facility] [place] Cardiology eval for CAD seen on CT. Recent nml nuc stress. PRN f/u only PMFSH Active Problems Active Problems: All Active Problems Full code status (Acute ~04/14/25) Hearing loss (Acute) Family history of breast cancer (Acute) ACP (advance care planning) (Acute) Encounter for initial annual wellness visit (AWV) in Medicare patient (Acute ~04/14/25) GERD (gastroesophageal reflux disease) (Acute) Constipation (Acute) Epigastric pain (Acute) Shoulder pain (Acute) Nondisplaced fracture of distal end of radius (Acute) Strain of left wrist (Acute) Skin eruption (Acute) Thyroid nodule (Acute) Herpes zoster vaccination declined (Acute) Pneumococcal vaccination declined (Acute) Influenza vaccination declined (Acute) PVD (peripheral vascular disease) (Acute) CAD (coronary artery disease) (Acute) Osteopenia (Acute) COPD (chronic obstructive pulmonary disease) (Acute) Overactive bladder (Acute) SCCA (squamous cell carcinoma) of skin (Acute) EZEQUIEL (generalized anxiety disorder) (Acute) MDD (major depressive disorder), recurrent episode (Acute) Tobacco dependence (Acute) Lymphadenopathy (Acute) Hyperlipemia (Acute) Laboratory exam ordered as part of routine general medical examination (Acute) Past Medical History Medical History Nondisplaced fracture of distal end of radius Strain of left wrist Skin cancer Overactive bladder Hyperlipemia Anxiety Depression COPD (chronic obstructive pulmonary disease) Osteoporosis Family History Family History Mother High cholesterol Colon cancer Father Cardiovascular disease Sister Breast cancer Surgical History Surgical History H/O oral surgery Hx of colonoscopy (~2019) Social History Social History Household Members: None Housing: House Are you a primary career center director to a significant other at home: No Do you presently have visiting nurse or other home services: No Alcohol intake: current Alcohol intake frequency: 0-2 drinks per day Alcohol type: wine Patient Tobacco Use Status: Current everyday Tobacco user Tobacco use type: Cigarette Cigarette Packs Per Day: 0.5 Cigarettes Per Day: 12 e-Cigarette/Vaping Use: Never Used Use of substances other than those prescribed or required for medical reasons: No Are you DNR?: No Advance Directives: No Advance Directives Information Provided: Yes Advance Directives Date on File: 08/31/20 Patient : No : No service: No Current occupational status: employed Current occupation: [employer] Cognitive needs: No Hearing needs: Yes (has hearing aid) Vision needs: Yes (wear glasses) Meds Allergies Allergy/AdvReac Type Severity Reaction Status Date / Time doxycycline Allergy Severe Itching Verified 04/15/25 14:49 Home Medications ?Medication ?Instructions ?Recorded ?Confirmed ?Last Taken ?Type cholecalciferol (vitamin D3) 50 50 mcg PO DAILY 03/16/20 05/13/25 Unknown History mcg (2,000 unit) capsule (Vitamin D3) omeprazole 40 mg capsule,delayed 40 mg PO DAILY 04/17/25 05/13/25 Unknown History release calcium-mag oxide-vitamin D3 250 2 cap PO DAILY 05/13/25 05/13/25 Unknown History mg-125 mg-100 unit capsule (Coral Calcium) Exam Height,Weight and Vital Signs: Height 5 ft 5 in Weight 54.431 kg Narrative Narrative: EKG 03/2025 NSR @ 61 NM cardiolite stress test 12/2024 IMPRESSION: 1. Myocardial perfusion imaging study shows normal myocardial perfusion. 2. Gated LVEF is 55%. 3. Transient ischemic dilatation not present. EKG revealed borderline ischemic changes. Assessment and Plan Assessment Anesthesia Assessment: Chart Reviewed Documented by User: Sam Vasquez MD 05/19/25 07:28 [facility] Past Medical History Medical History Nondisplaced fracture of distal end of radius Strain of left wrist Skin cancer Overactive bladder Hyperlipemia Anxiety Depression COPD (chronic obstructive pulmonary disease) Osteoporosis Family History Family History Mother High cholesterol Colon cancer Father Cardiovascular disease Sister Breast cancer Family history of problems with anesthesia: No Surgical History Surgical History H/O oral surgery Hx of colonoscopy (~2019) History of Problems with Anesthesia: No Social History Social History Household Members: None Housing: House Are you a primary career center director to a significant other at home: No Do you presently have visiting nurse or other home services: No Alcohol intake: current Alcohol intake frequency: 0-2 drinks per day Alcohol type: wine Patient Tobacco Use Status: Current everyday Tobacco user Tobacco use type: Cigarette Cigarette Packs Per Day: 0.5 Cigarettes Per Day: 12 e-Cigarette/Vaping Use: Never Used Use of substances other than those prescribed or required for medical reasons: No Are you DNR?: No Advance Directives: No Advance Directives Information Provided: Yes Advance Directives Date on File: 08/31/20 Patient : No : No service: No Current occupational status: employed Current occupation: [employer] Cognitive needs: No Hearing needs: Yes (has hearing aid) Vision needs: Yes (wear glasses) Meds Allergies Allergy/AdvReac Type Severity Reaction Status Date / Time doxycycline Allergy Severe Itching Verified 04/15/25 14:49 Home Medications ?Medication ?Instructions ?Recorded ?Confirmed ?Last Taken ?Type cholecalciferol (vitamin D3) 50 50 mcg PO DAILY 03/16/20 05/13/25 Unknown History mcg (2,000 unit) capsule (Vitamin D3) omeprazole 40 mg capsule,delayed 40 mg PO DAILY 04/17/25 05/13/25 Unknown History release calcium-mag oxide-vitamin D3 250 2 cap PO DAILY 05/13/25 05/13/25 Unknown History mg-125 mg-100 unit capsule (Coral Calcium) Exam Airway Mallampati Class: III TM Dist: >3cm Loose/Missing/Broken Teeth: No Heart: ormal Lungs: normal Other: normal Assessment and Plan Assessment Anesthesia Assessment: Anesthesia Plan Discussed Final Anesthetic Review Family History of Problems with Anesthesia: No History of Problems with Anesthesia: No NPO: Yes ASA Class: III Final Preanesthetic Review: No Changes in Pt Med Stat, Meds/Allgs Chart Reviewed and Consent Obtained/Reviewed Patient Risk: Intermediate Procedure Risk: Low Anesthetic Plan Anesthetic Plan: MAC: Disposition: Standard PACU
[2025-05-19 06:45] VITALS: BMI 19.4
[2025-05-19 06:53] VITALS: BP 106/69; PULSE 86; RESP 16; TEMP 36.2; O2SAT 98
[2025-05-19] MEDS: Lactated Ringers 1,000 ML 100 ML IVCONT (07:13)
[2025-05-19 09:00] VITALS: BP 127/92; PULSE 120; RESP 16; TEMP 36.2; O2SAT 97
--- NOTE | 2025-05-19 09:02 | P.BOP_ITS ---
Brief Operative Note Date of Service: 05/19/25 Pre-op diagnosis: Abd pain, Screening Post-op diagnosis: other (Gastritis, Rectal polyp) Procedure: EGD with bx, Colonoscopy to the cecum with bx/removal of polyp Surgeon: Luis Antonio Strong MD Anesthesia: MAC Was an Correspondence Section Supervisor used for this Procedure?: No Estimated blood loss (mL): 2.0 Pathology: other (A. Gastric antrum B. EG Junction at 38cm C. Rectal polyp) Condition: stable Disposition: PACU
[2025-05-19 09:16] VITALS: BP 131/59; PULSE 85; RESP 22; TEMP 36.3; O2SAT 100
--- NOTE | 2025-05-19 09:51 | OP_ITS ---
DATE OF SERVICE: 05/19/2025 SURGEON: Luis Antonio Strong MD INDICATIONS: The patient presents for evaluation of abdominal pain, history of tubular adenoma of the colon, and colorectal cancer screening. Full consent has been obtained from her for this, including risks of bleeding and perforation. PREOPERATIVE DIAGNOSIS: POSTOPERATIVE DIAGNOSIS: PROCEDURE PERFORMED: Esophagogastroduodenoscopy with biopsies, and colonoscopy to the cecum with biopsy and removal of polyp. ESTIMATED BLOOD LOSS: COMPLICATIONS: ANESTHESIA: Medication used, monitored anesthesia care. ASSISTANTS: SPECIMENS: PREOPERATIVE DIAGNOSES: Abdominal pain, history of a tubular adenoma of the colon, family history of colon cancer, and colorectal cancer screening. POSTOPERATIVE DIAGNOSES: Abdominal pain, history of a tubular adenoma of the colon, family history of colon cancer, and colorectal cancer screening, mild gastritis, small hiatal hernia, changes of gastroesophageal reflux, rectal polyp, diverticulosis, and internal hemorrhoids. DESCRIPTION OF PROCEDURE: The patient was placed in the left lateral decubitus position. The Olympus video gastroscope was passed in the posterior oropharynx and upper esophagus under direct vision. The scope was passed slowly into the distal esophagus. The gastroesophageal junction appeared at 38 cm. There was some slight erythema and edema, but no evidence of any erosions nor ulceration. There was no gross evidence of Arizmendi's esophagus. The scope entered into the stomach. There was a small hiatal hernia. The scope was advanced to the pylorus, and the duodenum was cannulated to the descending portion. The duodenum, including the bulb, appeared normal without mass or ulceration. Scope was withdrawn back into the stomach. The gastric antrum and body had changes of edema and erythema but no erosions or ulceration. There was good peristalsis. The scope was retroflexed, visualizing the proximal stomach carefully, which appeared normal, without any sign of mass or ulceration. The scope was straightened. Biopsies were obtained from the gastric antrum. The scope was withdrawn back in the esophagus. Biopsies were obtained at the EG junction at 38 cm. Proximal to this, the esophageal mucosa appeared normal. The scope was withdrawn from the patient. She was turned around for the colonoscopy. The digital rectal exam revealed no abnormalities. The Olympus video pediatric colonoscope was entered into the rectum and advanced to the cecum. Once in the cecum, I did identify a normal-appearing cecal pouch with an appendiceal orifice and a normal-appearing ileocecal valve. The entire cecum and ileocecal valve appeared normal. There was transillumination of light deep in the lower quadrant. The scope was then slowly withdrawn, assessing all mucosal surfaces carefully. Preparation was excellent. The procedure was made difficult by her almost continuous coughing in relation to some underlying lung disease from smoking. There was a [id number] amount of sigmoid diverticulosis. I did not visualize any sign of colitis nor angiodysplasia. In the rectosigmoid area were several hyperplastic-appearing less than 5 mm polyps, which were not biopsied or removed. However, in the rectum was an approximately a 3 or 4 mm probable adenomatous polyp that was biopsy and removed completely with a cold biopsy forceps. The scope was retroflexed visualizing internal hemorrhoids, but no other pathology. The scope was straightened and withdrawn from the patient. She tolerated both procedures well and was returned to the recovery area in stable condition. IMPRESSION: 1. Gastritis. 2. Hiatal hernia and gastroesophageal reflux. 3. Rectal polyp. 4. Diverticulosis. 5. Internal hemorrhoids. PLAN: The results of the pathology will be checked. She said she has been doing well since she stopped her omeprazole, and I think she can remain off that. If H pylori is present in the biopsies, we would decide about treating that given the previous history of abdominal pain, although she has had no documented history of ulcer disease. If the colon polyp is a tubular adenoma, I would recommend a followup coloscopy in 5 years. If it is only hyperplastic, then I think she would not need any further screening colonoscopies given a negative exam in 2019 and her family history of her mother having colon cancer but at a very advanced age in her late 80s. She was advised not to use any aspirin or NSAIDs for 1 week. She will otherwise see me as needed. MD DESMOND Altman/JOHN / [id number] RAPHAEL
== END 2025-05-19 09:59 | disposition home or self-care (01) ==
PROVIDERS: PCP Nurse Practitioner Family; Visit Provider Internal Medicine
PROC: (CPT 45380; principal; 2025-05-19 07:30)
DX: Z12.11 Encounter for screening for malignant neoplasm of colon (principal); R10.12 Left upper quadrant pain; Z86.0101 Personal history of adenomatous and serrated colon polyps; Z80.0 Family history of malignant neoplasm of digestive organs; K21.00 Gastro-esophageal reflux disease with esophagitis, without bleeding; K64.8 Other hemorrhoids; K57.30 Diverticulosis of large intestine without perforation or abscess without bleeding; K63.5 Polyp of colon; K44.9 Diaphragmatic hernia without obstruction or gangrene; K29.70 Gastritis, unspecified, without bleeding
CPT/HCPCS: 45380; 43239; 88305; 88313; 88342; J2003; J2704; J3010

== ENCOUNTER 2025-05-21 14:51 | Outpatient (AMB) | payer MEDICARE, SELFPAY ==
--- OUTSIDE RECORDS SUMMARY | 2024-11-19 09:15 | XMS_ITS | Continuity of Care Document ---
Author Organization [facility] Address [address] [place] [address] Phone Care Team Providers Care Typing Office Worker Name Role Phone [place] KRISSYDarren Unavailable Unavailable Allergies, Adverse Reactions, Alerts Substance Reaction Status Criticality No Known Allergies Active No Inform ation Medications Medication Instructions Dosage Effective Dates (start - stop) Status Comments simvastatin 40 mg tablet - A ctive levothyroxine 125 mcg tablet TAKE 1 TABLET BY MOUTH ONCE DAILY IN THE MORNING ON AN EMPTY STOMACH - Active levothyroxine 150 mcg tablet TAKE 1 TABLET BY MOUTH ONCE DAILY IN THE MORNING ON AN EMPTY STOMACH - Active pantoprazole 40 mg tablet,delayed release TAKE 1 TABLET BY MOUTH ONCE DAILY 30 MINUTES TO ONE HOUR BEFORE MORNING MEAL - Active valsartan 160 mg tablet TAKE 1 TABLET BY MOUTH ONCE DAILY - Active prednisone 20 mg tablet TAKE 3 TABLETS B Y MOUTH ONCE DAILY FOR 2 DAYS THEN 2 ONCE DAILY FOR 2 DAYS THEN 1 ONCE DAILY FOR 2 DAYS - Active doxycycline hyclate 100 mg tablet - Active fluconazole 150 mg tablet TAKE 1 TABLET BY MOUTH ONCE DAILY - Active methylprednisolone 4 mg tablets in a dose pack TAKE BY MOUTH DIRECTED ON INSIDE OF PACKAGE - Active amoxicillin 875 mg tablet TAKE 1 TABLET BY MOUTH EVERY 12 HOURS FOR 10 DAYS - Active azithromycin 250 mg tablet - Active ibuprofen 800 mg tablet TAKE 1 TABLET BY MOUTH THREE TIMES DAILY NEEDED FOR PAIN - Active cyclobenzaprine 10 mg tablet TAKE 1 TABLET BY MOUTH ONCE DAILY AT BEDTIME NEEDED - Active amoxicillin 500 mg tablet TAKE 1 TABLET BY MOUTH EVERY 8 HOURS FOR 7 DAYS - Active Procedures Procedure Date Remov Fb Ext Eye; Conjunc Embe Ophth Serv: Exam-eval; Interme Advance Directives Directive Yes / No Effective Date File Name No Information Encounters Encounter Description Practice Location Reason(s) For Visit Diagnoses Date Provider Providers Copied on Encounter [facility], [address], [place], [place], [id number], [place] tel:[phone] [facility] problem (chief complaint) Foreign body in conjunctival sac, left eye, init encntr Lavern Banks. [address], [place], [address], [place]. tel:[phone] Referring Provider: Darren Puckett OD, [address], [place], [address]. tel:[phone] [facility], [address], [place], [place], [address], [place] tel:[phone] [facility] No Information Lavern Banks. [address], [place], [address], [place]. tel:[phone] Family History Family Member Type Diagnosis Age At Onset No Information Payers Payer name Insurance type Covered libertarian ID Authoriza tion(s) [facility] BL [id number] Social History Type Description Quantity Date Captured Comments Alcohol Use Details Unknown Caffeine Use Details Unknown Tobacco Use Status Unknown if ever smoked Smoking Status Unknown if ever smoked Non-Smoking Tobacco Use Details : No Details Available : No Details Available Sex Female Chief Complaint And Reason For Visit From encounter dated '11/19/2024 14:15'. problem (chief complaint). Description: The 69 year old female presents for problem in the left eye. Pt states she woke up this morning, and it felt like something is in her eye. Pt states she used some water into her eye and it felt better but the feeling is still there. Pt states that eye has been watering a lot, and dull pain, sometimes sharp. Reason For Referral Reason For Referral No Information History Of Present Illness Encounter Date Complaint History Of Prese nt Illness problem The 69 year old female presents for problem in the left eye. Pt states she woke up this morning, and it felt like something is in her eye. Pt states she used some water into her eye and it felt better but the feeling is still there. Pt states that eye has been watering a lot, and dull pain, sometimes sharp. Functional Status Date Functional Assessmen t No Information Instructions Date Instruction Additional Infor mation Foreign body in conj unctival sac, left eye, initial encounter, OS - removed with cta / at's give for comfort Related to Foreign body in conjunctival sac, left eye, initial encounter Assessments Type Assessment Date No Information Patient Care Teams Name Effective Dates (start - stop) Status Members No Information
--- OUTSIDE RECORDS SUMMARY | 2025-05-19 02:30 | XMS_ITS ---
Author Organization [facility] Address [address] [place] [phone] Care Team Providers Care Glove Maker Name Role Phone Shirley Kemp Primary Care Provider Unavaila Luis Antonio Kay Unavailable [phone] REASON FOR VISIT abdominal pain, screening, hx polyps Encounters Encounter Location Date Provider Diagnosis [facility] [place] Outpatient [address] [place] [phone] 05/19/2025 Luis Antonio Strong Plan Of Treatment No Information Progress Notes * FLORENTIN LEVYDOB:1955 (7 0 yo F)Acc No.[id number]:05/19/2025 EGD and COL/MAC Patient: FLORENTIN CHEUNG Provider: Sidra Strong MD :1955 A ge:70 Y S ex:Female Date:05/19/2025 [address] [id number] Pcp:Shirley Kemp Subjective: * Chief Complaints: * A bdominal pain, screening, hx polyps * The named appointment provid er may or may not be the originator of this progress note, and it is not deemed complete until electronically signed by the appointment provider. Sign off status: Pending * Provider: Sidra Strong MD Date: 07/20/2024 Generated for Heriberto wallace/Lupe/eTransmitting on: 07/22/2024 05:44 PM EST
--- NOTE | 2025-05-21 14:54 | A.OFFPC_ITS ---
Vital Signs 05/21/25 14:59 Height 5 ft 6 in Weight 125 lb 2 oz BMI 20.2 BP 94/52 L Blood Pressure Location Lt brachial Position Sitting Respiration 14 Pulse 89 Pulse Source Pulse Oximeter Temp 97.9 F Temp Source Oral Pulse Oximetry (%) 96 Oxygen Delivery Method Room Air Intake Visit Reasons: SOB, wants to discuss COPD medication Intake Note: COPD/SOB sxs for the past two weeks. Equipment Maintenance Engineer Required: No Allergies doxycycline Allergy (Severe, Verified 05/21/25 14:57) Itching Medication List - Last Reconciled 05/21/25 by Essence Villanueva PA-C atorvastatin (Lipitor) 40 mg PO DAILY calcium-mag oxide-vitamin D3 250-125-100 mg-mg-unit (Coral Calcium) 2 caps PO DAILY cholecalciferol (vitamin D3) (Vitamin D3) 50 mcg PO DAILY Tobacco use date assessed: 12/30/24 Fall risk assessment: 1 Fall in past year Last assessed Fall Risk: 05/21/25 Dental Screening Dental Screen Date: 12/30/24 HPI SOB, wants to discuss COPD medication 2 HPI Details Patient is a 70-year-old female who presents today to discuss shortness on breath. She normally follows with her PCP. Pulm: She has a hx of COPD and denies ever having pulmonary function testing but believes she was told that she had COPD just based off of a chest x-ray. She states that she does smoke and knows that this contributes to COPD. She states that every fall she gets wheezing and bronchitis symptoms that linger. She states that it is whenever she is raking the leaves that she will then develop the wheezing. She thinks she could be sensitive to something. She did have left over albuterol at home that did seem to help it. The symptoms have been going on since the fall. She says that she does not feel sick. She denies any chest pain. She did have a stress test earlier this year. [facility] Medical History (Updated 05/22/25 @ 11:58 by Leona Rosario PA-C) Nicotine dependence, cigarettes, uncomplicated Nondisplaced fracture of distal end of radius Strain of left wrist Skin cancer Overactive bladder Hyperlipemia Anxiety Depression COPD (chronic obstructive pulmonary disease) Osteoporosis Surgical History (Updated 05/20/25 @ 16:12 by OSMAN Clement-) H/O oral surgery Hx of colonoscopy (~05/20/25) Family History Mother High cholesterol Colon cancer Father Cardiovascular disease Sister Breast cancer Social History Household Members: None Both parents involved: No Caregiver staying overnight: No Housing: House Are you a primary client care coordinator to a significant other at home: No Do you presently have visiting nurse or other home services: No 75 years or older and lives alone: No Alcohol intake: current Alcohol intake frequency: 0-2 drinks per day Alcohol type: wine Patient Tobacco Use Status: Current everyday Tobacco user Tobacco use type: Cigarette Cigarette Packs Per Day: 0.5 Cigarettes Per Day: 12 Years Smoked: 52 Packs Per Year: 26 Packs per year/per ci.20 e-Cigarette/Vaping Use: Never Used Advance Directives Date on File: 08/31/20 service: No Current occupational status: employed Current occupation: [employer] Cognitive needs: No Hearing needs: Yes (has hearing aid) Vision needs: Yes (wear glasses) Questionnaire Thrive Questionnaire Date Thrive assessed: 09/16/24 I am a: Patient What is your living situation today?: I have a steady place to live Within the past 12 months, did the food you bought not last and you didn't have the money to get more?: Never true Within the past 12 months, did you worry whether your food would run out before you got money to buy more?: Never true Do you have trouble paying for medicines?: No Do you have trouble getting transportation to medical appointments?: No Do you have trouble paying your heating and electricity bill?: No Do you have trouble taking care of your child, family member or friend?: No Do you have trouble with day-to-day activities such as bathing, preparing meals, shopping, managing finances, etc.?: No Are you currently unemployed and looking for a job?: No Are you interested in more education?: No Please select the resources that you would like help with: None Currently or been in a relationship where the following occur: No concerns reported THRIVE Score: 0 AUDIT C Alcohol Use Questionnaire (AUDIT-C) 1. How often do you have a drink containing alcohol?: 2-4 times a month 2. How many drinks containing alcohol do you have on a typical day when you are drinking?: 1 or 2 3. How often do you have six or more drinks on one occasion?: Never Total Score: 2 EZEQUIEL-7 AMB Questionnaire EZEQUIEL-7 Date EZEQUIEL - 7 assessed: 09/23/24 Source: Developed by Drs. Luis Antonio Cota, Marlyn Stockton, August Díaz and colleagues, with an educational moy from [employer]. Physical exam (Primary Care) Vital Signs: Last Vital Signs Temp 97.9 F 05/21/25 14:59 Pulse 89 05/21/25 14:59 Resp 14 05/21/25 14:59 BP 94/52 L 05/21/25 14:59 Pulse Ox 96 05/21/25 14:59 Oxygen Delivery Method Room Air 05/21/25 14:59 BMI result Body Mass Index 20.2 Tobacco/Smoking Status: Tobacco use Status Tobacco use date assessed 12/30/24 05/21/25 15:03 Patient Tobacco Use Status Current everyday Tobacco 05/21/25 15:03 Tobacco use type Cigarette 05/21/25 15:03 e-Cigarette/Vaping Use Never Used 05/21/25 15:03 Thrive Assessment: Date of Thrive Assessment Date Thrive assessed 09/16/24 05/21/25 15:03 Currently or been in a relationship where the following occur: No concerns reported Const Orientation/consciousness: patient oriented x3 HENMT Ears: hearing grossly normal bilaterally Neck Thyroid: Thyroid normal Lymphatic: no lymphadenopathy noted Resp Other: Wheezing noted in the upper lungs. Normal respiratory effort. Able to speak in complete sentences. Symmetric chest movement. Cardio Rate: regular rate Rhythm: regular rhythm Heart sounds: S1 normal heart sound present and S2 normal heart sound present GI Inspection: Yes normal to inspection Palpation (GI): Soft to palpation and Other GI palpation findings present (nontender, no cva tenderness) Auscultation: normoactive bowel sounds Rectal Exam - Female: deferred Skin General skin exam: no rashes or lesions noted Neuro General: patient oriented x3, gait normal and no focal motor deficits Results Reviewed Results Reviewed: Laboratory Tests 11/27/24 03/26/25 14:52 07:50 WBC 9.4 RBC 4.32 Hgb 13.8 Hct 41.0 Plt Count 308 Creatinine 0.82 Estimated GFR > 60 Random Glucose 105 Estimat Average Glucose 103 Hemoglobin A1c % 5.2 Total Protein 6.1 L Albumin 4.2 Triglycerides 70 Cholesterol 185 LDL Cholesterol, Calc 107 H HDL Cholesterol 64 Vitamin B12 560 25-OH Vitamin D Total 75.7 Folate 9.9 TSH 0.87 Urine Creatinine 87.80 Urine Microalbumin 9.0 Microalb/Creat Ratio 10.2 NM/NM cardiolite stress test IMPRESSION: 1. Myocardial perfusion imaging study shows normal myocardial perfusion. 2. Gated LVEF is 55%. 3. Transient ischemic dilatation not present. 2 view chest x-ray. Comparison: CR/SR - XR CHEST 1V - 11/22/24 08:04 EDT Findings: No consolidation, pneumothorax, or effusion. Heart size normal. Impression: 1. No acute cardiopulmonary process. No focal pulmonary consolidation. Coding Level of Care Code Est Pt Level 4 (46586) Complex visit Add On G2211 Diagnoses Wheezing R06.2 Simple chronic bronchitis J41.0 COPD type: chronic bronchitis Chronic bronchitis type: simple Assessment & Plan Assessment & Plan (1) Wheezing: Code(s): R06.2 - Wheezing Category: Medical Plan: We will try prednisone taper. Discussed risks and benefits and adverse effects of this medication. Albuterol ordered for her to try today. She will let me know if anything worsens or changes. We did discuss doing imaging but she wants to hold off on this. I have referred her to pulmonology. Encouraged smoking cessation (2) COPD (chronic obstructive pulmonary disease): Comment: Without exacerbation, managed without inhalers, active with lung cancer screening program, smoking cessation encouraged Code(s): J44.9 - Chronic obstructive pulmonary disease, unspecified Category: Medical Qualifiers: COPD type: chronic bronchitis Chronic bronchitis type: simple Qualified Code(s): J41.0 - Simple chronic bronchitis Plan: Was previously managed without inhalers Orders: Referrals Pulmonology Referral J41.0 - Simple chronic bronchitis, R06.2 - Wheezing Medications: New prednisone take 3 tab po x 3 days, take 2 tab po x 3 days, 1 tab po x 3 days 18 tabs 0RF albuterol sulfate 90 mcg/actuation (Ventolin HFA) 2 puffs inhalation QID PRN 8.5 grams 0RF shortness of breath or wheezing fluticasone propionate 50 mcg/actuation (Flonase Allergy Relief) administer into each nostril 1 spray intranasal Q12H 16 grams 0RF
[2025-05-21 14:59] VITALS: BP 94/52; PULSE 89; RESP 14; TEMP 36.6; O2SAT 96; BMI 20.2
--- OUTSIDE RECORDS SUMMARY | 2025-05-21 17:45 | XMS_ITS | Clinical Summary ---
Author Organization [facility] Address [address] [place] [address] Phone Care Team Providers Care Gerontological Nurse Practitioner Name Role Phone Shirley Crespo NP Primary [...] chills, facial swelling, neck stiffness, or concerns. Encounters Date Type Department Care Team Description 04/29/2025 Refill [facility] Internal Medicine [address] [place] [address] Adán Boone MD Medication Refill from Last 3 Months Immunizations Immunization Administration Dates Next Due COVID-19 [...] Alive Daughter 2 Alive Father (Age 59) [place] Mother (Age 87) Sibling Sister 1 Alive [...] INFLUENZA VACCINE (#1) 2025 04/05/2022 COVID-19 VACCINE ( season) 2025 04/13/2022, 04/19/2021, 06/26/2020, Additional history [...] * OUTSIDE BONE DENSITY SCREENING (07/14/2023) Pathologist [facility] BONE DENSITY SCREENING - EXTERNAL osteopenia Result [facility] Historical Provider HEALTH MAINTENANCE Final Result * MAMMOGRAPHY FOR RESULT ENTRY ONLY (07/04/2023 4:48 PM EST) Nguyen Dewitt NP HEALTH MAINTENANCE Final Result * Hepatitis C antibody, qualitative (03/08/2021) Nguyen Dewitt NP LAB BLOOD BKR ORDERABLES Edited Result - Final * Outside HDL (03/08/2021) Pathologist [facility] HDL - External 79 40 - 80 mg/dL Result [facility] Historical Provider LAB BLOOD ORDERABLES Cris l Result * COLONOSCOPY FOR RESULT ENTRY ONLY (03/20/2020) Pathologist [facility] Colonoscopy 5 yr recall Result [facility] Historical Provider HEALTH MAINTENANCE Final Result from Last 3 Months or Most Recently Relevant to Health Maintenance Insurance MEDICARE PPO BLUE [place] [address] MEDICARE PPO BLUE [place]PLACEMENT [place] [address] MEDICARE PPO BLUE REPLACEMENT . [place] [facility] MEDICARE PPO BLUE REPLACEMENT . [place] [facility] MEDICARE PPO BLUE REPLACEMENT . [place] [facility] MEDICARE PPO BLUE REPLACEMENT . [place] Care Teams Gerontological Nurse Practitioner Relationship Specialty Start Date End Date Shirley Crespo NP [address] [place] [id number] [email or web address] PCP - General Nurse Practitioner 11/29/24 Additional Source Comments The information contained in this document represents components of the legal health record. It is not the complete legal health record.[facility]
--- OUTSIDE RECORDS SUMMARY | 2025-05-21 17:45 | XMS_ITS | Patient Health Record ---
Author Organization [facility] Address [address] [place] [address] Care Team Providers Care Assistant Guest Services Manager Name Role Phone Shirley Kemp Primary Care Provider Luis Antonio Ho Unavailable [phone] Allergies No Known Allergies Results Component Value Reference Range Notes NM hepatobiliary w pharm Reviewed date:01/12/2025 10:35:17 PM Interpretation: Performing Lab: Notes/Report: [address] [place] [address] Nuclear Medicine Report Signed Patient: Florentin Alba MR#: [id number] : 1955 Acct:[id number] Age/Sex: 69 / F ADM Date: 12/03/24 Loc: PO Attending Dr: Shirley DÍAZ Ordering Physician: Shirley Kemp Date of Service: 12/03/24 Procedure(s): MT hepatobiliary w pharm Accession Number(s): [id number] cc: Shirley Kemp; Luis Antonio Strong MD EXAMINATION: MT BILIARY TRACT CLINICAL INFORMATION: Unspecified shoulder pain [...] 12/03/24 1103 DD/ 0817 TD/TT: 12/03/24 1000 Glue Machine Operator: [facility] Pathology (Not yet reviewed by provider) Interpretation: Performing Lab:[facility], [address] [place] [phone] Notes/Report: Reason For Referral No Information Medications Medication SIG (Take, Route, Frequency, Duration) Notes Start Date End Date Status Atorvastatin Calcium 20 MG Tablet 1 tablet Orally Once a day Active Vitamin D 50 MCG (1999) Tablet 1 tablet Orally Once a day; Duration: 30 day(s) Active [place] 3 1000 MG Capsule 1 capsule Orally Once a day; Duration: 30 day(s) Not-Taking/PRN Coral Qjudqft-Ykncrzqtt-Tre D 250-125-200 MG-MG-UNIT Capsule 2 capsules with a meal Orally Once a day; Duration: 30 day(s) Active Omeprazole 40 MG Capsule Delayed Release Oral; Duration: 90 Days Active Immunizations Vaccine Route Administration Date Status Comme nts Influenza Unknown 07/03/2019 Refused Social History Tobacco Use: Social History Observation Description Date Details (start date - stop date) Current Smoker NA - NA Social History Drugs/Alcohol: Social Info Question Answer Notes Alcohol Screen Did you have a drink containing alcohol in the past year? Yes How often did you have a drink containing alcohol in the past year? Monthly or less (1 point) How many drinks did you have on a typical day when you were drinking in the past year? 1 or 2 drinks (0 point) How often did you have 6 or more drinks on one occasion in the past year? Never (0 point) Points 1 Interpretation Negative Tobacco Use: Social Info Question Answer Notes Tobacco Use/Smoking Patient is a current smoker How often do you smoke cigarettes? every day How many cigarettes a day do you smoke? 6-10 How soon after you wake up do you smoke your first cigarette? 6-30 minutes Are you interested in quitting? 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 Section Notes: Smoker; 4 glasses of wine pe r week Smoker 1/2 ppd; 4 glasses of wine per week Smoker 1/2 ppd; 4 glasses of wine per week Problems Problem Type SNOMED Code ICD Code Onset Dates Problem Status W/U Status Risk Notes Problem Screening for malignant neoplasm of colon (006089088) Encounter for screening for malignant neoplasm of colon (Z12.11) Active confirmed Problem History of adenomatous polyp of colon (749546534) History of adenomatous polyp of colon (Z86.010) Active confirmed Problem Preprocedural examination (892403604561226) Preprocedural examination (Z01.818) Active confirmed Problem Left upper quadrant pain (257244496) Abdominal pain, acute, left upper quadrant (R10.12) Active confirmed Vital Signs Blood pressure diastolic 77 mm Hg 02/06/2025 Height 65.5 in 02/06/2025 Blood pressure systolic 111 mm Hg 02/06/2025 Weight 120 lbs 02/06/2025 BMI 19.66 kg/m2 02/06/2025 Procedures Procedure Date Ordered Date Performed Result Body Sit e UPPER GI ENDOSCOPY 02/06/2025 N/A COLONOSCOPY 02/06/2025 N/A Encounters Encounter Location Date Provider Diagnosis [facility] Outpatient [address] [place] [phone] 05/19/2025 Luis Antonio Strong [facility] [address] [place] [phone] 02/06/2025 Luis Antonio Strong History of adenomatous polyp of colon Z86.010 ; Abdominal pain, acute, left upper quadrant R10.12 and Encounter for screening for malignant neoplasm of colon Z12.11 [facility] [address] [place] [phone] 12/06/2024 Luis Antonio Strong Assessments Encounter Date [...] will obtain a clearance note from her mysql developer as she has an appointment coming up [...] will obtain a clearance note from her mysql developer as she has an appointment coming up [...] will obtain a clearance note from her mysql developer as she has an appointment coming up [...] Date UPPER GI ENDOSCOPY 02/06/2025 COLONOSCOPY 02/06/2025 Pathology 05/19/2025 Future Test Test Name Order Date COLONOSCOPY 05/01/2013 COLONOSCOPY 07/03/2019 Insurance Providers Payer Name Payer Address Payer Phone Subscriber Number Group Number Insured Name Patient Relationship to Insured Coverage Start Date Coverage End Date [facility] [address] [place] [address] [id number] FLORENTIN ALBA Self - patient is the insured Medical (General) History Medical History History ICD Code Screening Colonoscopy 2007- 1 tubular adenoma removed- mild sigmoid diverticulosis; neg. colonoscopy in 07/2013 Osteoporosis COPD Denies [place],DM,CVA,renal disease Depression/anxiety Over-active bladder Hyperlipidemia Negative screening colonoscopy in 0 Surgical History Surgery Date(Month/Year) Oral surgery
== END 2025-05-21 15:32 | disposition home or self-care (01) ==
LOC: HO.HMCFM 14:52
PROVIDERS: PCP Nurse Practitioner Family; Visit Provider Physician Assistant
DX: R06.2 Wheezing (principal); J41.0 Simple chronic bronchitis

== ENCOUNTER → 2025-05-21 14:51 | Outpatient (BNVA) | payer MEDICARE, SELFPAY | PROVIDERS: PCP Nurse Practitioner Family; Visit Provider Physician Assistant | DX: J41.0 Simple chronic bronchitis (principal); R06.2 Wheezing | CPT/HCPCS: 99212 ==